=== PATIENT | male | born 1980 | race Caucasian/White ===

== ENCOUNTER → 2017-06-23 11:16 | Outpatient (CLI) | payer OTHER, SELFPAY ==
--- NOTE | 2017-06-23 11:23 | RAD_ITS ---
STUDY: X-RAY - LEFT KNEE REASON FOR EXAM: Male, 37 years old. Left knee pain. TECHNIQUE: 3 view(s) of the knee. COMPARISON: None. FINDINGS: Normal visualized distal femur. Normal visualized proximal tibia and fibula. Normal proximal tibiofibular articulation. Normal medial femorotibial compartment. Normal lateral femorotibial compartment. Normal patellofemoral articulation. The soft tissue structures are unremarkable. RAD/Knee 3 Views IMPRESSION: Normal x-ray examination of the knee. Electronically Signed: Adrien Butcher MD at 16:04 EST Tel [phone], Service support ,
== END ==
PROVIDERS: Family Provider Family Medicine; PCP Family Medicine; Visit Provider Family Medicine
DX: M25.562 Pain in left knee (principal)
CPT/HCPCS: 73562

== ENCOUNTER 2017-08-02 07:52 | Outpatient (RCR) | payer OTHER, SELFPAY ==
--- NOTE | 2017-08-02 08:45 | HP.PTEVAL_ITS ---
Patient's Visit Information CAYDEN CREWS is a 37 year old M referred to Physical Therapy by Cyrus MARTINEZ with a diagnosis of Left Knee Pain. Date of Evaluation: 08/02/17 Physical Therapist: Conchis Caruso - Visit Plan Frequency: 1x/Week Duration: 4 Weeks Plan: HEP - Subjective Subjective: Patient reports left knee around Thanksgiving- felt a pulsating intense pain behind the knee cap just standing- lasted 20 seconds- very painful - continued to do this for about 2-3 days then it went away completely. Comes and goes. A month ago it started up again- less pulsing and more of a stabbing pain on the outside. Random but was happening more- he can shift and the pain goes away. Now it happens once every couple of days. Can't seem to re-create the pain or know when its going to happen. 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 Has been working out more 2x a week- no legs yet- running (track) and upper body. No pattern and can't figure it out. Worst: 6/10 Best: 0/10 Describes as sharp stabbing on the lateral joint line. no radiating no N/T. Has never had knee problems before that. Normally wears good shoes for work. Has had an x-ray which was negative and has an MRI scheduled tomorow at the hospital. Sleep: no- side PMHx: none Meds: Naproxen. - Objective Posture: good throughout. Gait: no deviation. SLS: 15 sec then lob. HR/TR: wnl. squat: weight shift to the right mild. ROM: 0-130 degrees. WNL: wnL. Strength: ankle: 5/5, Knee: 5/5, Hip: 4+/5. Flex: HS: severe, gastroc: mod. Special Test: Lloyd: negative - Goals Goal 1:: Patient will be I with HEP and progression Goal Time Frame: 4-6 Weeks Goal 2:: Patient will report 0/10 pain for 1 week Goal Time Frame: 4-6 Weeks - Rehabilitation Potential Physical Therapy Diagnosis: Patient presents with hypomobility- he has decreased strength and stabilization on the left leading to increased pain Rehabilitation Potential: Good - Anticipated Interventions Patient/Client Instruction: Educate patient on: Condition For the Purpose of:: To improve muscle performance and motor function Therapeutic Exercise to Include: Strength training, Endurance training, Balance training, Agility training, Body mechanics, Flexibilty training, Dynamic Lumbar Stabilization For the Purpose of:: To improve muscle performance and motor function Thank you for the opportunity to evaluate your patient. For Medicare and Medicare HMO plans, please review the plan of care and approve it. It will need to be FAXED BACK to us at [phone] for Medicare purposes. Please let me know if there are questions or concerns regarding this plan of care. Physician Signature: Date:
--- NOTE | 2017-10-04 14:08 | HP.PT.NRP ---
HP - Discharge Summary (1) - Patient Information CAYDEN CREWS was seen in my office for initial evaluation on 08/02/17. The following Plan of Care was established for this patient: Initial Frequency: 1x/Week Initial Duration: 4 Weeks - Anticipated Interventions Patient/Client Instruction: Educate patient on: Condition For the Purpose of:: To improve muscle performance and motor function Therapeutic Exercise to Include: Strength training, Endurance training, Balance training, Agility training, Body mechanics, Flexibilty training, Dynamic Lumbar Stabilization For the Purpose of:: To improve muscle performance and motor function This patient was last seen in our office . Pertinent comments regarding their Physical therapy will appear below: Patient has not returned for 60 days and is appropriate for discharge. Return to MD for further evaluation as needed. At this point I will be discontinuing this patient from physical therapy. I would be happy to see this patient again in the future if found appropriate by the physician. Thank you! Conchis Caruso
== END 2017-08-02 19:00 | disposition home or self-care (01) ==
LOC: PT 07:52
PROVIDERS: Family Provider Family Medicine; PCP Family Medicine; Visit Provider Family Medicine
DX: M25.562 Pain in left knee (principal)
CPT/HCPCS: 97161

== ENCOUNTER → 2017-08-03 09:24 | Outpatient (CLI) | payer OTHER, SELFPAY ==
--- NOTE | 2017-08-03 09:29 | MRI_ITS ---
STUDY: MRI LEFT KNEE REASON FOR EXAM: Anterior knee pain since March, no specific injury. TECHNIQUE: Standardized fat and water weighted pulse sequences were obtained in all 3 orthogonal planes. COMPARISON: Radiographs 06/23/2017. FINDINGS: Normal medial meniscus. Normal hyaline cartilage of the medial femorotibial compartment. Normal medial femoral condyle and tibial plateau. Normal medial collateral ligamentous complex (MCL). There is a small volume of fluid in the semimembranosus bursa (T2 sagittal image 4). Normal lateral meniscus. Normal hyaline cartilage of the lateral femorotibial compartment. Normal lateral femoral condyle and tibial plateau. Normal proximal tibiofibular articulation. Normal lateral collateral (fibular) ligament. Normal popliteus tendon. Normal biceps femoris tendon. Normal anterior cruciate ligament (ACL). Normal posterior cruciate ligament (PCL). Normal congruent patellofemoral articulation. There is a small chondral tear of the lateral patellar facet near the median ridge (T2 axial image 9). Normal medial and lateral patellar retinaculum. Normal visualized quadriceps tendon. Normal patellar tendon. Normal Hoffa's fat pad. There is no joint effusion. There is a minimal popliteal cyst (T2 coronal image 2). The otherwise visualized osseous structures are unremarkable. MRI/Lower Ext Joint Only (Routine) IMPRESSION: Small chondral tear of the lateral patellar facet. Mild semimembranosus bursitis. No demonstrated meniscal or ligamentous injury. Electronically Signed: Hugh Carrera MD at 10:38 EDT Tel , Service support ,
== END ==
PROVIDERS: Family Provider Family Medicine; PCP Family Medicine; Visit Provider Family Medicine
DX: M25.569 Pain in unspecified knee (principal)
CPT/HCPCS: 73721

== ENCOUNTER → 2020-01-30 09:39 | Outpatient (CLI) | payer OTHER, SELFPAY ==
[2017-08-11 09:31] VITALS: BMI 25.9
[2020-01-30 12:54] LABS: Absolute Lymphocyte Count 2.36 X10^3/uL (0.83-4.51); Absolute Neutrophil Count 3.3 X10^3/uL (2.0-7.7); Basophil# 0.04 X10^3/uL; Basophil% 0.6 % (0-1); Eosinophil# 0.22 X10^3/uL; Eosinophils% 3.3 % (0-5); Hematocrit 48.5 % (40-54); Hemoglobin 15.6 g/dL (13.0-16.5); Lymphocyte # 2.36 X10^3/ul (4.0); Lymphocyte % 35.6 % (19-41); Mean Corp Hgb Conc 32.2 g/dL (32-36); Mean Corpuscular Hgb 29.2 pg (27.0-32.0); Mean Corpuscular Volume 90.8 fL (80-94); Mean Platelet Vol. 11.8 fl (6.2-12.0); Monocyte# 0.66 X10^3/uL; NRBC Flagged by Analyzer 0 % (0-5); Neutrophil # 3.33 X10^3/uL (2.7-7.7); Neutrophil % 50.2 % (47-70); Platelet Count 221 K/mm3 (150-450); RBC Distribution Width CV 12.8 % (11.6-14.6); RBC Distribution Width SD 41.8 fl (35.1-43.9); Red Blood Count 5.34 M/mm3 (4.6-6.2); White Blood Count 6.6 K/mm3 (4.4-11.0)
[2020-01-30 13:19] LABS: Anion Gap 3 (5-15); BUN 19 mg/dL (7-18); BUN/Creat Ratio 20.8 RATIO (10-20); Calcium,Total 8.8 mg/dL (8.5-10.1); Chloride 109 mmol/L (98-107); Cholesterol 229 mg/dL (200); Creatinine, Serum 0.91 mg/dL (0.70-1.30); EST Glomerular Filtration Rate 97 mL/min (>60); Est Glom Filt Rate - Afr Amer 117 mL/min (>60); Glucose 100 mg/dL (74-106); High Density Lipoprotein 51 mg/dL; Potassium 3.7 mmol/L (3.5-5.1); Sodium Level 142 mmol/L (136-145); Thyroid Stim Hormone (TSH) 1.16 uIU/mL (0.358-3.74); Triglycerides 73 mg/dL; Very Low Density Lipoprotein 15 mg/dL (5-40)
[2020-01-30 13:58] LABS: Vitamin D,25 Hydroxy 45.5 ng/mL
== END ==
PROVIDERS: PCP Family Medicine; Referring Provider Family Medicine; Visit Provider Family Medicine
DX: Z00.00 Encounter for general adult medical examination without abnormal findings (principal); R53.83 Other fatigue
CPT/HCPCS: 36415; 80048; 80061; 82306; 84443; 85025

== ENCOUNTER → 2020-07-10 11:29 | Outpatient (CLI) | payer OTHER, SELFPAY ==
[2017-08-11 09:31] VITALS: BMI 25.9
[2020-07-10 16:11] LABS: Cholesterol 147 mg/dL (200); High Density Lipoprotein 53 mg/dL; Triglycerides 52 mg/dL; Very Low Density Lipoprotein 10 mg/dL (5-40)
== END ==
PROVIDERS: PCP Family Medicine; Referring Provider Family Medicine; Visit Provider Family Medicine
DX: E78.5 Hyperlipidemia, unspecified (principal)
CPT/HCPCS: 36415; 80061

== ENCOUNTER → 2021-02-26 13:32 | Outpatient (CLI) | payer OTHER, SELFPAY ==
--- NOTE | 2021-02-26 13:37 | VDLE_ITS ---
Reason For Study: Phlebitis amd thrombophlebitis Procedure LEFT This is a venous duplex using B-mode, color GSV is normal. flow and spectral Doppler. CFV is compressible, spontaneous, phasic, Exam performed in department. competent, and demonstrates normal A preliminary report was called and/or faxed augmentation. to Mark[facility]. FV is compressible, spontaneous, phasic, competent and demonstrates normal augmentation. POP V is compressible, spontaneous, phasic, competent and demonstrates normal augmentation. T/P Trunk is compressible. PTV is compressible. LT PerV is compressible. VL/Venous Duplex US, Unilateral Interpretation Summary Deep veins of the left lower extremity are patent and compressible segmentally. There is no evidence of left lower extremity deep vein thrombosis. Valvular competence appears intac t within the proximal deep venous system on the left . The left great saphenous vein appears patent a nd compressible segmentally. Ordering Physician: Sung Aparicio Referring Physician: Cyrus Quinn Performed By: Venus Clark RVT
== END ==
PROVIDERS: PCP Family Medicine; Referring Provider Family Medicine; Visit Provider Family Medicine
DX: I80.3 Phlebitis and thrombophlebitis of lower extremities, unspecified (principal)
CPT/HCPCS: 93971

== ENCOUNTER → 2021-05-06 12:42 | Outpatient (CLI) | payer OTHER, SELFPAY ==
--- NOTE | 2021-05-06 12:49 | VDLE_ITS ---
Reason For Study: swelling RIGHT LEFT CFV is compressible, spontaneous, phasic, CFV is compressible, spontaneous, phasic, competent and demonstrates normal competent, and demonstrates normal augmentation. augmentation. FV is compressible, spontaneous, phasic, FV is compressible, spontaneous, phasic, competent and demonstrates normal competent and demonstrates normal augmentation. augmentation. POP V is compressible, spontaneous, phasic, POP V is compressible, spontaneous, phasic, competent and demonstrates normal competent and demonstrates normal augmentation. augmentation. T/P Trunk is compressible. T/P Trunk is compressible. PTV is compressible. PTV is compressible. RT PerV is compressible. LT PerV is compressible. SFJ is competent and measures .97 cm. SFJ is competent and measures .67 cm. GSV proximal thigh measures .43 x .46 cm. GSV proximal thigh measures .34 x .37 cm. GSV at knee measures .44 x .44 cm. GSV at knee measures .27 x .27 cm. GSV INCOMPETENT throughout for greater than GSV INCOMPETENT throughout for greater than 0.5 seconds. 0.5 seconds. SSV proximal calf is INCOMPETENT for greater SSV proximal calf is competent and than 0.5 seconds and measures .47 x .49 cm. measures .33 x .37 cm. Exchange Specialist V 7 cm proximal tot he medial malleolus is incompetent for greater than .5 seconds. Procedure This is a venous duplex using B-mode, color flow and spectral Doppler. Exam performed in department. The exam was diagnostic. VL/Venous Duplex US - Moreno Extrem Interpretation Summary Deep veins of the lower extremities are bilaterally patent and compressible seg mentally. There is no evidence of deep vein thrombosis on either side. Valvular competence appears in tact within the proximal deep venous systems bilaterally. The great saphenous veins appear bila terally patent and compressible segmentally. Sapheno-femoral junctions are bilaterally competent . Segmental valvular incompetence is noted within the great saphenous veins bilaterally. The right s mall saphenous vein is patent and incompetent. The left small saphenous vein is patent and competen t. 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 Ordering Physician: Parveen Agee Performed By: Ochao Pereira RVT
== END ==
PROVIDERS: PCP Family Medicine; Referring Provider Surgery; Visit Provider Surgery
DX: I83.12 Varicose veins of left lower extremity with inflammation (principal); I80.02 Phlebitis and thrombophlebitis of superficial vessels of left lower extremity
CPT/HCPCS: 93970

== ENCOUNTER → 2022-02-26 | Outpatient (CLI) | payer OTHER, SELFPAY ==
[2022-02-26 11:27] LABS: ALB/GLOB Ratio 1.1 RATIO (0.9-2.4); AST(SGOT) 13 U/L (15-37); Alanine Aminotransfer ALT/SGPT 50 U/L (16-61); Albumin, Serum 3.7 g/dL (3.2-5.0); Alkaline Phosphatase 63 U/L (45-117); Anion Gap 8 (5-15); BUN 17 mg/dL (7-18); Chloride 106 mmol/L (98-107); Cholesterol 177 mg/dL (200); Creatinine, Serum 0.95 mg/dL (0.70-1.30); EST Glomerular Filtration Rate 92 mL/min (>60); Est Glom Filt Rate - Afr Amer 111 mL/min (>60); Globulin 3.5 g/dL (2.2-4.2); Glucose 107 mg/dL (74-106); High Density Lipoprotein 49 mg/dL; Potassium 3.8 mmol/L (3.5-5.1); Protein, Total 7.2 g/dL (6.4-8.2); Sodium Level 141 mmol/L (136-145); Triglycerides 80 mg/dL; Very Low Density Lipoprotein 16 mg/dL (5-40)
== END | disposition home or self-care (01) ==
LOC: MFPLAB 09:30
PROVIDERS: PCP Family Medicine; Referring Provider Family Medicine; Visit Provider Family Medicine
DX: E78.5 Hyperlipidemia, unspecified (principal)
CPT/HCPCS: 36415; 80053; 80061

== ENCOUNTER → 2022-09-11 | Outpatient (CLI) | payer OTHER, SELFPAY ==
--- NOTE | 2022-09-11 17:15 | RAD_ITS ---
EXAM: XR PELVIS, 1 OR 2 VIEWS CLINICAL INDICATION: BACK PAIN TECHNIQUE: Frontal view of the pelvis. COMPARISON: No relevant prior studies available. FINDINGS: BONES/JOINTS: Mild degenerative changes of the hips. No displaced fracture. No destructive or sclerotic lesions. Note that overlapping bowel shadows may however obscure fine detail. Sacroiliac joints are unremarkable. No widening of the pubic symphysis. SOFT TISSUES: Unremarkable. No soft tissue swelling or gas. RAD/Pelvis 1 or 2 Views IMPRESSION: Mild degenerative changes of the hips. Electronically Signed: Jesus Correa MD at 1:48 EDT ,
== END | disposition home or self-care (01) ==
LOC: RAD 17:09
PROVIDERS: PCP Family Medicine
DX: M54.9 Dorsalgia, unspecified (principal)
CPT/HCPCS: 72170

== ENCOUNTER → 2023-01-12 | Outpatient (CLI) | payer OTHER, SELFPAY ==
[2023-01-12 10:39] LABS: ALB/GLOB Ratio 1.2 RATIO (0.9-2.4); AST(SGOT) 20 U/L (15-37); Alanine Aminotransfer ALT/SGPT 47 U/L (16-61); Albumin, Serum 3.8 g/dL (3.2-5.0); Alkaline Phosphatase 69 U/L (45-117); Anion Gap 4 (5-15); BUN 21 mg/dL (7-18); BUN/Creat Ratio 20.8 RATIO (10-20); Chloride 108 mmol/L (98-107); Cholesterol 141 mg/dL (200); Creatinine, Serum 1.01 mg/dL (0.70-1.30); EST Glomerular Filtration Rate 85 mL/min (>60); Est Glom Filt Rate - Afr Amer 103 mL/min (>60); Globulin 3.3 g/dL (2.2-4.2); Glucose 113 mg/dL (74-106); High Density Lipoprotein 44 mg/dL; Potassium 3.7 mmol/L (3.5-5.1); Protein, Total 7.1 g/dL (6.4-8.2); Sodium Level 142 mmol/L (136-145); Triglycerides 60 mg/dL; Very Low Density Lipoprotein 12 mg/dL (5-40)
== END | disposition home or self-care (01) ==
LOC: MTLAB 07:34
PROVIDERS: PCP Family Medicine; Referring Provider Family Medicine; Visit Provider Family Medicine
DX: E78.5 Hyperlipidemia, unspecified (principal)
CPT/HCPCS: 36415; 80053; 80061

== ENCOUNTER → 2023-07-27 | Outpatient (CLI) | payer OTHER, SELFPAY ==
--- OUTSIDE RECORDS SUMMARY | 2023-07-27 07:06 | XMS RPT_ITS | CCD ---
Author Name Unknown Address [address] [place] [address] Organization [facility] Results Test Name Value Interpretation Reference Range Facil ity Progress note 01-19-2022 Note Date & Type Note Facility 01-19-2022 Note HNO ID: [id number] Author: Maria A Agee APRN.SHAREHOLDER Service: ? Author Type: Nurse Practitioner Type: Progress Notes Filed: 01/19/2022 10:25 AM Note Text: CC: Patient presents with: Sinus Problem: X 2 weeks HPI: Cayden Crews is a 41 year old male who presents to the office with complaint of head congestion, cough, nonproductive, and sinus symptoms for 2 weeks. Symptoms are staying the same. Associated symptoms includes nasal congestion and facial pain/pressure. Denies headache, nausea, vomiting , and diarrhea. Treatments tried include nothing so far. with no relief of symptoms. Sick contacts: unknown. History of asthma, frequent episodes of bronchitis, chronic bronchitis, bronchiectasis or COPD: No Smoker: No Seasonal/environmental allergies: No The ROS is otherwise negative. The patient's pmh, medications, allergies, and past visits are reviewed. PHYSICAL EXAM: BP 140/78 Pulse 70 Temp 36.2 ?C (97.1 ?F) Resp 21 Wt 120.6 kg (265 lb 12.8 oz) SpO2 100% BMI 30.72 kg/m? General appearance: alert, cooperative, pleasant, in no acute distress Head: Normocephalic Eyes: EOM's intact, conjunctiva pink and moist, no icterus, sclera white, non-injected Ears: Right ear: External ear/canal- Normal, TM - clear with good landmarks. Left ear: External ear/canal- Normal, TM - clear with good landmarks Oropharynx:moist without lesions, No erythema, exudates or tonsillar hypertrophy. Heart: Negative. RRR without obvious murmur, gallop, or rubs. No ectopy. Lungs: clear to auscultation, without rales or wheeze, good air exchange PAST MEDICAL HISTORY Diagnosis Date NEGATIVE MEDICAL HISTORY PAST SURGICAL HISTORY Procedure Laterality Date PAST SURGICAL HISTORY OF wisdom teeth extracted PRQ SKELETAL FIXJ METACARPAL FX EACH BONE Right 03/20/2016 Right 5th [facility] closed reduction AND percutaneous pinning ALLERGIES Seasonal Allergies MEDICATIONS aspirin, enteric coated (ASPIRIN, ENTERIC COATED) 81 mg EC tablet Take 81 mg by mouth once daily. rosuvastatin (CRESTOR) 5 mg tablet Take 5 mg by mouth daily at bedtime. Coenzyme Q10 200 mg cap Take 200 mg by mouth once daily. FLAXSEED OIL ORAL Take 1 teaspoonful by mouth once daily. multivitamin tablet Take 1 tablet by mouth once daily. loratadine (CLARITIN) 10 mg tablet Take 10 mg by mouth as needed. amoxicillin-clavulanic acid (AUGMENTIN) 875-125 mg per tablet Take 1 tablet by mouth twice daily for 5 days. fluticasone (FLONASE) 50 mcg/actuation nasal spray Use 2 Sprays in each nostril once daily. Rinse mouth after use. (Patient not taking: Reported on 01/19/2022) doxycycline 20 mg tablet Take 20 mg by mouth twice daily. (x 3 months) (Patient not taking: Reported on 01/19/2022) fluticasone (FLONASE) 50 mcg/actuation nasal spray Use 2 Sprays in each nostril once daily. Rinse mouth after use. (Patient not taking: Reported on 01/19/2022) FAMILY HISTORY Problem Relation Age of Onset Hypertension Mother Diabetes Father Hypertension Father Hyperlipidemia Father Social History Tobacco Use Smoking status: Never Smokeless tobacco: Never Substance Use Topics Alcohol use: Yes Comment: rare, one glass of wine every 6 months Drug use: No ASSESSMENT/PLAN: 1. Acute cough - ICD9: 786.2, ICD10: R05.1 (primary diagnosis) 2. Sinus pressure - ICD9: 478.19, ICD10: J34.89 Augmentin bid for 5 days. Prescription instructions reviewed with patient as applicable. Potential red flag symptoms discussed with the patient. Reviewed appropriate action plan to take if red flag symptoms occur. Patient agreeable to treatment plan. Maria A Agee APRN.SHAREHOLDER [facility] Progress note 07-27-2021 Note Date & Type Note Facility 07-27-2021 Note HNO ID: [id number] Author: Chip Rico APRN.ARSEN Service: ? Author Type: Nurse Practitioner Type: Progress Notes Filed: 07/27/2021 11:29 AM Note Text: Subjective HPI HPI Cayden Crews is a 41 year old male who presents today for CC of sinus pressure, cough, st. This started 5 days ago/worsening. Has tried otc medication without relief. Symptoms are worsened by nothing. Risk factors sick exposures at home. nonsmoker. .Patient presents with: Cough: cough, congestion and St x 5 days PAST MEDICAL HISTORY Diagnosis Date - NEGATIVE MEDICAL HISTORY PAST SURGICAL HISTORY Procedure Laterality Date - PAST SURGICAL HISTORY OF wisdom teeth extracted - PRQ SKELETAL FIXJ METACARPAL FX EACH BONE Right 03/20/2016 Right 5th [facility] closed reduction AND percutaneous pinning ALLERGIES Seasonal Allergies MEDICATIONS aspirin, enteric coated (ASPIRIN, ENTERIC COATED) 81 mg EC tablet Take 81 mg by mouth once daily. rosuvastatin (CRESTOR) 5 mg tablet Take 5 mg by mouth daily at bedtime. Coenzyme Q10 200 mg cap Take 200 mg by mouth once daily. doxycycline 20 mg tablet Take 20 mg by mouth twice daily. (x 3 months) fluticasone (FLONASE) 50 mcg/actuation nasal spray Use 2 Sprays in each nostril once daily. Rinse mouth after use. FLAXSEED OIL ORAL Take 1 teaspoonful by mouth once daily. multivitamin tablet Take 1 tablet by mouth once daily. loratadine (CLARITIN) 10 mg ORAL tablet Take 10 mg by mouth as needed. predniSONE (DELTASONE) 20 mg tablet Take 2 tablets by mouth once daily for 5 days. fluticasone (FLONASE) 50 mcg/actuation nasal spray Use 2 Sprays in each nostril once daily. Rinse mouth after use. doxycycline monohydrate 100 mg tablet Take 1 tablet by mouth twice daily for 10 days. May transfer to [facility] if less expensive. FAMILY HISTORY Problem Relation Age of Onset - Hypertension Mother - Diabetes Father - Hypertension Father - Hyperlipidemia Father Social History Tobacco Use - Smoking status: Never Smoker - Smokeless tobacco: Never Used Substance Use Topics - Alcohol use: Yes Comment: rare, one glass of wine every 6 months - Drug use: No ROS Objective Blood pressure 112/78, pulse 66, temperature 36.4 ?C (97.6 ?F), temperature source Tympanic, resp. rate 16, weight 116.4 kg (256 lb 9.6 oz), SpO2 100 %. Physical Exam Constitutional: General: He is not in acute distress. Appearance: He is not toxic-appearing or diaphoretic. HENT: Head: Normocephalic and atraumatic. Nose: Congestion present. Right Sinus: Maxillary sinus tenderness and frontal sinus tenderness present. Left Sinus: Maxillary sinus tenderness and frontal sinus tenderness present. Cardiovascular: Rate and Rhythm: Normal rate and regular rhythm. Heart sounds: Normal heart sounds, S1 normal and S2 normal. Pulmonary: Effort: Pulmonary effort is normal. Breath sounds: Normal breath sounds. Lymphadenopathy: Cervical: No cervical adenopathy. Right cervical: No superficial cervical adenopathy. Left cervical: No superficial cervical adenopathy. Neurological: Mental Status: He is alert and oriented to person, place, and time. Gait: Gait is intact. ASSESSMENT/PLAN: 1. Sinobronchitis - ICD9: 473.9, 490, ICD10: J32.9, J40 Start treatment with prednisone and fluticasone. If no improvement fill and take atb in 5 days. - Supportive care with plenty of fluids, rest, and analgesia prn. - Follow up in 3-5 days if symptoms persist or worsen. - PREDNISONE 20 MG TABLET - FLUTICASONE PROPIONATE 50 MCG/ACTUATION NASAL SPRAY,SUSPENSION - DOXYCYCLINE MONOHYDRATE 100 MG TABLET Agrees to plan Declines nicholes Chip Rico APRN.SHAREHOLDER [facility] Progress note 06-09-2021 Note Date & Type Note Facility 06-09-2021 Note HNO ID: [id number] Author: Charlie Wolf, DO Service: ? Author Type: Physician Type: Progress Notes Filed: 06/09/2021 3:23 PM Note Text: [facility] Department of Cardiovascular Medicine SECTION OF VASCULAR MEDICINE OUTPATIENT VISIT DATE June 09, 2021 OUTPATIENT VISIT TYPE New Patient Consult regarding: Varicose veins Consult requested by: Self My final recommendations will be communicated back to the requesting physician by way of the shared medical record or by letter. Primary care physician: Cyrus Quinn MD, MD History of present illness: 41 year old man with PMH HLD here for varicose vein evaluation. Rate pain (scale of 1-10): 3 (right leg worse than left). Right Left Heaviness Yes No Pain and/or aching Yes No Throbbing No No Fatigue No No Itching No No Burning No No Leg muscle cramps No No Ankle swelling Yes Yes Leg ulcers No No Skin discoloration No No How long have you had symptoms? 5+years Have they been getting worse, over what time frame? Slowly worsening with time. Do you take anything for relief of pain? No Do symptoms effect your ability to perform activities? no Have you modified your activities due to leg symptoms? no Do you avoid certain activities due to leg symptoms? no Do symptoms effect your work? no Have you been evaluated by a physician? Yes, [facility] vein center Have you had an ultrasound? Yes, study which was positive for right GSV and SSV incompetency, left GSV incompetency. Have you had any vein procedures? no Have you worn compression socks? yes -- what strength? 20-30mmhg -- how long have your worn? Since February 2021, about 3 months. Have you ever had a blood clot or phlebitis? Yes, left calf SVT 02/2021. Family history of vein problems? 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 His vein provider recommended right leg intervention with Variclose. He was also started on knee high 20-30mmHg compression stockings. He elected to come to [facility] for a second opinion. In the last 5 years has had more patched of reticular and spider veins form on both legs including thigh and calf. He has no skin discoloration from it. No ulcer history. Last fall ~02/2021 he head left calf pain which was diagnosed as superficial thrombophlebitis in the left calf. This was managed with aspirin, warm compression leg elevation. Pain went away. Never required anticoagulation. No history of DVT. Father with varicose vein history. He works on his feet. Allergies: is allergic to seasonal allergies. Medications: aspirin, enteric coated (ASPIRIN, ENTERIC COATED) 81 mg EC tablet Take 81 mg by mouth once daily. rosuvastatin (CRESTOR) 5 mg tablet Take 5 mg by mouth daily at bedtime. Coenzyme Q10 200 mg cap Take 200 mg by mouth once daily. doxycycline 20 mg tablet Take 20 mg by mouth twice daily. (x 3 months) fluticasone (FLONASE) 50 mcg/actuation nasal spray Use 2 Sprays in each nostril once daily. Rinse mouth after use. FLAXSEED OIL ORAL Take 1 teaspoonful by mouth once daily. multivitamin tablet Take 1 tablet by mouth once daily. loratadine (CLARITIN) 10 mg ORAL tablet Take 10 mg by mouth as needed. Past medical history: has a past medical history of NEGATIVE MEDICAL HISTORY. Past surgical history: has a past surgical history that includes past surgical history of and prq skeletal fixj metacarpal fx each bone (Right, 03/20/2016). Family history: family history includes Diabetes in his father; Hyperlipidemia in his father; Hypertension in his father and mother. Social history: reports that he has never smoked. He has never used smokeless tobacco. He reports current alcohol use. He reports that he does not use drugs. REVIEW OF SYSTEMS: General Fever or chills - No Night sweats - No Change in weight - No Lumps in groin, underarms - No Neurological Headaches - No Seizures - No Passing out - No Dizziness/light headedness - No Numbness, tingling, pins or needles - No Weakness in arms or legs - No Head, eyes, ears, nose and throat Changes in hearing - No Changes in vision - No Nose bleeds - No Difficulty or pain with swallowing - No Cardiovascular Chest pain or pressure - No Palpitations - No Irregular heartbeat - No Shortness of breath - No Respiratory Cough - No Wheezing - No Shortness of breath at rest - No Shortness of breath with exertion - No Coughing up blood - No Sleep apnea - No Gastrointestinal Abdominal pain - No Nausea/vomiting - No Diarrhea/Constipation - No Stomach pain after eating - No Blood in stool - No Black stool - No Genitourinary Pain with urination - No Blood in urine - No Extremity Bulging veins - YES Swelling in arms or legs - YES Redness of extremities - No (more content not included)... [facility] Summary Purpose Family History No Family History Records Found Advance Directives No Advanced Directives Records Found Additional Source Comments (unrecognized sect ion and content) No Status Records Found INFORMATION SOURCE (unrecogn ized section and content) FOR RECORDS PERTAINING TO PATIENTS WHO ARE OR HAVE BEEN ENROLLED IN A CHEMICAL DEPENDENCY/SUBSTANCEABUSE PROGRAM, SOME INFORMATION MAY BE OMITTED. This clinical summary was aggregated from multiple sources. Caution should be exercised in using it in the provision of clinical care. This summary normalizes information from multiple sources, and as a consequence, information in this document may materially change the coding, format and clinical context of patient data. In addition, data may be omitted in some cases. CLINICAL DECISIONS SHOULD BE BASED ON THE PRIMARY CLINICAL RECORDS. [facility] [employer] [facility]. provides no warranty or guarantee of the accuracy or completeness of information in this document.
[2023-07-27 10:26] LABS: Hemoglobin A1c 5.9 % (3.8-5.6)
[2023-07-27 10:38] LABS: Anion Gap 5 (5-15); BUN 18 mg/dL (7-18); BUN/Creat Ratio 19.7 RATIO (10-20); Calcium,Total 8.9 mg/dL (8.5-10.1); Chloride 108 mmol/L (98-107); Cholesterol 131 mg/dL (200); Creatinine, Serum 0.91 mg/dL (0.70-1.30); EST Glomerular Filtration Rate 95 mL/min (>60); Est Glom Filt Rate - Afr Amer 115 mL/min (>60); Glucose 115 mg/dL (74-106); High Density Lipoprotein 50 mg/dL; Potassium 3.9 mmol/L (3.5-5.1); Sodium Level 142 mmol/L (136-145); Triglycerides 54 mg/dL; Very Low Density Lipoprotein 11 mg/dL (5-40)
== END | disposition home or self-care (01) ==
PROVIDERS: PCP Family Medicine; Referring Provider Family Medicine; Visit Provider Family Medicine
DX: R73.9 Hyperglycemia, unspecified (principal); E78.5 Hyperlipidemia, unspecified
CPT/HCPCS: 36415; 80048; 80061; 83036

== ENCOUNTER → 2024-12-09 | Outpatient (CLI) | payer OTHER, SELFPAY ==
--- OUTSIDE RECORDS SUMMARY | 2024-12-09 07:33 | XMS RPT_ITS | CCD ---
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 Cyrus Quinn Primary Care Provider Dr. Cyrus Quinn Referring Provider Dr. Ingrid Campbell Attending Provider Uri Ortiz Attending Unavailable Cyrus Quinn Primary Care Unavailable Cyrus Quinn Referring Unavailable Ochoa Gill Attending Unavailable Cyrus Quinn Primary Care Unavailable Cyrus Quinn Referring Unavailable Sekou Alberto Attending Unavailable Cyrus Quinn Primary Care Unavailable Medications Current Medications Medication Drug Class(es) Dates Sig (Normalized) Sig (Original) fluticasone propionate 0.05 mg/actuat metered dose nasal spray (3 sources) Corticosteroid Start: 03-20-2022 take 1 spray(s) nasal route once daily Fluticasone Propionate (Flonase Allergy Relief) 50 mcg/actuation spray,suspension Active 1 SPRAY INTRANASAL DAILY March 20, 2022 12:00am administer into each nostril loratadine 10 mg oral tablet (4 sources) Start: 09-17-2020 take 1 tablet by mouth once daily Loratadine (Claritin) 10 mg tablet Active 10 MG PO DAILY September 17, 2020 12:00am rosuvastatin calcium 5 mg oral tablet (4 sources) HMG-CoA Reductase Inhibitor Start: 09-17-2020 Rosuvastatin Active TAB PO September 17, 2020 12:00am vitamin K2 (3 sources) Start: 03-20-2022 take 45 ug by mouth once daily Vitamin K2 Active 45 MCG PO DAILY March 20, 2022 12:00am Completed/Discontinued Medications Medication Drug Class(es) Dates Sig (Normalized) Sig (Original) amoxicillin 875 mg / clavulanate 125 mg oral tablet (3 sources) Penicillin-class Antibacterial Start: 03-20-2022 End: 03-30-2022 take 1 tablet by mouth every twelve hours Amoxicillin-Pot Clavulanate Discontinued 1 TABLET PO Q12H 05 03March 20, 2022 12:00am March 30, 2022 1:04am Problems Problem Classification Problem Date Documented Da te Episodic/Chronic Allergic reactions (4 sources) H/O: non-drug allergy; Translations: [Allergy status to unspecified drugs, medicaments and biological substances status] 09-17-2020 Episodic Disorders of lipid metabolism (4 sources) Hypercholesterolem ia; Translations: [Pure hypercholesterolem ia, unspecified] 09-17-2020 Chronic Other bone disease and musculoskeletal deformities (12 sources) Segmental and somatic dysfunction; Translations: [Segmental and somatic dysfunction of lumbar region] 09-17-2020 Episodic Other bone disease and musculoskeletal deformities (11 sources) Segmental and somatic dysfunction of lumbar region; Translations: [Nonallopathic lesions, lumbar region] Episodic Other bone disease and musculoskeletal deformities (11 sources) Segmental and somatic dysfunction of pelvic region; Translations: [Nonallopathic lesions, pelvic region] Episodic Other bone disease and musculoskeletal deformities (11 sources) Segmental and somatic dysfunction of thoracic region; Translations: [Nonallopathic lesions, thoracic region] Episodic Other upper respiratory infections (3 sources) Acute sinusitis; Translations: [Acute sinusitis, unspecified] 03-20-2022 Episodic Spondylosis; intervertebral disc disorders; other back problems (15 sources) Backache; Translations: [Dorsalgia, unspecified] Episodic Unclassified (1 source) Cough, unspecified; Translations: [Cough, unspecified] Onset: 04-10-2024 Results Test Name Value Interpretation Reference Range Facility Urgent Care Visit Reporton 0 07-19-2024 Urgent Care Visit Report [facility] [address], [address] [place] [id number] OFFICE VISIT Date of Service: 07/19/24 MR#: [id number] Acct: [id number] Name: ROB DWYER Rep #: [id number] : 1980 Provider: ALISE Gill Age/Sex: 44/M Location: [facility] Status: Signed Intake Vital Signs 03/20/22 17:39 Height 6 ft 6 in Intake Visit Reasons: SORE THROAT, COUGH, SNEEZING Chief Complaint: cough, congestion/ l eye irritation Accompanied by: Self Allergies No Known Allergies Allergy (Verified 04/10/24 09:32) Medications ???Medication ???Instructions ???Recorded ???Confirmed ???Type loratadine 10 mg tablet (Claritin) 10 mg PO DAILY PRN 09/17/2010/08 History rosuvastatin 5 mg tablet tablet PO 09/17/20 07/19/24 Histor y fluticasone propionate 50 1 spray intranasal DAILY 03/20/22 07/19/24 History mcg/actuation nasal spray,suspension (Flonase Allergy Relief) vitamin K2 45 mcg capsule 45 mcg PO DAILY 03/20/22 07/19/24 History coenzyme Q10 50 mg capsule 50 mg PO QDAY 07/19/24 07/19/24 Hi story meloxicam 15 mg tablet mg PO DAILY 07/19/24 07/19/24 Hist ory multivitamin (Multiple Vitamins 1 tab PO QAM 07/19/24 07/19/24 His tory tablet) Nurse's Note: Patient has ST,cough. Patient states Wednesday he went to sleep with a Runny nose tues woke up with those symptoms. Patient states he may have body aches but unsure if its due to him being sick or cause he is old and did yard work Wednesday. [facility] Medical History (Updated 07/19/24 @ 08:50 by ALISE Johnson) Viral illness High cholesterol History of hand fracture History of fibula fracture History of seasonal allergies Surgical History History of wisdom tooth extraction History of vasectomy H/O hand surgery Family History Grandfather Colon cancer Brother Depression Father High cholesterol Grandmother Skin cancer Social History Smoking Status: Never smoker alcohol intake: never substance use type: does not use what type of physical activity do you participate in: none HPI HPI Chief Complaint: cough, congestion/ l eye irritation Details: ROB DWYER, is a 44 M who presents to the office today for HPI: Patient presents today complaining of 1-2 days of congestion, sore throat, ear congestion, and bodyaches. Denies any fevers. Notes that his did test positive for influenza A about a week ago. ROS: As noted in HPI Physical Exam: VITALS: Reviewed. GEN: Healthy appearing, well-developed, NAD. PSYCH: AOx3. Normal memory, mood, and affect. HEENT -Eyes: -No discharge or redness; -Ears: TMs normal bilaterally -Mouth and throat: Moist mucous membranes. No pharyngeal swelling or exudate NECK: CV: Regular rate and rhythm LUNGS: Normal respiratory effort. Lungs clear bilaterally. SKIN: Warm, well perfused. No skin rashes or abnormal lesions noted. MSK: Normal gait. NEURO: Ambulating with no limitations. Normal muscle strength and tone. No focal deficits. Coding Level of Care Code Off vis,est,level 3 Diagnoses Viral illness B34.9 Assessment and Plan Assessment and Plan (1) Viral illness: Status: Acute Plan: Patient tested negative for flu and COVID. Lung sounds clear concern for pneumonia is minimal. Discussed with patient that symptoms are most likely viral in origin and recommended [id number] treatments as needed for symptomatic relief. Will follow-up with PCP if symptoms not improving. 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 Signature: Date (if applicable) CC: Normal [facility] Urgent Care Visit Reporton 1 06-10-2023 Urgent Care Visit Report [facility] [address], [address] [place] [address] OFFICE VISIT Date of Service: 04/10/24 MR#: [id number] Acct: [id number] Name: ROB DWYER Rep #: [id number] : 1980 Provider: SHON Villalobos Age/Sex: 44/M Location: [facility] Status: Signed Intake Vital Signs 03/20/22 17:39 04/10/24 09:31 Height 6 ft 6 in BP 124/78 H Blood Pressure Location Lt brachial Position Sitting Respiration 14 Pulse 71 Pulse Source NIBP Temp 98.0 F Temp Source Oral Pulse Oximetry (%) 97 Oxygen Delivery Method room air Intake Visit Reasons: COUGH/CONGESTION/L EYE COMPLAINT Chief Complaint: cough, congestion/ l eye irritation 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 Barrel 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 Required: No Is patient in pain?: No Allergies No Known Allergies Allergy (Verified 04/10/24 09:32) Have you fallen in the past year?: No Nurse's Note: cough, congestion, left eye irritation, using eye drops prescribed by telehealth stated is getting some relief, no fever PFSH Medical History High cholesterol History of fibula fracture History of hand fracture History of seasonal allergies Surgical History H/O hand surgery History of vasectomy History of wisdom tooth extraction Family History Grandfather Colon cancer Brother Depression Father High cholesterol Grandmother Skin cancer Social History Smoking Status: Never smoker alcohol intake: never substance use type: does not use what type of physical activity do you participate in: none HPI HPI Chief Complaint: cough, congestion/ l eye irritation Details: ROB DWYER, is a 44 M who presents to the office today for [facility] evaluation at [facility] for approximately 1-week history of progressively worsening forehead and facial pressure/congestion with purulent postnasal drip/cough and bilateral ear pressure. No complaints of fever, chills, myalgias, fatigue, runny nose, or nausea/vomiting/diarr hea. No complaints of chest pain/shortness of breath/dyspnea on exertion. Spouse with similar complaints. Also diagnosed with left eye conjunctivitis by telehealth yesterday at which time he was prescribed ofloxacin drops which she notes is improving his symptoms; he described no vision changes or deep eye globe pain upon questioning.. No other associated symptoms and no other alleviating/aggravati ng factors. ROS Const Constitutional: No other (as above) Exam Const General: cooperative, healthy appearing and no acute distress Nutritional Appearance: average body habitus Orientation: alert, awake and oriented x3 [facility] Head: normal to inspection Ears: hearing grossly normal bilaterally, external ears normal, TM's normal bilaterally and EAC's normal Nose: external nose normal, nares normal, septum normal and no nasal discharge Face and sinus: normal facial exam, frontal and maxillary sinuses tender (with bilateral maxillary fullness to palpation) and face symmetric Mouth: oral mucosae normal, lip normal, tongue normal and oropharynx normal Throat: posterior oropharynx normal, tonsils normal, uvula midline and postnasal drainage (Purulent) Eyes General: appearance normal, both eyes and all related structures (except OS conjunctival trace erythema without exudate; negative limbus) Neck Neck: normal visual inspection, full ROM, no meningeal signs, supple and lymphadenopathy (Bilateral anterior cervical lymph node swelling/tender to palpation) Neck mass: No Thyroid: thyroid normal Chest Chest palpation inspection: normal inspection of the chest Resp Effort Inspection: normal respiratory effort and able to speak in complete sentences Auscultation: Bilateral: Clear to Auscultation Cardio Palpation: normal PMI Rate: regular rate Rhythm: regular rhythm Heart Sounds: S1 normal, S2 normal, no gallops, no murmurs and no rubs Pulses: radial pulses present GI Inspection: normal to inspection Skin General: no rashes or lesions noted Neuro General: patient alert, patient awake and patient oriented x3 Cognition: normal cognition Speech: speech normal Psych Appearance: grossly normal Mental Status: mental status grossly normal Mood: congruent mood Affect: normal affect Speech and Movement: speech and movement normal Attitude: cooperative Diagnoses Acute sinusitis, unspecified J01.90 - Left eye conjunctivitis previously treated by telehealth Assessment and Plan Assessment and Plan (1) Acute maxillary sinusitis, unspecified: Status: Acute Plan: Amoxicillin as prescribed today. Continue compliance with ofloxacin ophthalmic drops as prescribed by telehealth yesterday. Supportive measur (more content not included)... Normal [facility] Basophil percentageOrdered B y: Cyrus Quinn on 07-27-2023 Chloride [Moles/Vol] 108 mmol/L 98-107 [facility] Cholesterol [Mass/Vol] 131 mg/dL <200 [facility] Comment on above: <200 mg/dL Desirable 200-240 mg/dL Borderline >240 mg/dL High Risk Glucose [Mass/Vol] 115 mg/dL 74-106 [facility] Comment on above: Fasting Glucose resu lt from 100 to 125 mg/dL suggests IMPAIRED HOMEOSTASIS per A.D.A. criteria. Potassium [Moles/Vol] 3.9 mmol/L 3.5-5.1 [facility] Sodium [Moles/Vol] 142 mmol/L 136-145 [facility] Triglyceride [Mass/Vol] 54 mg/dL <199 [facility] Comment on above: The drugs N-Acetylcy steine and Metamizole may falsely depress this assay.Serum Triglycerides Reference Interval Normal <150 mg/dL Borderline high 150 - 199 mg/dL High 200 - 499 mg/dL Very High > or = 500 mg/dL Laboratory - Chemistry and C hemistry - challengeOrdered By: Cyrus Quinn on 07-27-2023 Cholesterol in HDL [Mass/Vol] 50 mg/dL >40 [facility] Comment on above: The drugs N-Acetylcy steine and Metamizole may falsely depress this assay. Reference Range HDL <40 mg/dL Low HDL Cholesterol HDL >or= 60 mg/dL High HDL Cholesterol Cholesterol in LDL [Mass/Vol] 70 mg/dL 0-130 [facility] CO2 [Moles/Vol] 29.0 mmol/L 21.0-32.0 [facility] Urea nitrogen/Creatinine [Mass ratio] 19.7 mg/mg 10-20 [facility] No Panel InformationOrdered By: Cyrus Quinn on 07-27-2023 Estimated GFR (MDRD) Amer 115 mL/min >60 [facility] Comment on above: GFR Calc Estimated GFR (MDRD) Non-Af Amer 95 mL/min >60 [facility] Comment on above: Non- GFR Calc VLDL Cholesterol 11 mg/dL 5-40 [facility] Serum or plasma calcium lottie urement (mass/volume)Ordered By: Cyrus Quinn on 07-27-2023 Calcium [Mass/Vol] 8.9 mg/dL 8.5-10.1 [facility] Serum or plasma creatinine m easurement (mass/volume)Ordered By: Cyrus Quinn on 07-27-2023 Creatinine [Mass/Vol] 0.91 mg/dL 0.70-1.30 [facility] Comment on above: The validity of the calculated GFR & GFRAA in patients over 70 years has not been determined. Clinical correlation is essential. Serum or plasma urea nitroge n measurement (mass/volume)Ordered By: Cyrus Quinn on 07-27-2023 Urea nitrogen [Mass/Vol] 18 mg/dL 7-18 [facility] Thin prep Papanicolaou smear with manual screeningOrdered By: Cyrus Quinn on 07-27-2023 Thin prep Papanicolaou smear with manual screening 5 5-15 [facility] Whole blood hemoglobin A1c/t otal hemoglobin ratio (mass fraction)Ordered By: Cyrus Quinn on 07-27-2023 HbA1c (Bld) [Mass fraction] 5.9 % 3.8-5.6 [facility] Comment on above: Normal < 5.7 % Predi abetic 5.7 - 6.4 % Diabetic >or= 6.5 % Please note range changes. Basophil percentageOrdered B y: Cyrus Quinn on 01-12-2023 Bilirubin [Mass/Vol] 0.30 mg/dL 0.20-1.00 [facility] Comment on above: For patients on eltr ombopag therapy, use of Dimension [place] TBIL is not recommended. Chloride [Moles/Vol] 108 mmol/L 98-107 [facility] Cholesterol [Mass/Vol] 141 mg/dL <200 [facility] Comment on above: <200 mg/dL Desirable 200-240 mg/dL Borderline >240 mg/dL High Risk Glucose [Mass/Vol] 113 mg/dL 74-106 [facility] Comment on above: Fasting Glucose resu lt from 100 to 125 mg/dL suggests IMPAIRED HOMEOSTASIS per A.D.A. criteria. Potassium [Moles/Vol] 3.7 mmol/L 3.5-5.1 [facility] Protein [Mass/Vol] 7.1 g/dL 6.4-8.2 [facility] Sodium [Moles/Vol] 142 mmol/L 136-145 [facility] Triglyceride [Mass/Vol] 60 mg/dL <199 [facility] Comment on above: The drugs N-Acetylcy steine and Metamizole may falsely depress this assay.Serum Triglycerides Reference Interval Normal <150 mg/dL Borderline high 150 - 199 mg/dL High 200 - 499 mg/dL Very High > or = 500 mg/dL Laboratory - Chemistry and C hemistry - challengeOrdered By: Cyrus Quinn on 01-12-2023 ALP [Catalytic activity/Vol] 69 U/L 45-117 [facility] ALT [Catalytic activity/Vol] 47 U/L 16-61 [facility] CO2 [Moles/Vol] 30.0 mmol/L 21.0-32.0 [facility] Globulin (S) [Mass/Vol] 3.3 g/dL 2.2-4.2 [facility] Urea nitrogen/Creatinine [Mass ratio] 20.8 mg/mg 10-20 [facility] No Panel InformationOrdered By: Cyrus Quinn on 01-12-2023 Estimated GFR (MDRD) Amer 103 mL/min >60 [facility] Comment on above: GFR Calc Estimated GFR (MDRD) Non-Af Amer 85 mL/min >60 [facility] Comment on above: Non- GFR Calc Serum or plasma albumin lottie urement (mass/volume)Ordered By: Cyrus Quinn on 01-12-2023 Albumin [Mass/Vol] 3.8 g/dL 3.2-5.0 [facility] Serum or plasma albumin/glob ulin mass ratioOrdered By: Cyrus Quinn on 01-12-2023 Albumin/Globulin [Mass ratio] 1.2 {ratio} 0.9-2.4 [facility] Serum or plasma calcium lottie urement (mass/volume)Ordered By: Cyrus Quinn on 01-12-2023 Calcium [Mass/Vol] 9.0 mg/dL 8.5-10.1 [facility] Serum or plasma cholesterol in HDL measurement (mass/volume)Ordered By: Cyrus Quinn on 01-12-2023 Cholesterol in HDL [Mass/Vol] 44 mg/dL >40 [facility] Comment on above: The drugs N-Acetylcy steine and Metamizole may falsely depress this assay. Reference Range HDL <40 mg/dL Low HDL Cholesterol HDL >or= 60 mg/dL High HDL Cholesterol Serum or plasma cholesterol in VLDL measurement (mass/volume)Ordered By: Cyrus Quinn on 01-12-2023 Cholesterol in VLDL [Mass/Vol] 12 mg/dL 5-40 [facility] Serum or plasma creatinine m easurement (mass/volume)Ordered By: Cyrus Quinn on 01-12-2023 Creatinine [Mass/Vol] 1.01 mg/dL 0.70-1.30 [facility] Comment on above: The validity of the calculated GFR & GFRAA in patients over 70 years has not been determined. Clinical correlation is essential. Serum or plasma low density lipoprotein (LDL) cholesterol measurement (mass/volume)Ordered By: Cyrus Quinn on 01-12-2023 Cholesterol in LDL [Mass/Vol] 85 mg/dL 0-130 [facility] Serum or plasma urea nitroge n measurement (mass/volume)Ordered By: Cyrus Quinn on 01-12-2023 Urea nitrogen [Mass/Vol] 21 mg/dL 7-18 [facility] Thin prep Papanicolaou smear with manual screeningOrdered By: Cyrus Quinn on 01-12-2023 Thin prep Papanicolaou smear with manual screening 20 U/L 15-37 [facility] Thin prep Papanicolaou smear with manual screening 4 5-15 [facility] Basophil percentageon 2021 Bilirubin [Mass/Vol] 0.30 mg/dL 0.20-1.00 [facility] Work Phone: Comment on above: For patients on eltr ombopag therapy, use of Dimension [place] TBIL is not recommended. Chloride [Moles/Vol] 106 mmol/L 98-107 [facility] Work Phone: Cholesterol [Mass/Vol] 177 mg/dL <200 [facility] Work Phone: Comment on above: <200 mg/dL Desirable 200-240 mg/dL Borderline >240 mg/dL High Risk Glucose [Mass/Vol] 107 mg/dL 74-106 [facility] Work Phone: Comment on above: Fasting Glucose resu lt from 100 to 125 mg/dL suggests IMPAIRED HOMEOSTASIS per A.D.A. criteria. Potassium [Moles/Vol] 3.8 mmol/L 3.5-5.1 [facility] Work Phone: Protein [Mass/Vol] 7.2 g/dL 6.4-8.2 [facility] Work Phone: Sodium [Moles/Vol] 141 mmol/L 136-145 [facility] Work Phone: Triglyceride [Mass/Vol] 80 mg/dL <199 [facility] Work Phone: Comment on above: The drugs N-Acetylcy steine and Metamizole may falsely depress this assay.Serum Triglycerides Reference Interval Normal <150 mg/dL Borderline high 150 - 199 mg/dL High 200 - 499 mg/dL Very High > or = 500 mg/dL Laboratory - Chemistry and C hemistry - challengeon 02-26-2022 ALP [Catalytic activity/Vol] 63 U/L 45-117 [facility] Work Phone: ALT [Catalytic activity/Vol] 50 U/L 16-61 [facility] Work Phone: CO2 [Moles/Vol] 27.0 mmol/L 21.0-32.0 [facility] Work Phone: Globulin (S) [Mass/Vol] 3.5 g/dL 2.2-4.2 [facility] Work Phone: Urea nitrogen/Creatinine [Mass ratio] 18.0 mg/mg 10-20 [facility] Work Phone: No Panel Informationon 02-26 Estimated GFR (MDRD) Amer 111 mL/min >60 [facility] Work Phone: Comment on above: GFR Calc Estimated GFR (MDRD) Non-Af Amer 92 mL/min >60 [facility] Work Phone: Comment on above: Non- GFR Calc Serum or plasma albumin lottie urement (mass/volume)on 02-26-2022 Albumin [Mass/Vol] 3.7 g/dL 3.2-5.0 [facility] Work Phone: Serum or plasma albumin/glob ulin mass ratioon 02-26-2022 Albumin/Globulin [Mass ratio] 1.1 {ratio} 0.9-2.4 [facility] Work Phone: Serum or plasma calcium lottie urement (mass/volume)on 02-26-2022 Calcium [Mass/Vol] 9.0 mg/dL 8.5-10.1 [facility] Work Phone: Serum or plasma cholesterol in HDL measurement (mass/volume)on 02-26-2022 Cholesterol in HDL [Mass/Vol] 49 mg/dL >40 [facility] Work Phone: Comment on above: The drugs N-Acetylcy steine and Metamizole may falsely depress this assay. Reference Range HDL <40 mg/dL Low HDL Cholesterol HDL >or= 60 mg/dL High HDL Cholesterol Serum or plasma cholesterol in VLDL measurement (mass/volume)on 02-26-2022 Cholesterol in VLDL [Mass/Vol] 16 mg/dL 5-40 [facility] Work Phone: Serum or plasma creatinine m easurement (mass/volume)on 02-26-2022 Creatinine [Mass/Vol] 0.95 mg/dL 0.70-1.30 [facility] Work Phone: Comment on above: The validity of the calculated GFR & GFRAA in patients over 70 years has not been determined. Clinical correlation is essential. Serum or plasma low density lipoprotein (LDL) cholesterol measurement (mass/volume)on 02-26-2022 Cholesterol in LDL [Mass/Vol] 112 mg/dL 0-130 [facility] Work Phone: Serum or plasma urea nitroge n measurement (mass/volume)on 02-26-2022 Urea nitrogen [Mass/Vol] 17 mg/dL 7-18 [facility] Work Phone: Thin prep Papanicolaou smear with manual screeningon 02-26-2022 Thin prep Papanicolaou smear with manual screening 13 U/L 15-37 [facility] Work Phone: Thin prep Papanicolaou smear with manual screening 8 5-15 [facility] Work Phone: SENAOVon 01-19-2022 CNOV Office Visit (UCWSTR ) ROB DWYER ([id number]) 1980 M Date Time Provider Department 01/19/22 10:15 AM MARIA A PAEZ [facility] During your visit today, we recorded the following information about you: Temperature Pulse Respiration Blood pressure 97.1 degrees 70/minute 21/minute 140/78 Weight 120.6 kg Maria A Paez APRN.DECKHAND 01/19/2022 10:25 AM Signed CC: Patient presents with: Sinus Problem: X 2 weeks HPI: Rob Dwyer is a 41 year old male who [...] bronchitis, bronchiectasis or COPD: No Smoker: No Seasonal/environmenta l allergies: No The ROS is otherwise negative. [...] Take 10 mg by mouth as needed. amoxicillin-clavulani c acid (AUGMENTIN) 875-125 mg per tablet Take [...] Patient agreeable to treatment plan. Maria A Paez APRN.CNP Referring Provider: SELF [200] Allergies As of Date: 01/19/2022 Noted Allergy Reaction SEASONAL ALLERGIES 03/10/2016 14 - Other: See Comments Comments: Dogs, cats, ragweed causes sneezing Date Reviewed: 01/19/2022 Reviewed by: Leydi Bedolla MA - Fully Assessed Reason for Visit: Sinus Problem [99] Cmt: X 2 weeks Primary Visit Diagnosis:Acute cough [R05.1] Other Visit Diagnosis:Sinus pressure [J34.89] Order(s):amoxicillin- clavulanic acid (AUGMENTIN) 875-125 mg per tabletTake 1 tablet by mouth twice daily for 5 days.Disp: 10 tabletRfl: 0 Prescriptions as of 01/19/2022 - amoxicillin-clavulani c acid (AUGMENTIN) 875-125 mg per tablet Take 1 tablet by mouth twice daily for 5 days. - fluticasone (FLONASE) 50 mcg/actuation nasal spray Use 2 Sprays in each nostril once daily. Rinse mouth after use. - aspirin, enteric coated (ASPIRIN, ENTERIC COATED) 81 mg EC tablet Take 81 mg by mouth once daily. - rosuvastatin (CRESTOR) 5 mg tablet Take 5 mg by mouth daily at bedtime. - Coenzyme Q10 20 (more content not included)... Normal [facility] CNOVon 07-27-2021 CNOV Office Visit (UCWSTR ) IZAIAHCarlotaROB ([id number]) 1980 M Date Time Provider Department 07/27/21 11:00 AM BRITANY RICO FITZ During your visit today, we recorded the following information about you: Temperature Pulse Respiration Blood pressure 97.6 degrees 66/minute 16/minute 112/78 Weight 116.4 kg Britany Rico APRN.CNP 07/27/2021 11:29 AM Signed Subjective HPI HPI Rob Dwyer is a 41 year old male who [...] daily for 10 days. May transfer to [facility] if less expensive. FAMILY HISTORY Problem Relation [...] 100 MG TABLET Agrees to plan Declines avs Britany Rico APRN.ARSEN Rico APRN.ARSEN 07/27/2021 11:28 AM Signed ASSESSMENT/PLAN: 1. Sinobronchitis - ICD9: 473.9, 490, [...] SPRAY,SUSPENSION - DOXYCYCLINE MONOHYDRATE 100 MG TABLET Referring Provider: SELF [200] Allergies As of Date: 07/27/2021 Noted Allergy Reaction SEASONAL ALLERGIES 03/10/2016 14 - Other: See Comments Comments: Dogs, cats, ragweed causes sneezing Date Reviewed: 07/27/2021 Reviewed by: Britany Rico APRN.DECKHAND - Fully Assessed Reason for Visit: Cough [28] Cmt: cough, congestion and St x 5 days Primary Visit Diagnosis:Sinobronchi tis [J32.9, J40] Order(s):predniSONE (DELTASONE) 20 mg tabletTake 2 tablets by mouth once daily for 5 days.Disp: 10 tabletRfl: 0 fl (more content not included)... Normal [facility] CNOVon 06-09-2021 CNOV Office Visit (DECLAN ) NELA DWYERAN ([id number]) 1980 M Date Time Provider Department 06/09/21 12:45 PM CARLA KYLE During your visit today, we recorded the following information about you: Pulse Blood pressure Weight Height 69/minute 124/76 116.3 kg 1.981 m Carla Kyle DO 06/09/2021 3:23 PM [facility] [place] Fela Edwards Department of Cardiovascular Medicine SECTION [...] you been evaluated by a physician? Yes, [facility] vein center Have you had an ultrasound? 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 [facility] Telephone (ONELIARukhsana) ROB DWYER ([id number]) 1980 M Date Time Provider Department 05/28/21 CARLA KYLE During your visit today, we recorded the following information about you: [place] Arce [facility] [place]/28/2021 12:38 PM Signed Received faxed outside records from [facility]. Filed in Dr. Klye's office for 06/09 appointment. Janet Arce Allergies As of Date: 05/28/2021 Noted Allergy Reaction SEASONAL ALLERGIES 03/10/2016 14 - Other: See Comments Comments: Dogs, cats, ragweed causes sneezing Date Reviewed: 09/19/2018 Reviewed by: Kira Esparza LPN - Fully Assessed Reason for Visit: Received Outside Medical Records [[id number]] Prescriptions as of 05/28/2021 - fluticasone (FLONASE) 50 mcg/actuation nasal spray Use 2 Sprays in each nostril once daily. Rinse mouth after use. - trimethoprim-polymyxi n eye drops (POLYTRIM) ophthalmic solution Use 1 Drop in both eyes every 4 hours. - BEE POLLEN ORAL Take 1 teaspoonful by mouth once daily. - FLAXSEED OIL ORAL Take 1 teaspoonful by mouth once daily. - multivitamin tablet Take 1 tablet by mouth once daily. - loratadine (CLARITIN) 10 mg ORAL tablet as necessary Problem List As Of Date 05/28/2021 Noted Resolved Closed displaced fracture of base of fifth meta*03/10/2016 Encounter Status:Closed by JANET RODRIGUEZ on 05/28/21 [facility] Encounters Encounter Date Encounter Type Care Provider Facility Start: 12-25-2024 ambulatory Sekou Ma lity:[facility] Start: 07-19-2024 End: 07-19-2024 ambulatory Ochoa Gill Facility:[facility] Start: 04-10-2024 End: 04-10-2024 ambulatory Uri MENENDEZ Facility:[facility] Start: 07-27-2023 End: 07-27-2023 ambulatory [facility] Work Phone: Start: 07-27-2023 End: 07-27-2023 Patient encounter procedure [facility] Work Phone: Start: 01-12-2023 End: 01-12-2023 ambulatory [facility] Work Phone: Start: 01-12-2023 End: 01-12-2023 Patient encounter procedure [facility] Work Phone: Start: 09-11-2022 End: 09-11-2022 ambulatory [facility] Work Phone: Start: 09-11-2022 End: 09-11-2022 Patient encounter procedure [facility], [facility] Start: 02-26-2022 End: 02-26-[address] Cyrus Quinn Work Phone: [facility] Work Phone: Start: 02-26-2022 End: 02-26-[address] Cyrus Quinn Work Phone: [facility] Start: 02-24-2022 End: 02-24-[address] Cyrus Quinn Work Phone: [facility] Start: 02-03-2022 End: 02-03-[address] Cyrus Quinn Work Phone: [facility] Start: 01-20-2022 End: 01-20-[address] Cyrus Quinn Work Phone: [facility] Start: 01-12-2022 End: 01-12-[address] Cyrus Quinn Work Phone: [facility] Start: 01-05-2022 End: 01-05-[address] Cyrus Quinn Work Phone: [facility] Start: 12-30-2021 End: 12-30-[address] Cyrus Quinn Work Phone: [facility] Start: 12-23-2021 End: 12-23-[address] Cyrus Quinn Work Phone: [facility] Start: 12-16-2021 End: 12-16-[address] Cyrus Quinn Work Phone: [facility] Start: 12-09-2021 End: 12-09-[address] Cyrus Quinn Work Phone: [facility] Start: 12-03-2021 End: 12-03-[address] Cyrus Quinn Work Phone: [facility] Start: 11-27-2021 End: 11-27-[address] Cyrus Quinn Work Phone: [facility] Procedures Date Procedure Procedure Detail Performing Clinician Start: 09-11-2022 Pelvis X-ray Payers Date Payer Category Payer Self-pay [id number] 2024 Unknown [id number] Unknown NORM [id number] Unknown [id number] Unknown [facility] [id number] Unknown [facility] [id number] Unknown [id number] Unknown [id number] Unknown [id number] Social History Date Type Detail Facility Start: 02-24-2022 End: 04-29-2022 Tobacco smoking status NHIS Unknown if ever smoked [facility] Start: 1980 Sex Assigned At Male W [facility] Goals Date Patient Goal Desired Activity /State Progress note 01-19-2022 Note Date & Type Note Facility 01-19-2022 Note HNO ID: [id number] Author: Maria A Paez APRN.DECKHAND Service: ? Author Type: Nurse Practitioner Type: Progress Notes Filed: 01/19/2022 10:25 AM Note Text: CC: Patient presents with: Sinus Problem: X 2 weeks HPI: Rob Dwyer is a 41 year old male who [...] METACARPAL FX EACH BONE Right 03/20/2016 Right [facility] closed reduction AND percutaneous pinning ALLERGIES Seasonal [...] Patient agreeable to treatment plan. Maria A Paez APRN.DECKHAND [facility] Progress note 07-27-2021 Note Date & Type Note Facility 07-27-2021 Note HNO ID: [id number] Author: Britany Rico APRN.DECKHAND Service: ? Author Type: Nurse Practitioner Type: Progress Notes Filed: 07/27/2021 11:29 AM Note Text: Subjective HPI HPI Rob Dwyer is a 41 year old male who [...] daily for 10 days. May transfer to [facility] if less expensive. FAMILY HISTORY Problem Relation [...] 100 MG TABLET Agrees to plan Declines avs Britany Rico APRN.ARSEN [facility] Progress note 06-09-2021 Note Date & Type Note Facility 06-09-2021 Note HNO ID: [id number] Author: Carla Kyle, DO Service: ? Author Type: Physician Type: Progress Notes Filed: 06/09/2021 3:23 PM Note Text: [facility] [place] Fela Edwards Department of Cardiovascular Medicine SECTION [...] you been evaluated by a physician? Yes, [facility] vein center Have you had an ultrasound? 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 His vein provider recommended right leg intervention with Variclose. He was also started on knee high 20-30mmHg compression stockings. He elected to come to [facility] for a second opinion. In the last [...] extremities - No (more content not included)... [facility] Evaluation note Note Date & Type Note Facility Evaluation note Diagnosis Onset Date Back pain acute Segmental and somatic dysfun ction of lumbar region acute Segmental and somatic dysfun ction of pelvic region acute Segmental and somatic dysfun ction of thoracic region acute Back pain acute Segmental and somatic dysfun ction of lumbar region acute Segmental and somatic dysfun ction of pelvic region acute Segmental and somatic dysfun ction of thoracic region acute Back pain acute Segmental and somatic dysfun ction of lumbar region acute Segmental and somatic dysfun ction of pelvic region acute Segmental and somatic dysfun ction of thoracic region acute Back pain acute Segmental and somatic dysfun ction of lumbar region acute Segmental and somatic dysfun ction of pelvic region acute Segmental and somatic dysfun ction of thoracic region acute Back pain acute Segmental and somatic dysfun ction of lumbar region acute Segmental and somatic dysfun ction of pelvic region acute Segmental and somatic dysfun ction of thoracic region acute Back pain acute Segmental and somatic dysfun ction of lumbar region acute Segmental and somatic dysfun ction of pelvic region acute Segmental and somatic dysfun ction of thoracic region acute Back pain acute Segmental and somatic dysfun ction of lumbar region acute Segmental and somatic dysfun ction of pelvic region acute Segmental and somatic dysfun ction of thoracic region acute Back pain acute Segmental and somatic dysfun ction of lumbar region acute Segmental and somatic dysfun ction of pelvic region acute Segmental and somatic dysfun ction of thoracic region acute Back pain acute Segmental and somatic dysfun ction of lumbar region acute Segmental and somatic dysfun ction of pelvic region acute Segmental and somatic dysfun ction of thoracic region acute Back pain acute Segmental and somatic dysfun ction of lumbar region acute Segmental and somatic dysfun ction of pelvic region acute Segmental and somatic dysfun ction of thoracic region acute Back pain acute Segmental and somatic dysfun ction of lumbar region acute Segmental and somatic dysfun ction of pelvic region acute Segmental and somatic dysfun ction of thoracic region [facility] Work Phone: Evaluation note Note Date & Type Note Facility Evaluation note No assessment information availa [facility] Work Phone: Summary Purpose Family History No Family History Records Found Relationship Condition Age at Onset Recorded Date/T jack grandfather Malignant neoplasm of colon Unknown brother Depression Unknown father High blood cholesterol Unknown grandmother Malignant neoplasm of skin Unknown Advance Directives No Advanced Directives Records FoundNo Advanced Directives Records Found Chief Complaint and Reason for Visit Chief Complaint Back pain Back pain Back pain Back pain Back pain Back pain Back pain Back pain Back pain BACK PAIN Back pain Reason for Visit Back pain Segmental and somatic dysfunction of lumbar region Segmental and somatic dysfunction of pelvic region Segmental and somatic dysfunction of thoracic region Back pain Segmental and somatic dysfunction of lumbar region Segmental and somatic dysfunction of pelvic region Segmental and somatic dysfunction of thoracic region Back pain Segmental and somatic dysfunction of lumbar region Segmental and somatic dysfunction of pelvic region Segmental and somatic dysfunction of thoracic region Back pain Segmental and somatic dysfunction of lumbar region Segmental and somatic dysfunction of pelvic region Segmental and somatic dysfunction of thoracic region Back pain Segmental and somatic dysfunction of lumbar region Segmental and somatic dysfunction of pelvic region Segmental and somatic dysfunction of thoracic region Back pain Segmental and somatic dysfunction of lumbar region Segmental and somatic dysfunction of pelvic region Segmental and somatic dysfunction of thoracic region Back pain Segmental and somatic dysfunction of lumbar region Segmental and somatic dysfunction of pelvic region Segmental and somatic dysfunction of thoracic region Back pain Segmental and somatic dysfunction of lumbar region Segmental and somatic dysfunction of pelvic region Segmental and somatic dysfunction of thoracic region Back pain Segmental and somatic dysfunction of lumbar region Segmental and somatic dysfunction of pelvic region Segmental and somatic dysfunction of thoracic region Back pain Segmental and somatic dysfunction of lumbar region Segmental and somatic dysfunction of pelvic region Segmental and somatic dysfunction of thoracic region Back pain Segmental and somatic dysfunction of lumbar region Segmental and somatic dysfunction of pelvic region Segmental and somatic dysfunction of thoracic region Chief Complaint EORDER Additional Source Comments (unrecognized sect ion and content) No Status Records FoundNo Status Records Found INFORMATION SOURCE (unrecogn ized section and content) DATE CREATED AUTHOR 01/19/[address] [facility] DATE CREATED AUTHOR AUTHOR'S ORGANIZ ATION 12/08/2024 [facility] Care Teams (unrecognized sec tion and content) Team Status: Active Member Role Status Dates Dr. Cyrus Quinn MD Family Provider Active Dr. Cyrus Quinn MD Primary Care Provider Active Team Status: Inactive Member Role Status Dates Dr. Cyrus Quinn MD Primary Care Provider Active SHANI PAEZ Attending Provider Active Team Status: Inactive Member Role Status Dates Dr. Cyrus Quinn MD Primary Care Provi lona, Attending Provider, Referring Provider Active FOR RECORDS PERTAINING TO PATIENTS WHO ARE [...] BE BASED ON THE PRIMARY CLINICAL RECORDS. [email or web address] provides no warranty or guarantee of the accuracy or completeness of information in this document.
[2024-12-09 10:03] LABS: Anion Gap 11 (5-15); BUN 22 mg/dL (4-19); BUN/Creat Ratio 22.9 RATIO (10-20); Calcium,Total 9.4 mg/dL (7.6-11.0); Carbon Dioxide 24.3 mmol/L (21.0-32.0); Chloride 104 mmol/L (98-108); Cholesterol 177 mg/dL (<=200); Glucose 108 mg/dL (70-99); Low Density Lipoprotein Calc. 109 mg/dL; Potassium 4.1 mmol/L (3.3-5.1); Triglycerides 60 mg/dL; Very Low Density Lipoprotein 12 mg/dL (5-40); cholesterol:hdl ratio screen 3.18
== END | disposition home or self-care (01) ==
LOC: LAB 07:31
PROVIDERS: PCP Family Medicine; Referring Provider Family Medicine; Visit Provider Family Medicine
DX: Z00.00 Encounter for general adult medical examination without abnormal findings (principal)
CPT/HCPCS: 36415; 80048; 80061

== ENCOUNTER 2024-12-25 11:41 | Day surgery (SDC) | payer OTHER, SELFPAY ==
[2024-12-25] VITALS (7 sets, daily range): BP systolic 106–116; BP diastolic 62–76; PULSE 61–77; RESP 14–16; TEMP 36.5–36.9; O2SAT 98–100; BMI 30.5
[2024-12-25] MEDS: Lactated Ringers 1,000 ML 15 ML IV (12:23)
--- NOTE | 2024-12-25 12:23 | PRE.ANES_ITS ---
ASA Classification* ASA Classification ASA Classification: 2 Assessment & Plan Anesthesia* Anesthesia Assessment Anesthesia Assessment: Discussed sedation and/or anesthesia options, risks, benefits, and alternatives with patient/parents/legal guardian/POA. Questions invited. The patient/parents/legal guardian/POA seems to understand and agrees to proceed with anesthesia plan. Reviewed the physical assessment, medical history, allergy history and patient home medications list prior to surgery/procedure/anesthetic and documented any changes. Performed airway and anesthesia risk assessments. Anesthesia Type Anesthesia Type: MAC History Source History Obtained from:: Patient and Chart Anesthesia Focused Assessment* Temperature: 97.7 F Pulse Rate: 77 Blood Pressure: 116/76 Respiratory Rate: 14 Pulse Ox: 100 Oxygen Delivery Method: Room Air Airway Assessment Mouth opens: >3 cm Mallampati Score: II Teeth Condition: Intact Neck Range of motion (ROM): Full ROM Labs Anesthesia Preop lab: CBC WBC 6.6 K/mm3 (4.4-11.0) 01/30/20 09:44 01/30/20 RBC 5.34 M/mm3 (4.6-6.2) 01/30/20 09:44 01/30/20 Hgb 15.6 g/dL (13.0-16.5) 01/30/20 09:44 01/30/20 Hct 48.5 % (40-54) 01/30/20 09:44 01/30/20 Plt Count 221 K/mm3 (150-450) 01/30/20 09:44 01/30/20 CHEMISTRY Potassium 4.1 mmol/L (3.3-5.1) 12/09/24 07:39 12/09/24 Sodium 140 mmol/L (133-145) 12/09/24 07:39 12/09/24 BUN 22 mg/dL (4-19) H 12/09/24 07:39 12/09/24 Creatinine 0.98 mg/dL (0.70-1.20) 12/09/24 07:39 12/09/24 Glucose 108 mg/dL (70-99) H 12/09/24 07:39 12/09/24 TSH 1.16 uIU/mL (0.358-3.74) 01/30/20 09:44 COAG Pre-Assessment Diagnosis/Proposed Procedure Planned Operative Procedure(s): ) Colonoscopy - Open Access Anesthesia History Anesthesia History - tapper helper: Anesthesia History - tapper helper Hx Hospitalization No 12/21/24 09:19 Any Problems With Anesthesia No 12/21/24 09:19 Cholinesterase deficiency No 12/21/24 09:19 You/Your Family Experience No 12/21/24 09:19 fever (hyperthermia) with Relationship Recent Exposure to Contagious No 12/25/24 12:06 Disease Does patient have nerve No 12/21/24 09:19 stimulator Patient instructed to have device shut off --Does patient have Pacemaker No 12/25/24 12:06 or ICD? When Was Last Pacemaker Check QUESTION #4 FULL TEXT: You/Your Family Experience fever (hyperthermia) with Anesthesia Any additional information?: No Last Oral Intake Last Oral intake: Last Oral Intake NPO since 08:30 12/25/24 12:06 Meds taken in AM with sips of No 12/25/24 12:06 water? Meds patient instructed to take am of surgery Any additional information?: No PONV PONV - tapper helper: PONV - tapper helper Female No 12/21/24 09:19 HX of Motion Sickness No 12/21/24 09:19 HX of N/V After Surgery No 12/21/24 09:19 Non-Smoker Yes 12/21/24 09:19 Duration of Surgery greater No 12/21/24 09:19 than 60 minutes Number of Risk Factors 1 12/21/24 09:19 PONV Score Low Risk 12/21/24 09:19 Any additional information?: No Height & Weight Height & Weight: Anesthesia: Height & Weight Height 6 ft 6 in 12/25/24 12:06 Weight: 120 kg 12/25/24 12:06 Body Mass Index (BMI) 30.5 12/25/24 12:06 Respiratory Assessment Respiratory Assessment - tapper helper: Respiratory Tract Infection Hx - tapper helper Hx Respiratory Tract Infection No 12/21/24 09:19 Any additional information?: No STOP Sleep Apnea STOP Sleep Apnea - tapper helper: STOP Sleep Apnea - tapper helper Hx Hypertension No 12/21/24 09:19 Hx Sleep Apnea Yes 12/21/24 09:19 CPAP Yes 12/21/24 09:19 BIPAP No 12/21/24 09:19 Do you snore loudly (louder than talking or can be heard Do you often feel tired/ fatigued/ sleepy during daytime? Has anyone observed you stop breathing during sleep? STOP Results Positive 12/21/24 09:19 QUESTION #5 FULL TEXT : Do you snore loudly (louder than talking or can be heard through closed doors)? 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 Specify any problems Hx of Preganancy in last 3 N/A 12/21/24 09:19 Months Nurse Filling Out Transfusion JZOLLINGE 12/21/24 09:19 & Questions: Date: 12/21/24 12/21/24 09:19 Time: 09:21 12/21/24 09:19 Patient unable to answer at this time (ie. confused, unrespo Any additional information?: No /Reproduction History /Reproductive History - tapper helper: /Reproductive Hx- tapper helper Hx Now No 12/21/24 09:19 Gestational Age (in weeks): EDC: Hx Hx Para Hx Section SAB No 12/21/24 09:19 Any additional information?: No Active Medications Active Medications: Current Medications Generic Name Dose Route Start Last Admin Trade Name Freq PRN Reason Stop Dose Admin Lactated Ringer's 1,000 mls @ 15 mls/hr 12/25/24 12:00 IV .Q48H VICENTE PFSH Medical History Wears glasses Non-smoker CPAP (continuous positive airway pressure) dependence Sleep apnea Viral illness High cholesterol History of hand fracture History of fibula fracture History of seasonal allergies Home Medications ?Medication ?Instructions ?Recorded ?Last Taken ?Type loratadine 10 mg tablet (Claritin) 10 mg PO DAILY PRN allergy symptoms 09/17/20 Unknown History rosuvastatin 5 mg tablet 5 mg PO .QD 09/17/20 Unknown History fluticasone propionate 50 1 spray intranasal DAILY PRN 03/20/22 Unknown History mcg/actuation nasal allergy symptoms spray,suspension (Flonase Allergy Relief) vitamin K2 45 mcg capsule 45 mcg PO DAILY 03/20/22 Unk nown History coenzyme Q10 50 mg capsule 50 mg PO QDAY 07/19/24 Unkn own History meloxicam 15 mg tablet 15 mg PO DAILY 07/19/24 Unkn own History multivitamin (Multiple Vitamins 1 tab PO QAM 07/19/24 Unknown History tablet) Allergy/AdvReac Type Severity Reaction Status Date / Time No Known Allergies Allergy Verified 12/25/24 12:05 Family History Grandfather Colon cancer Brother Depression Father High cholesterol Grandmother Skin cancer Surgical History Hx of discectomy History of wisdom tooth extraction History of vasectomy H/O hand surgery Social History Smoking Status: Never smoker alcohol intake: never substance use type: does not use what type of physical activity do you participate in: none Addt'l Information Additional Findings: Numbness in RLE due to pinched nerve. Patient had microdiscetomy, did not resolve the issue, still has residual numbness. Review of Systems (Anesthesia) ROS Narrative System reviewed and no additional complaints, except as documented.
--- NOTE | 2024-12-25 12:23 | PRE.ANES_ITS ---
ASA Classification* ASA Classification ASA Classification: 2 Assessment & Plan Anesthesia* Anesthesia Assessment Anesthesia Assessment: Discussed sedation and/or anesthesia options, risks, benefits, and alternatives with patient/parents/legal guardian/POA. Questions invited. The patient/parents/legal guardian/POA seems to understand and agrees to proceed with anesthesia plan. Reviewed the physical assessment, medical history, allergy history and patient home medications list prior to surgery/procedure/anesthetic and documented any changes. Performed airway and anesthesia risk assessments. Anesthesia Type Anesthesia Type: MAC History Source History Obtained from:: Patient and Chart Anesthesia Focused Assessment* Temperature: 97.7 F Pulse Rate: 77 Blood Pressure: 116/76 Respiratory Rate: 14 Pulse Ox: 100 Oxygen Delivery Method: Room Air Airway Assessment Mouth opens: >3 cm Mallampati Score: II Teeth Condition: Intact Neck Range of motion (ROM): Full ROM Labs Anesthesia Preop lab: CBC WBC 6.6 K/mm3 (4.4-11.0) 01/30/20 09:44 01/30/20 RBC 5.34 M/mm3 (4.6-6.2) 01/30/20 09:44 01/30/20 Hgb 15.6 g/dL (13.0-16.5) 01/30/20 09:44 01/30/20 Hct 48.5 % (40-54) 01/30/20 09:44 01/30/20 Plt Count 221 K/mm3 (150-450) 01/30/20 09:44 01/30/20 CHEMISTRY Potassium 4.1 mmol/L (3.3-5.1) 12/09/24 07:39 12/09/24 Sodium 140 mmol/L (133-145) 12/09/24 07:39 12/09/24 BUN 22 mg/dL (4-19) H 12/09/24 07:39 12/09/24 Creatinine 0.98 mg/dL (0.70-1.20) 12/09/24 07:39 12/09/24 Glucose 108 mg/dL (70-99) H 12/09/24 07:39 12/09/24 TSH 1.16 uIU/mL (0.358-3.74) 01/30/20 09:44 COAG Pre-Assessment Diagnosis/Proposed Procedure Planned Operative Procedure(s): ) Colonoscopy - Open Access Anesthesia History 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 When Was Last Pacemaker Check QUESTION #4 FULL TEXT: You/Your Family Experience fever (hyperthermia) with Anesthesia Any additional information?: No Last Oral Intake Last Oral intake: Last Oral Intake NPO since 08:30 12/25/24 12:06 Meds taken in AM with sips of No 12/25/24 12:06 water? Meds patient instructed to take am of surgery Any additional information?: No PONV PONV - architectural draftsman: PONV - architectural draftsman Female No 12/21/24 09:19 HX of Motion Sickness No 12/21/24 09:19 HX of N/V After Surgery No 12/21/24 09:19 Non-Smoker Yes 12/21/24 09:19 Duration of Surgery greater No 12/21/24 09:19 than 60 minutes Number of Risk Factors 1 12/21/24 09:19 PONV Score Low Risk 12/21/24 09:19 Any additional information?: No Height & Weight Height & Weight: Anesthesia: Height & Weight Height 6 ft 6 in 12/25/24 12:06 Weight: 120 kg 12/25/24 12:06 Body Mass Index (BMI) 30.5 12/25/24 12:06 Respiratory Assessment Respiratory Assessment - architectural draftsman: Respiratory Tract Infection Hx - architectural draftsman Hx Respiratory Tract Infection No 12/21/24 09:19 Any additional information?: No STOP Sleep Apnea STOP Sleep Apnea - architectural draftsman: STOP Sleep Apnea - architectural draftsman Hx Hypertension No 12/21/24 09:19 Hx Sleep Apnea Yes 12/21/24 09:19 CPAP Yes 12/21/24 09:19 BIPAP No 12/21/24 09:19 Do you snore loudly (louder than talking or can be heard Do you often feel tired/ fatigued/ sleepy during daytime? Has anyone observed you stop breathing during sleep? STOP Results Positive 12/21/24 09:19 QUESTION #5 FULL TEXT : Do you snore loudly (louder than talking or can be heard through closed doors)? 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 Specify any problems Hx of Preganancy in last 3 N/A 12/21/24 09:19 Months Nurse Filling Out Transfusion JZOLLINGE 12/21/24 09:19 & Questions: Date: 12/21/24 12/21/24 09:19 Time: 09:21 12/21/24 09:19 Patient unable to answer at this time (ie. confused, unrespo Any additional information?: No /Reproduction History /Reproductive History - architectural draftsman: /Reproductive Hx- architectural draftsman Hx Now No 12/21/24 09:19 Gestational Age (in weeks): EDC: Hx Hx Para Hx Section SAB No 12/21/24 09:19 Any additional information?: No Active Medications Active Medications: Current Medications Generic Name Dose Route Start Last Admin Trade Name Freq PRN Reason Stop Dose Admin Lactated Ringer's 1,000 mls @ 15 mls/hr 12/25/24 12:00 IV .Q48H VICENTE PFSH Medical History Wears glasses Non-smoker CPAP (continuous positive airway pressure) dependence Sleep apnea Viral illness High cholesterol History of hand fracture History of fibula fracture History of seasonal allergies Home Medications ?Medication ?Instructions ?Recorded ?Last Taken ?Type loratadine 10 mg tablet (Claritin) 10 mg PO DAILY PRN allergy symptoms 09/17/20 Unknown History rosuvastatin 5 mg tablet 5 mg PO .QD 09/17/20 Unknown History fluticasone propionate 50 1 spray intranasal DAILY PRN 03/20/22 Unknown History mcg/actuation nasal allergy symptoms spray,suspension (Flonase Allergy Relief) vitamin K2 45 mcg capsule 45 mcg PO DAILY 03/20/22 Unk nown History coenzyme Q10 50 mg capsule 50 mg PO QDAY 07/19/24 Unkn own History meloxicam 15 mg tablet 15 mg PO DAILY 07/19/24 Unkn own History multivitamin (Multiple Vitamins 1 tab PO QAM 07/19/24 Unknown History tablet) Allergy/AdvReac Type Severity Reaction Status Date / Time No Known Allergies Allergy Verified 12/25/24 12:05 Family History Grandfather Colon cancer Brother Depression Father High cholesterol Grandmother Skin cancer Surgical History Hx of discectomy History of wisdom tooth extraction History of vasectomy H/O hand surgery Social History Smoking Status: Never smoker alcohol intake: never substance use type: does not use what type of physical activity do you participate in: none Addt'l Information Additional Findings: Numbness in RLE due to pinched nerve. Patient had microdiscetomy, did not resolve the issue, still has residual numbness. Review of Systems (Anesthesia) ROS Narrative System reviewed and no additional complaints, except as documented.
--- NOTE | 2024-12-25 12:24 | HP.PCM_ITS ---
HPI - General HPI Narrative CAYDEN CREWS, is a 44 M who presents for screening colonoscopy. He has never had a colonoscopy in the past. He denies abdominal pain or blood in the stool. No family history of colon cancer. [facility] Medical History (Updated 12/25/24 @ 12:[address] Sekou Alberto MD) Wears glasses Non-smoker CPAP (continuous positive airway pressure) dependence Sleep apnea Viral illness High cholesterol History of hand fracture History of fibula fracture History of seasonal allergies Home Medications ?Medication ?Instructions ?Recorded ?Last Taken ?Type loratadine 10 mg tablet (Claritin) 10 mg PO DAILY PRN allergy symptoms 09/17/20 Unknown History rosuvastatin 5 mg tablet 5 mg PO .QD 09/17/20 Unknown History fluticasone propionate 50 1 spray intranasal DAILY PRN 03/20/22 Unknown History mcg/actuation nasal allergy symptoms spray,suspension (Flonase Allergy Relief) vitamin K2 45 mcg capsule 45 mcg PO DAILY 03/20/22 Unk nown History coenzyme Q10 50 mg capsule 50 mg PO QDAY 07/19/24 Unkn own History meloxicam 15 mg tablet 15 mg PO DAILY 07/19/24 Unkn own History multivitamin (Multiple Vitamins 1 tab PO QAM 07/19/24 Unknown History tablet) Allergy/AdvReac Type Severity Reaction Status Date / Time No Known Allergies Allergy Verified 12/25/24 12:05 Family History Grandfather Colon cancer Brother Depression Father High cholesterol Grandmother Skin cancer Surgical History (Updated 12/21/24 @ 09:19 by Rebekah James) Hx of discectomy History of wisdom tooth extraction History of vasectomy H/O hand surgery Social History Smoking Status: Never smoker alcohol intake: never substance use type: does not use what type of physical activity do you participate in: none Past Medical/Surgical History Planned Operation Planned Operative Procedure(s): ) Colonoscopy - Open Access Previous Hospitalizations/Surgeries HX Hospitalizations: No Any Problems With Anesthesia: No You/Your Family Experience Fever (Hyperthermia) With Anes: No Cholinesterase deficiency: No Cardiovascular Hx Hypertension: No Respiratory Hx Sleep Apnea: Yes CPAP: Yes BIPAP: No Hx Respiratory Tract Infection/Cold (presently): No Result (for STOP score): Positive Smoking Status: Never smoker Neurological Does patient have nerve stimulator: No Reproduction : No Miscellaneous Recent Exposure to Contagious Disease: No Allergies No Known Allergies Allergy (Verified 12/25/24 12:05) Discharge Is Pt Admitted From a Care Home, or a Correction: No After D/C, Where Do you Plan to Go: Return Home Vital Signs Vital Signs Vital Signs: 12/25/24 12:06 12/25/24 12:06 Temperature 97.7 F L Temperature Source Temporal Pulse Rate 77 Respiratory Rate 14 Respiratory Pattern Normal Blood Pressure 116/76 Blood Pressure Mean 89 Blood Pressure Source Monitor Blood Pressure Position Sitting Blood Pressure Location Right Arm Pulse Ox 100 Oxygen Delivery Method Room Air Weight Weight: 264 lb 8.875 oz Body Mass Index (BMI) 30.5 Physical Exam Const alert and oriented x3 HEENT normocephalic Eyes PERRL Resp normal respiratory effort and normal air movement Cardio regular rate and regular rhythm GI soft to palpation, non-tender and non-distended Extremity normal to inspection Assessment & Plan Assessment/Plan (1) Screen for colon cancer: PLAN: I explained endoscopy in detail to the patient. I explained the risks including but not limited to stroke or heart attack with anesthesia, perforation of the GI tract, bleeding, infection. I explained that any of these could necessitate further emergency surgery. The patient understands and all questions were answered sufficiently. The patient wishes to proceed with procedure. Sekou Alberto MD Pager: [facility] [address] [place] [address], [address] [place] [address] Office: Surgery Risks - Colonoscopy Risks Include but are not Limited To: Risks include but are not limited to: Bleeding, perforation requiring further surgery, inability to complete colonoscopy requiring barium enema.
--- NOTE | 2024-12-25 12:24 | HP.PCM_ITS ---
HPI - General HPI Narrative CAYDEN CREWS, is a 44 M who presents for screening colonoscopy. He has never had a colonoscopy in the past. He denies abdominal pain or blood in the stool. No family history of colon cancer. [facility] Medical History (Updated 12/25/24 @ 12:[address] Sekou Alberto MD) Wears glasses Non-smoker CPAP (continuous positive airway pressure) dependence Sleep apnea Viral illness High cholesterol History of hand fracture History of fibula fracture History of seasonal allergies Home Medications ?Medication ?Instructions ?Recorded ?Last Taken ?Type loratadine 10 mg tablet (Claritin) 10 mg PO DAILY PRN allergy symptoms 09/17/20 Unknown History rosuvastatin 5 mg tablet 5 mg PO .QD 09/17/20 Unknown History fluticasone propionate 50 1 spray intranasal DAILY PRN 03/20/22 Unknown History mcg/actuation nasal allergy symptoms spray,suspension (Flonase Allergy Relief) vitamin K2 45 mcg capsule 45 mcg PO DAILY 03/20/22 Unk nown History coenzyme Q10 50 mg capsule 50 mg PO QDAY 07/19/24 Unkn own History meloxicam 15 mg tablet 15 mg PO DAILY 07/19/24 Unkn own History multivitamin (Multiple Vitamins 1 tab PO QAM 07/19/24 Unknown History tablet) Allergy/AdvReac Type Severity Reaction Status Date / Time No Known Allergies Allergy Verified 12/25/24 12:05 Family History Grandfather Colon cancer Brother Depression Father High cholesterol Grandmother Skin cancer Surgical History (Updated 12/21/24 @ 09:19 by Rebekah James) Hx of discectomy History of wisdom tooth extraction History of vasectomy H/O hand surgery Social History Smoking Status: Never smoker alcohol intake: never substance use type: does not use what type of physical activity do you participate in: none Past Medical/Surgical History Planned Operation Planned Operative Procedure(s): ) Colonoscopy - Open Access Previous Hospitalizations/Surgeries HX Hospitalizations: No Any Problems With Anesthesia: No You/Your Family Experience Fever (Hyperthermia) With Anes: No Cholinesterase deficiency: No Cardiovascular Hx Hypertension: No Respiratory Hx Sleep Apnea: Yes CPAP: Yes BIPAP: No Hx Respiratory Tract Infection/Cold (presently): No Result (for STOP score): Positive Smoking Status: Never smoker Neurological Does patient have nerve stimulator: No Reproduction : No Miscellaneous Recent Exposure to Contagious Disease: No Allergies No Known Allergies Allergy (Verified 12/25/24 12:05) Discharge Is Pt Admitted From a Residential, or a Intermediate: No After D/C, Where Do you Plan to Go: Return Home Vital Signs Vital Signs Vital Signs: 12/25/24 12:06 12/25/24 12:06 Temperature 97.7 F L Temperature Source Temporal Pulse Rate 77 Respiratory Rate 14 Respiratory Pattern Normal Blood Pressure 116/76 Blood Pressure Mean 89 Blood Pressure Source Monitor Blood Pressure Position Sitting Blood Pressure Location Right Arm Pulse Ox 100 Oxygen Delivery Method Room Air Weight Weight: 264 lb 8.875 oz Body Mass Index (BMI) 30.5 Physical Exam Const alert and oriented x3 HEENT normocephalic Eyes PERRL Resp normal respiratory effort and normal air movement Cardio regular rate and regular rhythm GI soft to palpation, non-tender and non-distended Extremity normal to inspection Assessment & Plan Assessment/Plan (1) Screen for colon cancer: PLAN: I explained endoscopy in detail to the patient. I explained the risks including but not limited to stroke or heart attack with anesthesia, perforation of the GI tract, bleeding, infection. I explained that any of these could necessitate further emergency surgery. The patient understands and all questions were answered sufficiently. The patient wishes to proceed with procedure. Sekou Alberto MD Pager: [facility] [address] [place] [address], [address] [place] [address] Office: Surgery Risks - Colonoscopy Risks Include but are not Limited To: Risks include but are not limited to: Bleeding, perforation requiring further surgery, inability to complete colonoscopy requiring barium enema.
[2024-12-25] MEDS: Lidocaine 1% (5 ml sdv) 5 ML Vial IV (12:39)
--- NOTE | 2024-12-25 13:00 | OP.COLON_ITS ---
Patient Name: Rob Dwyer Procedure Date: 12/25/2024 12:37 PM Date of : 1980 Age: 44 Procedure: Colonoscopy Indications: Screening for colorectal malignant neoplasm Providers: Sekou Alberto MD Referring MD: Cyrus Quinn MD Medicines: Propofol per Anesthesia Patient Profile: This is a 44 year old male. Refer to note in patient chart for documentation of history and physical. Last Colonoscopy: none. The patient's first colonoscopy is today. Complications: No immediate complications. Procedure: Pre-Anesthesia Assessment: - Prior to the procedure, a History and Physical was performed, and patient medications and allergies were reviewed. The patient's tolerance of previous anesthesia was also reviewed. The risks and benefits of the procedure and the sedation options and risks were discussed with the patient. All questions were answered, and informed consent was obtained. Prior Anticoagulants: The patient has taken no anticoagulant or antiplatelet agents. After reviewing the risks and benefits, the patient was deemed in satisfactory condition to undergo the procedure. After I obtained informed consent, the scope was passed under direct vision. Throughout the procedure, the patient's blood pressure, pulse, and oxygen saturations were monitored continuously. The Colonoscope was introduced through the anus and advanced to the cecum, identified by appendiceal orifice and ileocecal valve. The colonoscopy was performed without difficulty. The patient tolerated the procedure well. The quality of the bowel preparation was good. The ileocecal valve, appendiceal orifice, and rectum were photographed. Scope In: 12:44:26 PM Scope Withdrawal Time 0 hours 6 minutes 12 seconds Scope Out: 12:56:39 PM Total Procedure Duration Time 0 hours 12 minutes 13 seconds Findings: The entire examined colon appeared normal on direct and retroflexion views. Impression: - The entire examined colon is normal on direct and retroflexion views. - No specimens collected. Recommendation: - Discharge patient to home. - Resume previous diet. - Continue present medications. - Repeat colonoscopy in 10 years for screening purposes. Procedure Code(s): --- Professional --- 07364, Colonoscopy, flexible; diagnostic, including collection of specimen(s) by brushing or washing, when performed (separate procedure) Diagnosis Code(s): --- Professional --- Z12.11, Encounter for screening for malignant neoplasm of colon CPT copyright 2021 [employer]. All rights reserved. The codes documented in this report are preliminary and upon certified family mediator review may be revised to meet current compliance requirements. Sekou Alberto MD 12/25/2024 12:59:48 PM This report has been signed electronically. Number of Addenda: 0 Note Initiated On: 12/25/2024 12:37 PM
--- NOTE | 2024-12-25 13:00 | OP.PROVAT_ITS ---
12/25/2024 Cyrus Quinn MD [address] [place] [address] Re : Colonoscopy procedure for Rob Dwyer Dear Dr. Quinn This procedure was performed on Wednesday, December 25, 2024. My impressions and recommendations are as follows: Impressions : - The entire examined colon is normal on direct and retroflexion views. - No specimens collected. Recommendations : - Discharge patient to home. - Resume previous diet. - Continue present medications. - Repeat colonoscopy in 10 years for screening purposes. My findings are described in the full procedure note, which is enclosed. If I can be of further assistance, please feel free to contact me at Doctor phone number(s): , Work: . Sincerely, Sekou Alberto MD 12/25/2024 12:59:48 PM This report has been signed electronically.
--- NOTE | 2024-12-25 13:00 | OP.PROVAT_ITS ---
12/25/2024 Cyrus Quinn MD [address] [place] [address] Re : Colonoscopy procedure for Rob Dwyer Dear Dr. Quinn This procedure was performed on Wednesday, December 25, 2024. My impressions and recommendations are as follows: Impressions : - The entire examined colon is normal on direct and retroflexion views. - No specimens collected. Recommendations : - Discharge patient to home. - Resume previous diet. - Continue present medications. - Repeat colonoscopy in 10 years for screening purposes. My findings are described in the full procedure note, which is enclosed. If I can be of further assistance, please feel free to contact me at Doctor phone number(s): , Work: . Sincerely, Sekou Alberto MD 12/25/2024 12:59:48 PM This report has been signed electronically.
--- NOTE | 2024-12-25 13:00 | OP.COLON_ITS ---
Patient Name: Rob Dwyer Procedure Date: 12/25/2024 12:37 PM Date of : 1980 Age: 44 Procedure: Colonoscopy Indications: Screening for colorectal malignant neoplasm Providers: Sekou Alberto MD Referring MD: Cyrus Quinn MD Medicines: Propofol per Anesthesia Patient Profile: This is a 44 year old male. Refer to note in patient chart for documentation of history and physical. Last Colonoscopy: none. The patient's first colonoscopy is today. Complications: No immediate complications. Procedure: Pre-Anesthesia Assessment: - Prior to the procedure, a History and Physical was performed, and patient medications and allergies were reviewed. The patient's tolerance of previous anesthesia was also reviewed. The risks and benefits of the procedure and the sedation options and risks were discussed with the patient. All questions were answered, and informed consent was obtained. Prior Anticoagulants: The patient has taken no anticoagulant or antiplatelet agents. After reviewing the risks and benefits, the patient was deemed in satisfactory condition to undergo the procedure. After I obtained informed consent, the scope was passed under direct vision. Throughout the procedure, the patient's blood pressure, pulse, and oxygen saturations were monitored continuously. The Colonoscope was introduced through the anus and advanced to the cecum, identified by appendiceal orifice and ileocecal valve. The colonoscopy was performed without difficulty. The patient tolerated the procedure well. The quality of the bowel preparation was good. The ileocecal valve, appendiceal orifice, and rectum were photographed. Scope In: 12:44:26 PM Scope Withdrawal Time 0 hours 6 minutes 12 seconds Scope Out: 12:56:39 PM Total Procedure Duration Time 0 hours 12 minutes 13 seconds Findings: The entire examined colon appeared normal on direct and retroflexion views. Impression: - The entire examined colon is normal on direct and retroflexion views. - No specimens collected. Recommendation: - Discharge patient to home. - Resume previous diet. - Continue present medications. - Repeat colonoscopy in 10 years for screening purposes. Procedure Code(s): --- Professional --- 01136, Colonoscopy, flexible; diagnostic, including collection of specimen(s) by brushing or washing, when performed (separate procedure) Diagnosis Code(s): --- Professional --- Z12.11, Encounter for screening for malignant neoplasm of colon CPT copyright 2021 [employer]. All rights reserved. The codes documented in this report are preliminary and upon medical clerical assistant review may be revised to meet current compliance requirements. Sekou Alberto MD 12/25/2024 12:59:48 PM This report has been signed electronically. Number of Addenda: 0 Note Initiated On: 12/25/2024 12:37 PM
--- NOTE | 2024-12-25 13:05 | PCM.POST.ANE ---
Anesthesia: Postop Eval I Current Vital Signs Temperature: 98.5 F Pulse Rate: 62 Blood Pressure: 111/73 Respiratory Rate: 16 Pulse Ox: 100 Oxygen Delivery Method: Room Air Assessment Airway patent: Yes Spontaneous unlabored respirations: Yes Mental status: Awake and Calm nausea: No Vomiting: No Anesthesia Complication: No Fluid Hydration Crystalloid volume administer (ml): 400 Total IV fluid infused: 400 Progress Note Anesthesia document: Postop Eval 1 completed: Yes
--- NOTE | 2024-12-25 14:16 | POSTOPAN2_ITS ---
Anesthesia Postop Eval I Sum Postop Eval Completion status Anesthesia document: Postop Eval 1 completed: Yes Anesthesia Postop Eval I Summary Anesthesia Postop Eval I Summary: Anesthesia Postop Eval I: Assessment Summary Airway patent Yes 12/25/24 13:05 NURSERY SCHOOL TEACHER.SKOBY Spontaneous unlabored Yes 12/25/24 13:05 NURSERY SCHOOL TEACHER.TAMMY respirations Mental status Awake,Calm 12/25/24 13:05 NURSERY SCHOOL TEACHER.SKOBY nausea No 12/25/24 13:05 NURSERY SCHOOL TEACHER.RAINAOBY Vomiting No 12/25/24 13:05 NURSERY SCHOOL TEACHER.RAINAOBKarolyn Anesthesia Postop Eval I: Fluid Summary Crystalloid volume administer 400 12/25/24 13:05 NURSERY SCHOOL TEACHER.SKOBY (ml) Colloids volume administered ( ml) Blood Product volume administered (ml) Total IV fluid infused 400 12/25/24 13:05 NURSERY SCHOOL TEACHER.TAMMY Anesthesia Postop Eval I: Summary Notes Anesthesia Complication No 12/25/24 13:05 NURSERY SCHOOL TEACHER.TAMMY Anesthesia Complication Comment: Post-operative progress note Anesthesia: Postop Eval II Evaluation Mental status: Awake and Calm Pain Level: 0 nausea: No Vomiting: No Complications Anesthesia Complication: No
--- NOTE | 2024-12-25 14:16 | POSTOPAN2_ITS ---
Anesthesia Postop Eval I Sum Postop Eval Completion status Anesthesia document: Postop Eval 1 completed: Yes Anesthesia Postop Eval I Summary Anesthesia Postop Eval I Summary: Anesthesia Postop Eval I: Assessment Summary Airway patent Yes 12/25/24 13:05 QUALITATIVE EXECUTIVE RESEARCHER.SKOBY Spontaneous unlabored Yes 12/25/24 13:05 QUALITATIVE EXECUTIVE RESEARCHER.TAMMY respirations Mental status Awake,Calm 12/25/24 13:05 QUALITATIVE EXECUTIVE RESEARCHER.SKOBY nausea No 12/25/24 13:05 QUALITATIVE EXECUTIVE RESEARCHER.RAINAOBY Vomiting No 12/25/24 13:05 QUALITATIVE EXECUTIVE RESEARCHER.RAINAOBKarolyn Anesthesia Postop Eval I: Fluid Summary Crystalloid volume administer 400 12/25/24 13:05 QUALITATIVE EXECUTIVE RESEARCHER.SKOBY (ml) Colloids volume administered ( ml) Blood Product volume administered (ml) Total IV fluid infused 400 12/25/24 13:05 QUALITATIVE EXECUTIVE RESEARCHER.TAMMY Anesthesia Postop Eval I: Summary Notes Anesthesia Complication No 12/25/24 13:05 QUALITATIVE EXECUTIVE RESEARCHER.TAMMY Anesthesia Complication Comment: Post-operative progress note Anesthesia: Postop Eval II Evaluation Mental status: Awake and Calm Pain Level: 0 nausea: No Vomiting: No Complications Anesthesia Complication: No
--- NOTE | 2024-12-25 14:16 | PCM.POSTANE2 ---
Anesthesia Postop Eval I Sum Postop Eval Completion status Anesthesia document: Postop Eval 1 completed: Yes Anesthesia Postop Eval I Summary Anesthesia Postop Eval I Summary: Anesthesia Postop Eval I: Assessment Summary Airway patent Yes 12/25/24 13:05 PATHOLOGY TECHNOLOGIST.SKOBY Spontaneous unlabored Yes 12/25/24 13:05 PATHOLOGY TECHNOLOGIST.TAMMY respirations Mental status Awake,Calm 12/25/24 13:05 PATHOLOGY TECHNOLOGIST.SKOBY nausea No 12/25/24 13:05 PATHOLOGY TECHNOLOGIST.RAINAOBY Vomiting No 12/25/24 13:05 PATHOLOGY TECHNOLOGIST.RAINAOBKarolyn Anesthesia Postop Eval I: Fluid Summary Crystalloid volume administer 400 12/25/24 13:05 PATHOLOGY TECHNOLOGIST.SKOBY (ml) Colloids volume administered ( ml) Blood Product volume administered (ml) Total IV fluid infused 400 12/25/24 13:05 PATHOLOGY TECHNOLOGIST.TAMMY Anesthesia Postop Eval I: Summary Notes Anesthesia Complication No 12/25/24 13:05 PATHOLOGY TECHNOLOGIST.TAMMY Anesthesia Complication Comment: Post-operative progress note Anesthesia: Postop Eval II Evaluation Mental status: Awake and Calm Pain Level: 0 nausea: No Vomiting: No Complications Anesthesia Complication: No
--- NOTE | 2024-12-25 14:16 | PCM.POSTANE2 ---
Anesthesia Postop Eval I Sum Postop Eval Completion status Anesthesia document: Postop Eval 1 completed: Yes Anesthesia Postop Eval I Summary Anesthesia Postop Eval I Summary: Anesthesia Postop Eval I: Assessment Summary Airway patent Yes 12/25/24 13:05 LAW LIBRARIAN.SKOBY Spontaneous unlabored Yes 12/25/24 13:05 LAW LIBRARIAN.TAMMY respirations Mental status Awake,Calm 12/25/24 13:05 LAW LIBRARIAN.SKOBY nausea No 12/25/24 13:05 LAW LIBRARIAN.RAINAOBY Vomiting No 12/25/24 13:05 LAW LIBRARIAN.RAINAOBKarolyn Anesthesia Postop Eval I: Fluid Summary Crystalloid volume administer 400 12/25/24 13:05 LAW LIBRARIAN.SKOBY (ml) Colloids volume administered ( ml) Blood Product volume administered (ml) Total IV fluid infused 400 12/25/24 13:05 LAW LIBRARIAN.TAMMY Anesthesia Postop Eval I: Summary Notes Anesthesia Complication No 12/25/24 13:05 LAW LIBRARIAN.TAMMY Anesthesia Complication Comment: Post-operative progress note Anesthesia: Postop Eval II Evaluation Mental status: Awake and Calm Pain Level: 0 nausea: No Vomiting: No Complications Anesthesia Complication: No
--- OUTSIDE RECORDS SUMMARY | 2024-12-25 19:23 | XMS RPT_ITS | CCD ---
Author Organization [facility] CliniSyal Care Team Providers Care Artillery Officer Name Role Phone Dr. Cyrus Quinn Primary Care Provider [phone] Kai, Dr. Bridges Referring Provider Adrian, Dr. Quintero Attending Provider [phone] Kai GONZALEZ, Dr. Bridges Primary Care Provider Kai GONZALEZ, Dr. Bridges Attending Provider [phone] Kai GONZALEZ, Dr. Bridges Referring Provider Cyrus Quinn Primary Care Unavailable Kai, Cyrus Referring Unavailable Uri Ortiz Attending Unavailable Quinn, Cyrus Attending Unavailable Quinn, Cyrus Referring Unavailable Quinn, Cyrus Primary Care Unavailable Quinn, Cyrus Referring Unavailable Quinn, Cyrus Primary Care Unavailable Sekou Alberto Attending Unavailable Quinn, Cyrus Primary Care Unavailable Quinn, Cyrus Referring Unavailable Ochoa Gill Attending Unavailable Dolly GONZALEZ, Dr. Sapp Attending Provider [phone] Dolly GONZALEZ, Dr. Sapp Other Provider [phone] Medications Current Medications Medication Drug Class(es) Dates Sig (Normalized) Sig (Original) fluticasone propionate 0.05 mg/actuat metered dose nasal spray (5 sources) Corticosteroid Start: 03-20-2022 take 50 ug nasal route once daily as needed Fluticasone Propionate (Flonase Allergy Relief) 50 mcg/actuation spray,suspension Active 1 NMA INTRANASAL DAILY as needed for allergy symptoms March 20, 2022 12:00am administer into each nostril Start: 03-20-2022 take 1 spray(s) nasa l route once daily Fluticasone Propionate (Flonase Allergy Relief) 50 mcg/actuation spray,suspension Active 1 SPRAY INTRANASAL DAILY March 20, 2022 12:00am administer into each nostril loratadine 10 mg oral tablet (6 sources) Start: 09-17-2020 take 1 tablet by mouth once daily as needed Loratadine (Claritin) 10 mg tablet Active 10 mg PO DAILY as needed for allergy symptoms September 17, 2020 12:00am meloxicam 15 mg oral tablet (2 sources) Nonsteroidal Anti-inflammatory Drug Start: 07-19-2024 take 1 tablet by mouth once daily Meloxicam 15 mg tablet Active 15 mg PO DAILY July 19, 2024 1:00am Multivitamin (Multiple Vitamins) tablet (2 sources) Start: 07-19-2024 Multivitamin (Multiple Vitamins) tablet Active 1 {tbl} PO EVERY MORNING July 19, 2024 1:00am rosuvastatin calcium 5 mg oral tablet (6 sources) HMG-CoA Reductase Inhibitor Start: 09-17-2020 take 1 tablet by mouth once daily Rosuvastatin 5 mg tablet Active 5 mg PO .QD September 17, 2020 12:00am Start: 09-17-2020 Rosuvastatin 5 mg tablet Active NMA PO September 17, 2020 12:00am ubidecarenone 50 mg oral capsule (2 sources) Start: 07-19-2024 Coenzyme Q10 5 0 mg capsule Active 50 mg PO daily July 19, 2024 1:00am vitamin K2 (3 sources) Start: 03-20-2022 take 45 ug by mouth once daily Vitamin K2 Active 45 MCG PO DAILY March 20, 2022 12:00am Vitamin K2 45 mcg capsule (2 sources) Start: 03-20-2022 Vitamin K2 45 mcg capsule Active 45 ug PO DAILY March 20, 2022 12:00am Completed/Discontinued Medications Medication Drug Class(es) Dates Sig (Normalized) Sig (Original) amoxicillin 500 mg oral tablet (2 sources) Penicillin-class Antibacterial Start: 04-10-2024 End: 07-19-2024 take 1 tablet by mouth three times daily Amoxicillin 500 mg tablet Discontinued 500 mg PO THREE TIMES A DAY 30 0 April 10, 2024 1:00am July 19, 2024 9:31am amoxicillin 875 mg / clavulanate 125 mg oral tablet (5 sources) Penicillin-class Antibacterial Start: 03-20-2022 End: 03-30-2022 Amoxicillin-Pot Clavulanate 875-125 mg tablet Discontinued 1 {tbl} PO Q12H 20 10 0 March 20, 2022 12:00am March 29, 2022 1:00am March 30, 2022 1:04am Acute sinusitis, unspecified Start: 03-20-2022 End: 03-30-2022 take 1 tablet by mouth every twelve hours Amoxicillin-Pot Clavulanate Discontinued 1 TABLET PO Q12H 20 March 20, 2022 12:00am March 30, 2022 1:04am Problems Problem Classification Problem Date Documented Da te Episodic/Chronic Allergic reactions (6 sources) H/O: non-drug allergy; Translations: [Allergy status to unspecified drugs, medicaments and biological substances status] 09-17-2020 Episodic Disorders of lipid metabolism (6 sources) Hypercholesterolem ia; Translations: [Pure hypercholesterolem ia, unspecified] 09-17-2020 Chronic Other bone disease and musculoskeletal deformities (18 sources) Segmental and somatic dysfunction; Translations: [Segmental [...] Translations: [Nonallopathic lesions, thoracic region] Episodic Other screening for suspected conditions (not mental disorders or infectious disease) (2 sources) Patient encounter status; Translations: [Encounter for screening for malignant neoplasm of colon] 12-25-2024 Episodic Other upper respiratory infections (5 sources) Acute sinusitis; Translations: [Acute sinusitis, unspecified] 03-20-2022 Episodic Spondylosis; intervertebral disc disorders; other back problems (17 sources) Backache; Translations: [Dorsalgia, unspecified] Episodic Unclassified (1 source) Cough, unspecified; Translations: [Cough, unspecified] Onset: 04-10-2024 Viral infection (2 sources) Viral disease; Translations: [Viral infection, unspecified] 07-19-2024 Episodic Results Test Name Value Interpretation Reference Range Facility Anion gap in Serum or Plasma Ordered By: Cyrus Quinn on 12-09-2024 Anion gap [Moles/Vol] 11 mmol/L 09-28 [facility] BUN/creatinine ratioOrdered By: Cyrus Quinn on 12-09-2024 Urea nitrogen/Creatinine [Mass ratio] 22.9 mg/mg High - [facility] Basic Metabolic Profile (BMP )on 12-09-2024 BUN/CRE 22.9 RATIO High - [facility] Comment on above: Performed By: #### L 500.4100, L500.2500 #### [facility] [address] [place], [address] Calcium [Mass/Vol] 9.4 mg/dL Normal 7.6-11.0 [facility] Comment on above: Performed By: #### L 500.4100, L500.2500 #### [facility] [address] [place], [address] Chloride [Moles/Vol] 104 mmol/L Normal 98-108 [facility] Comment on above: Performed By: #### L 500.4100, L500.2500 #### [facility] [address] [place], [address] CO2 [Moles/Vol] 24.3 mmol/L Normal 21.0-32.0 [facility] Comment on above: Performed By: #### L 500.4100, L500.2500 #### [facility] [address] [place], [address] Creatinine [Mass/Vol] 0.98 mg/dL Normal 0.70-1.20 [facility] Comment on above: Performed By: #### L 500.4100, L500.2500 #### [facility] [address] [place], [address] GAP 11 Normal 5-15 [facility] Comment on above: Performed By: #### L 500.4100, L500.2500 #### [facility] [address] [place], [address] GFR/1.73 sq M.predicted among non-blacks MDRD (S/P/Bld) [Vol rate/Area] 97 mL/min/{1.73_m2} Normal >60 [facility] Comment on above: Result Comment: mL/m in/1.73m2 CKD-EPI Creatinine Equation (2020) Performed By: #### L 500.4100, L500.2500 #### [facility] [address] [place], [address] Glucose [Mass/Vol] 108 mg/dL High 70-99 [facility] Comment on above: Performed By: #### L 500.4100, L500.2500 #### [facility] [address] [place], [address] Potassium [Moles/Vol] 4.1 mmol/L Normal 3.3-5.1 [facility] Comment on above: Performed By: #### L 500.4100, L500.2500 #### [facility] [address] [place], [address] Sodium [Moles/Vol] 140 mmol/L Normal 133-145 [facility] Comment on above: Performed By: #### L 500.4100, L500.2500 #### [facility] [address] [place], [address] Urea nitrogen [Mass/Vol] 22 mg/dL High 4-19 [facility] Comment on above: Performed By: #### L 500.4100, L500.2500 #### [facility] [address] [place], [address] Calculated very low density lipoprotein (VLDL) cholesterol measurementOrdered By: Cyrus Quinn on 12-09-2024 Calculated very low density lipoprotein (VLDL) cholesterol measurement 12 mg/dL 5-40 [facility] Carbon dioxide, total [Moles /volume] in Central venous bloodOrdered By: Cyrus Quinn on 12-09-2024 CO2 [Moles/Vol] 24.3 mmol/L 21.0-32.0 [facility] Chloride assayOrdered By: Driss Quinn on 12-09-2024 Chloride [Moles/Vol] 104 mmol/L 98-108 [facility] Glomerular filtration rate ( GFR) estimation/1.73 sq m using serum, plasma, or whole bOrdered By: Cyrus Quinn on 12-09-2024 GFR/1.73 sq M.predicted among non-blacks MDRD (S/P/Bld) [Vol rate/Area] 97 mL/min/{1.73_m2} >60 [facility] Comment on above: mL/min/1.73m2 CKD-EP I Creatinine Equation (2020) LDL calc ser/plasOrdered By: Cyrus Quinn on 12-09-2024 Cholesterol in LDL [Mass/Vol] 109 mg/dL [facility] Comment on above: Ifxmcwquap=402-214 m g/dL & Higher Nnyl=861 mg/dL or greaterFriedwald Equation for LDL-C Lipid Profileon 12-09-2024 CHOL:HDL 3.18 Normal [facility] Comment on above: Performed By: #### L 500.4100, L500.2500 #### [facility] [address] [facility] [place], [place], [id number] Cholesterol [Mass/Vol] 177 mg/dL Normal <=200 [facility] Comment on above: Result Comment: Chol esterol level, Desirable <200 mg/dL Borderline high cholesterol 200-239 mg/dL High cholesterol >=240 mg/dL Recommendations of the NCEP Adult Treatment Panel for the following risk-cutoff thresholds for the [place] population. Performed By: #### L 500.4100, L500.2500 #### [facility] [address] [place], [place], [address] Cholesterol in HDL [Mass/Vol] 56 mg/dL Normal [facility] Comment on above: Result Comment: Candi onal Cholesterol Education Program (NCEP) guidelines: <40 mg/dL: Low HDL-cholesterol (major risk factor for CHD) >= 60 mg/dL: High HDL-cholesterol (negative risk factor for CHD) HDL-cholesterol is affected by a number of factors, e.g. smoking, exercise, hormones, sex and age. Performed By: #### L 500.4100, L500.2500 #### [facility] [address] [place], [address] Cholesterol in LDL [Mass/Vol] 109 mg/dL Normal [facility] Comment on above: Result Comment: Bord wdhrne=158-947 mg/dL Higher Mgoi=042 mg/dL or greater Friedwald Equation for LDL-C Performed By: #### L 500.4100, L500.2500 #### [facility] [address] [place], [address] Cholesterol in VLDL [Mass/Vol] 12 mg/dL Normal 5-40 [facility] Comment on above: Performed By: #### L 500.4100, L500.2500 #### [facility] [address] [place], [address] Triglyceride [Mass/Vol] 60 mg/dL Normal [facility] Comment on above: Result Comment: The drugs N-Acetylcysteine and Metamizole may falsely depress this assay. Normal range: <150 mg/dL Borderline High: 150-199 mg/dL High: 200-499 mg/dL Very High: >500 mg/dL Performed By: #### L 500.4100, L500.2500 #### [facility] [address] [place], [address] Potassium measurement (mass/ volume)Ordered By: Cyrus Quinn on 12-09-2024 Potassium (Unsp spec) [Mass/Vol] 4.1 mmol/L 3.3-5.1 [facility] Screening total cholesterol/ high density lipoprotein (HDL) cholesterol ratioOrdered By: Cyrus Quinn on 12-09-2024 Cholesterol.total/Ada sterol in HDL [Mass ratio] 3.18 {ratio} [facility] Serum creatinine measurement (mass/volume)Ordered By: Cyrus Quinn on 12-09-2024 Creatinine [Mass/Vol] 0.98 mg/dL 0.70-1.20 [facility] Serum glucose measurement (m ass/volume)Ordered By: Cyrus Quinn on 07-26-2025 Glucose [Mass/Vol] 108 mg/dL High 70-99 [facility] Serum or plasma calcium lottie urement (mass/volume)Ordered By: Cyrus Quinn on 12-09-2024 Calcium [Mass/Vol] 9.4 mg/dL 7.6-11.0 [facility] Serum or plasma cholesterol in HDL measurement (mass/volume)Ordered By: Cyrus Quinn on 12-09-2024 Cholesterol in HDL [Mass/Vol] 56 mg/dL >40 [facility] Comment on above: National Cholesterol Education Program (NCEP) guidelines:<40 mg/dL: Low HDL-cholesterol (major risk factor for CHD)>= 60 mg/dL: High HDL-cholesterol (negative risk factor for CHD)HDL-cholesterol is affected by a number of factors, e.g. smoking, exercise, hormones, sex and age. Serum or plasma cholesterol measurement (mass/volume)Ordered By: Cyrus Quinn on 12-09-2024 Cholesterol [Mass/Vol] 177 mg/dL <201 [facility] Comment on above: Cholesterol level, D esirable <200 mg/dLBorderline high cholesterol 200-239 mg/dLHigh cholesterol >=240 mg/dLRecommendations of the NCEP Adult Treatment Panel for the following risk-cutoff thresholds for the [place] population. Serum or plasma urea nitroge n measurement (mass/volume)Ordered By: Cyrus Quinn on 12-09-2024 Urea nitrogen [Mass/Vol] 22 mg/dL High 4-19 [facility] Sodium levelOrdered By: Cyrus Quinn on 12-09-2024 Sodium [Moles/Vol] 140 mmol/L 133-145 [facility] Triglycerides measurementOrd ered By: Cyrus Quinn on 12-09-2024 Triglyceride [Mass/Vol] 60 mg/dL <199 [facility] Comment on above: The drugs N-Acetylcy steine and Metamizole may falsely depress this assay. Normal range: <150 mg/dLBorderline High: 150-199 mg/dLHigh: 200-499 mg/dLVery High: >500 mg/dL Urgent Care Visit Reporton 0 07-19-2024 Urgent Care Visit Report [facility] [address], [address] [place] [address] OFFICE VISIT Date of Service: 07/19/24 MR#: [id number] Acct: [id number] Name: ROB DWYER Rep #: [id number] : 1980 Provider: ALISE Gill Age/Sex: 44/M Location: [facility] Status: Signed Intake Vital Signs 03/20/22 17:39 [...] is old and did yard work Wednesday. [facility] Medical History (Updated 07/19/24 @ 08:50 [...] most likely viral in origin and recommended keay-ien-unguhje treatments as needed for symptomatic relief. Will follow-up with PCP if symptoms not improving. 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 MANAGER-C Cosigner Signature: Date (if applicable) CC: Normal [facility] Visit Reporton 1 06-10-2023 Urgent Care Visit Report [facility] [address], [address] [place] [address] OFFICE VISIT Date of Service: 04/10/24 MR#: [id number] Acct: [id number] Name: ROB DWYER Rep #: [id number] : 1980 Provider: DRISS Villalobos Age/Sex: 44/M Location: [facility] Status: Signed Intake Vital Signs 03/20/22 17:39 04/10/24 09:31 Height 6 ft 6 in BP 124/78 H Blood Pressure Location Lt brachial Position Sitting Respiration 14 Pulse 71 Pulse Source NIBP Temp 98.0 F Temp Source Oral Pulse Oximetry (%) 97 Oxygen Delivery Method room air Intake Visit Reasons: COUGH/CONGESTION/L EYE COMPLAINT Chief Complaint: cough, congestion/ l eye irritation Candy Spreader Required: No Is patient in pain?: No [...] habitus Orientation: alert, awake and oriented x3 HENMT Head: normal to inspection Ears: hearing grossly [...] Supportive measur (more content not included)... Normal [facility] Basophil percentageOrdered B y: Cyrus Quinn on 07-27-2023 Chloride [Moles/Vol] 108 mmol/L 98-107 [facility] Cholesterol [Mass/Vol] 131 mg/dL <200 [facility] Comment on above: <200 mg/dL Desirable 200-240 mg/dL Borderline >240 mg/dL High Risk Glucose [Mass/Vol] 115 mg/dL 74-106 [facility] Comment on above: Fasting Glucose resu lt from 100 to 125 mg/dL suggests IMPAIRED HOMEOSTASIS per A.D.A. criteria. Potassium [Moles/Vol] 3.9 mmol/L 3.5-5.1 [facility] Sodium [Moles/Vol] 142 mmol/L 136-145 [facility] Triglyceride [Mass/Vol] 54 mg/dL <199 [facility] Comment on above: The drugs N-Acetylcy steine and Metamizole may falsely depress this assay.Serum Triglycerides Reference Interval Normal <150 mg/dL Borderline high 150 - 199 mg/dL High 200 - 499 mg/dL Very High > or = 500 mg/dL Laboratory - Chemistry and C hemistry - challengeOrdered By: Cyrus Quinn on 07-27-2023 Cholesterol in HDL [Mass/Vol] 50 mg/dL >40 [facility] Comment on above: The drugs N-Acetylcy steine and Metamizole may falsely depress this assay. Reference Range HDL <40 mg/dL Low HDL Cholesterol HDL >or= 60 mg/dL High HDL Cholesterol Cholesterol in LDL [Mass/Vol] 70 mg/dL 0-130 [facility] CO2 [Moles/Vol] 29.0 mmol/L 21.0-32.0 [facility] Urea nitrogen/Creatinine [Mass ratio] 19.7 mg/mg 10-20 [facility] No Panel InformationOrdered By: Cyrus Quinn on 07-27-2023 Estimated GFR (MDRD) Amer 115 mL/min >60 [facility] Comment on above: GFR Calc Estimated GFR (MDRD) Non-Af Amer 95 mL/min >60 [facility] Comment on above: Non- GFR Calc VLDL Cholesterol 11 mg/dL 5-40 [facility] Serum or plasma calcium lottie urement (mass/volume)Ordered By: Cyrus Quinn on 07-27-2023 Calcium [Mass/Vol] 8.9 mg/dL 8.5-10.1 [facility] Serum or plasma creatinine m easurement (mass/volume)Ordered By: Cyrus Quinn on 07-27-2023 Creatinine [Mass/Vol] 0.91 mg/dL 0.70-1.30 [facility] Comment on above: The validity of the calculated GFR & GFRAA in patients over 70 years has not been determined. Clinical correlation is essential. Serum or plasma urea nitroge n measurement (mass/volume)Ordered By: Cyrus Quinn on 07-27-2023 Urea nitrogen [Mass/Vol] 18 mg/dL 7-18 [facility] Thin prep Papanicolaou smear with manual screeningOrdered By: Cyrus Quinn on 07-27-2023 Thin prep Papanicolaou smear with manual screening 5 5-15 [facility] Whole blood hemoglobin A1c/t otal hemoglobin ratio (mass fraction)Ordered By: Cyrus Quinn on 07-27-2023 HbA1c (Bld) [Mass fraction] 5.9 % 3.8-5.6 [facility] Comment on above: Normal < 5.7 % Predi abetic 5.7 - 6.4 % Diabetic >or= 6.5 % Please note range changes. Basophil percentageOrdered B y: Cyrus Quinn on 01-12-2023 Bilirubin [Mass/Vol] 0.30 mg/dL 0.20-1.00 [facility] Comment on above: For patients on eltr ombopag therapy, use of Dimension Cranberry TBIL is not recommended. Chloride [Moles/Vol] 108 mmol/L 98-107 [facility] Cholesterol [Mass/Vol] 141 mg/dL <200 [facility] Comment on above: <200 mg/dL Desirable 200-240 mg/dL Borderline >240 mg/dL High Risk Glucose [Mass/Vol] 113 mg/dL 74-106 [facility] Comment on above: Fasting Glucose resu lt from 100 to 125 mg/dL suggests IMPAIRED HOMEOSTASIS per A.D.A. criteria. Potassium [Moles/Vol] 3.7 mmol/L 3.5-5.1 [facility] Protein [Mass/Vol] 7.1 g/dL 6.4-8.2 [facility] Sodium [Moles/Vol] 142 mmol/L 136-145 [facility] Triglyceride [Mass/Vol] 60 mg/dL <199 [facility] Comment on above: The drugs N-Acetylcy steine and Metamizole may falsely depress this assay.Serum Triglycerides Reference Interval Normal <150 mg/dL Borderline high 150 - 199 mg/dL High 200 - 499 mg/dL Very High > or = 500 mg/dL Laboratory - Chemistry and C hemistry - challengeOrdered By: Cyrus Quinn on 01-12-2023 ALP [Catalytic activity/Vol] 69 U/L 45-117 [facility] ALT [Catalytic activity/Vol] 47 U/L 16-61 [facility] CO2 [Moles/Vol] 30.0 mmol/L 21.0-32.0 [facility] Globulin (S) [Mass/Vol] 3.3 g/dL 2.2-4.2 [facility] Urea nitrogen/Creatinine [Mass ratio] 20.8 mg/mg 10-20 [facility] No Panel InformationOrdered By: Cyrus Quinn on 01-12-2023 Estimated GFR (MDRD) Amer 103 mL/min >60 [facility] Comment on above: GFR Calc Estimated GFR (MDRD) Non-Af Amer 85 mL/min >60 [facility] Comment on above: Non- GFR Calc Serum or plasma albumin lottie urement (mass/volume)Ordered By: Cyrus Quinn on 01-12-2023 Albumin [Mass/Vol] 3.8 g/dL 3.2-5.0 [facility] Serum or plasma albumin/glob ulin mass ratioOrdered By: Cyrus Quinn on 01-12-2023 Albumin/Globulin [Mass ratio] 1.2 {ratio} 0.9-2.4 [facility] Serum or plasma calcium lottie urement (mass/volume)Ordered By: Cyrus Quinn on 01-12-2023 Calcium [Mass/Vol] 9.0 mg/dL 8.5-10.1 [facility] Serum or plasma cholesterol in HDL measurement (mass/volume)Ordered By: Cyrus Quinn on 01-12-2023 Cholesterol in HDL [Mass/Vol] 44 mg/dL >40 [facility] Comment on above: The drugs N-Acetylcy steine and Metamizole may falsely depress this assay. Reference Range HDL <40 mg/dL Low HDL Cholesterol HDL >or= 60 mg/dL High HDL Cholesterol Serum or plasma cholesterol in VLDL measurement (mass/volume)Ordered By: Cyrus Quinn on 01-12-2023 Cholesterol in VLDL [Mass/Vol] 12 mg/dL 5-40 [facility] Serum or plasma creatinine m easurement (mass/volume)Ordered By: Cyrus Quinn on 01-12-2023 Creatinine [Mass/Vol] 1.01 mg/dL 0.70-1.30 [facility] Comment on above: The validity of the calculated GFR & GFRAA in patients over 70 years has not been determined. Clinical correlation is essential. Serum or plasma low density lipoprotein (LDL) cholesterol measurement (mass/volume)Ordered By: Cyrus Quinn on 01-12-2023 Cholesterol in LDL [Mass/Vol] 85 mg/dL 0-130 [facility] Serum or plasma urea nitroge n measurement (mass/volume)Ordered By: Cyrus Quinn on 01-12-2023 Urea nitrogen [Mass/Vol] 21 mg/dL 7-18 [facility] Thin prep Papanicolaou smear with manual screeningOrdered By: Cyrus Quinn on 01-12-2023 Thin prep Papanicolaou smear with manual screening 20 U/L 15-37 [facility] Thin prep Papanicolaou smear with manual screening 4 5-15 [facility] Basophil percentageon 2021 Bilirubin [Mass/Vol] 0.30 mg/dL 0.20-1.00 [facility] Work Phone: Comment on above: For patients on eltr ombopag therapy, use of Dimension Cranberry TBIL is not recommended. Chloride [Moles/Vol] 106 mmol/L 98-107 [facility] Work Phone: Cholesterol [Mass/Vol] 177 mg/dL <200 [facility] Work Phone: Comment on above: <200 mg/dL Desirable 200-240 mg/dL Borderline >240 mg/dL High Risk Glucose [Mass/Vol] 107 mg/dL 74-106 [facility] Work Phone: Comment on above: Fasting Glucose resu lt from 100 to 125 mg/dL suggests IMPAIRED HOMEOSTASIS per A.D.A. criteria. Potassium [Moles/Vol] 3.8 mmol/L 3.5-5.1 [facility] Work Phone: Protein [Mass/Vol] 7.2 g/dL 6.4-8.2 [facility] Work Phone: Sodium [Moles/Vol] 141 mmol/L 136-145 [facility] [facility] Work Phone: Triglyceride [Mass/Vol] 80 mg/dL <199 [facility] Work Phone: Comment on above: The drugs N-Acetylcy steine and Metamizole may falsely depress this assay.Serum Triglycerides Reference Interval Normal <150 mg/dL Borderline high 150 - 199 mg/dL High 200 - 499 mg/dL Very High > or = 500 mg/dL Laboratory - Chemistry and C hemistry - challengeon 02-26-2022 ALP [Catalytic activity/Vol] 63 U/L 45-117 [facility] Work Phone: ALT [Catalytic activity/Vol] 50 U/L 16-61 [facility] Work Phone: CO2 [Moles/Vol] 27.0 mmol/L 21.0-32.0 [facility] Work Phone: Globulin (S) [Mass/Vol] 3.5 g/dL 2.2-4.2 [facility] Work Phone: Urea nitrogen/Creatinine [Mass ratio] 18.0 mg/mg 10-20 [facility] Work Phone: No Panel Informationon 02-26 Estimated GFR (MDRD) Amer 111 mL/min >60 [facility] Work Phone: Comment on above: GFR Calc Estimated GFR (MDRD) Non-Af Amer 92 mL/min >60 [facility] Work Phone: Comment on above: Non- GFR Calc Serum or plasma albumin lottie urement (mass/volume)on 02-26-2022 Albumin [Mass/Vol] 3.7 g/dL 3.2-5.0 [facility] Work Phone: Serum or plasma albumin/glob ulin mass ratioon 02-26-2022 Albumin/Globulin [Mass ratio] 1.1 {ratio} 0.9-2.4 [facility] Work Phone: Serum or plasma calcium lottie urement (mass/volume)on 02-26-2022 Calcium [Mass/Vol] 9.0 mg/dL 8.5-10.1 [facility] Work Phone: Serum or plasma cholesterol in HDL measurement (mass/volume)on 02-26-2022 Cholesterol in HDL [Mass/Vol] 49 mg/dL >40 [facility] Work Phone: Comment on above: The drugs N-Acetylcy steine and Metamizole may falsely depress this assay. Reference Range HDL <40 mg/dL Low HDL Cholesterol HDL >or= 60 mg/dL High HDL Cholesterol Serum or plasma cholesterol in VLDL measurement (mass/volume)on 02-26-2022 Cholesterol in VLDL [Mass/Vol] 16 mg/dL 5-40 [facility] Work Phone: Serum or plasma creatinine m easurement (mass/volume)on 02-26-2022 Creatinine [Mass/Vol] 0.95 mg/dL 0.70-1.30 [facility] Work Phone: Comment on above: The validity of the calculated GFR & GFRAA in patients over 70 years has not been determined. Clinical correlation is essential. Serum or plasma low density lipoprotein (LDL) cholesterol measurement (mass/volume)on 02-26-2022 Cholesterol in LDL [Mass/Vol] 112 mg/dL 0-130 [facility] Work Phone: Serum or plasma urea nitroge n measurement (mass/volume)on 02-26-2022 Urea nitrogen [Mass/Vol] 17 mg/dL 7-18 [facility] Work Phone: Thin prep Papanicolaou smear with manual screeningon 02-26-2022 Thin prep Papanicolaou smear with manual screening 13 U/L 15-37 [facility] Work Phone: Thin prep Papanicolaou smear with manual screening 8 5-15 [facility] Work Phone: CNOVon 01-19-2022 CNOV Office Visit (UCWSTR ) ROB DWYER ([id number]) 1980 M Date Time Provider Department 01/19/22 10:15 AM MARIA A PAEZ RUST During your visit today, we recorded the following information about you: Temperature Pulse Respiration Blood pressure 97.1 degrees 70/minute 21/minute 140/78 Weight 120.6 kg Maria A Paez APRN.DOCUMENT PHOTOGRAPHER 01/19/2022 10:25 AM Signed CC: Patient presents [...] agreeable to treatment plan. Maria A Paez APRN.DOCUMENT PHOTOGRAPHER Referring Provider: SELF [200] Allergies As of [...] Q10 20 (more content not included)... Normal [facility] CNOVon 07-27-2021 CNOV Office Visit (UCWSTR ) ROB DWYER ([id number]) 1980 M Date Time Provider Department 07/27/21 11:00 AM BRITANY RICO During your visit today, we recorded the [...] daily for 10 days. May transfer to [facility] if less expensive. 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 Normal [facility] CNOVon 06-09-2021 CNOV Office Visit (PERVMN ) ROB DWYER ([id number]) 1980 M Date Time Provider Department 06/09/21 12:45 PM CARLA KYLE During your visit today, we recorded the following information about you: Pulse Blood pressure Weight Height 69/minute 124/76 116.3 kg 1.981 m Carla Kyle DO 06/09/2021 3:23 PM Signed [facility] Department of Cardiovascular Medicine SECTION [...] you been evaluated by a physician? Yes, [facility] Have you had an ultrasound? 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 [facility] Telephone (DECLAN) ROB DWYER ([id number]) 1980 M Date Time Provider Department 05/28/21 CARLA KYLE During your visit today, we recorded the following information about you: Janet Arce [facility] 05/28/2021 12:38 PM Signed Received faxed outside records from [facility]. Filed in Dr. Kyle's office for 06/09 appointment. Janet Arce Allergies As of Date: 05/28/2021 Noted Allergy Reaction SEASONAL ALLERGIES 03/10/2016 14 - Other: See Comments Comments: Dogs, cats, ragweed causes sneezing Date Reviewed: 09/19/2018 Reviewed by: Kira Esparza LPN - Fully Assessed Reason for Visit: Received Outside Medical Records [[id number]] Prescriptions as of 05/28/2021 - fluticasone (FLONASE) [...] Encounter Status:Closed by JANET RODRIGUEZ on 05/28/21 Normal [facility] Vital Signs Date Time Vital Sign Value Performing Clinician Faci lity 12-25-2024 13:15-0400 Body temperature 98 [degF] Dr. Cyrus Quinn MD Work Phone: [facility] 12-25-2024 13:15-0400 Diastolic blood pressure 70 mm[Hg] Dr. Cyrus Quinn MD Work Phone: [facility] 12-25-2024 13:15-0400 Heart rate 61 /min Dr. Cyrus Quinn MD Work Phone: [facility] 12-25-2024 13:15-0400 Respiratory rate 16 /min Dr. Cyrus Quinn MD Work Phone: [facility] 12-25-2024 13:15-0400 SaO2% (BldA) [Mass fraction] 100 % Dr. Cyrus Quinn MD Work Phone: [facility] 12-25-2024 13:15-0400 Systolic blood pressure 115 mm[Hg] Dr. Cyrus Quinn MD Work Phone: [facility] 12-25-2024 12:06-0400 Body height 198.[address] Cyrus Quinn MD Work Phone: [facility] 12-25-2024 12:06-0400 Body mass index (BMI) [Ratio] 30.5 kg/m2 Dr. Cyrus Quinn MD Work Phone: [facility] 12-25-2024 12:06-0400 Body weight [address] Cyrus Quinn MD Work Phone: [facility] Encounters Encounter Date Encounter Type Care Provider Facility Start: 12-25-2024 Non-patient / Non-visit Dr. Viktoria Alberto MD -[facility] Start: 12-25-2024 End: 12-25-2024 Admission to same day surgery center Dr. Sekou Alberto MD -Endoscopy Work Phone: Start: 12-25-2024 End: 12-25-2024 ambulatory Cyrus Quinn Facility:[facility] Start: 12-14-2024 Encounter for genera l adult medical examination without abnormal findings [facility] Start: 12-09-2024 End: 12-09-[address] Cyrus Quinn MD Work Phone: -Laboratory Start: 12-09-2024 End: 12-09-[address] Cyrus Quinn MD -Laboratory Work Phone: Start: 12-09-2024 End: 12-09-2024 ambulatory Cyrus Quinn Facility:[facility] Start: 07-19-2024 End: 07-19-2024 ambulatory Cyrus Quinn Facility:[facility] Start: 04-10-2024 End: 04-10-2024 ambulatory Cyrus Quinn Facility:[facility] Start: 07-27-2023 End: 07-27-2023 ambulatory [facility] Work Phone: Start: 07-27-2023 End: 07-27-2023 Patient encounter procedure [facility]-Laboratory, [place] Work Phone: Start: 01-12-2023 End: 01-12-2023 ambulatory [facility] Work Phone: Start: 01-12-2023 End: 01-12-2023 Patient encounter procedure [facility] Work Phone: Start: 09-11-2022 End: 09-11-2022 ambulatory [facility] Work Phone: Start: 09-11-2022 End: 09-11-2022 Patient encounter procedure [facility] Start: 02-26-2022 End: 02-26-[address] Cyrus Quinn Work Phone: [facility] Work Phone: Start: 02-26-2022 End: 02-26-[address] Cyrus Quinn Work Phone: [facility] Start: 02-24-2022 End: 02-24-[address] Cyrus Quinn Work Phone: [facility] Start: 02-03-2022 End: 02-03-[address] Cyrus Quinn Work Phone: [facility] Start: 01-20-2022 End: 01-20-[address] Cyrus Quinn Work Phone: [facility] Start: 01-12-2022 End: 01-12-[address] Cyrus Quinn Work Phone: [facility] Start: 01-05-2022 End: 01-05-[address] Cyrus Quinn Work Phone: [facility] Start: 12-30-2021 End: 12-30-[address] Cyrus Quinn Work Phone: [facility] Start: 12-23-2021 End: 12-23-[address] Cyrus Quinn Work Phone: [facility] Start: 12-16-2021 End: 12-16-[address] Cyrus Quinn Work Phone: [facility] Start: 12-09-2021 End: 12-09-[address] Cyrus Quinn Work Phone: [facility] Start: 12-03-2021 End: 12-03-[address] Cyrus Quinn Work Phone: [facility] Start: 11-27-2021 End: 11-27-[address] Cyrus Quinn Work Phone: [facility] Procedures Date Procedure Procedure Detail Performing Clinician Start: 12-25-[address] Cyrus granados MD Work Phone: Start: 09-11-2022 Pelvis X-ray Plan of Treatment Date Care Activity Detail Author Start: 12-25-2024 Patient discharge [facility] Payers Date Payer Category Payer Self-pay [id number] 2024 Unknown [id number] Unknown [id number] Unknown [id number] Unknown [id number] Unknown [facility] [id number] Unknown [id number] Unknown [id number] Unknown [id number] Unknown [id number] Social History Date Type Detail Facility Start: 02-24-2022 End: 04-29-2022 Tobacco smoking status NHIS Unknown if ever smoked [facility] Start: 1980 Sex Assigned At Male [facility] Start: 04-29-2022 End: 12-25-2024 Tobacco smoking status NHIS Never smoked tobacco (finding) [facility] Goals Date Patient Goal Desired Activity /State Mental Status Date Assessment Result Facility 12-25-2024 Cognitive function Level Of Consciousness Sedated [facility] Work Phone: Clinical Notes 06-09-2021 to 12-25-2024 Note Date & Type Note Facility 12-25-2024 Consult note [facility] 12-25-2024 Evaluation note Diagnosis Onset Date Resolution Screen for colon cancer acute December 25 11:41am [facility] Work Phone: [phone]) 741-659708-11-2025 Procedure note [facility] Medical Records Department [address] [place] [address] Colonoscopy Report MR#: [id number] Acct: [id number] Name: ROB DWYER Rep #:[id number] : 1980 44 From: Sekou prater MD PCP: Dr. Cyrus Quinn MD Status:REG S DC Patient Name: Rob Dwyer Procedure Date: 12/25/2024 12:37 PM Date of : 1980 Age: 44 Procedure: Colonoscopy Indications: Screening for colorectal malignant neoplasm Providers: Sekou Alberto MD Referring MD: Cyrus Quinn MD Medicines: Propofol per Anesthesia Patient Profile: This is a 44 year old male. Refer to note in patient chart for documentation of history and physical. Last Colonoscopy: none. The patient's first colonoscopy is today. Complications: No immediate complications. Procedure: Pre-Anesthesia Assessment: - Prior to the procedure, a History and Physical was performed, and patient medications and allergies were reviewed. The patient's tolerance of previous anesthesia was also reviewed. The risks and benefits of the procedure and the sedation options and risks were discussed with the patient. All questions were answered, and informed consent was obtained. Prior Anticoagulants: The patient has taken no anticoagulant or antiplatelet agents. After reviewing the risks and benefits, the patient was deemed in satisfactory condition to undergo the procedure. After I obtained informed consent, the scope was passed under direct vision. Throughout the procedure, the patient's blood pressure, pulse, and oxygen saturations were monitored continuously. The Colonoscope was introduced through the anus and advanced to the cecum, identified by appendiceal orifice and ileocecal valve. The colonoscopy was performed without difficulty. The patient tolerated the procedure well. The quality of the bowel preparation was good. The ileocecal valve, appendiceal orifice, and rectum were photographed. Scope In: 12:44:26 PM Scope Withdrawal Time 0 hours 6 minutes 12 seconds Scope Out: 12:56:39 PM Total Procedure Duration Time 0 hours 12 minutes 13 seconds Findings: The entire examined colon appeared normal on direct and retroflexion views. Impression: - The entire examined colon is normal on direct and retroflexion views. - No specimens collected. Recommendation: - Discharge patient to home. - Resume previous diet. - Continue present medications. - Repeat colonoscopy in 10 years for screening purposes. Procedure Code(s): --- Professional --- 99551, Colonoscopy, flexible; diagnostic, including collection of specimen(s) by brushing or washing, when performed (separate procedure) Diagnosis Code(s): --- Professional --- Z12.11, Encounter for screening for malignant neoplasm of colon CPT copyright 2021 [employer]. All rights reserved. The codes documented in this report are preliminary and upon hospital coder review may be revised to meet current compliance requirements. Sekou Alberto MD 12/25/2024 12:59:48 PM This report has been signed electronically. Number of Addenda: 0 Note Initiated On: 12/25/2024 12:37 PM 12/25/24 1300 Date _ Sekou Moeller Signature: Date (if indicated) CC: Dr. Sekou Alberto MD; Dr. Cyrus Quinn MD ~ Date Dictated: 12/25/24 1237 Date Transcribed: On Air Director: AC Signed [facility]08-11-2025 Procedure note [facility] Medical Records Department [address] [place] [address] Provation Physician Letter MR#: [id number] Acct: [id number] Name: ROB DWYER Rep #:[id number] : 1980 44 From: Sekou prater MD PCP: Dr. Cyrus Quinn MD Status:REG S DC 12/25/2024 Cyrus Quinn MD [address] [place] [address] Re : Colonoscopy procedure for Rob Dwyer Dear Dr. Quinn This procedure was performed on Wednesday, December 25, 2024. My impressions and recommendations are as follows: Impressions : - The entire examined colon is normal on direct and retroflexion views. - No specimens collected. Recommendations : - Discharge patient to home. - Resume previous diet. - Continue present medications. - Repeat colonoscopy in 10 years for screening purposes. My findings are described in the full procedure note, which is enclosed. If I can be of further assistance, please feel free to contact me at Doctor phone number(s): , Work: . Sincerely, Sekou Alberto MD 12/25/2024 12:59:48 PM This report has been signed electronically. 12/25/24 1300 Date _ Sekou Calabretta MD Cosigner Signature: Date (if indicated) CC: Dr. Sekou Alberto MD; Dr. Cyrus Quinn MD ~ Date Dictated: 12/25/24 1237 Date Transcribed: On Air Director: AC Signed [facility]08-11-2025 Consult note [facility] Medical Records Department [address] [place] [address] Pre-Anesthesia Evaluation 12/25/24 1223 MR#: [id number] Acct: [id number] Name: ROB DWYER Rep #:[id number] : 1980 44 From: Abril Toro CRNA PCP: Dr. Cyrus Quinn MD Status:REG S DC Y Race: C Location: [place] [address] ASA Classification* ASA Classification ASA Classification: 2 Assessment & Plan Anesthesia* Anesthesia Assessment Anesthesia Assessment: Discussed sedation and/or anesthesia options, risks, benefits, and alternatives with patient/parents/legal guardian/POA. Questions invited. The patient/parents/legal guardian/POA seems to understand and agrees to proceedwith anesthesia plan. Reviewed the physical assessment, medical history, allergy history and patient home medications list prior to surgery/procedure/anesthetic and documented any changes. Performed airway and anesthesia risk assessments. Anesthesia Type Anesthesia Type: MAC History Source History Obtained from:: Patient and Chart Anesthesia Focused Assessment* Temperature: 97.7 F Pulse Rate: 77 Blood Pressure: 116/76 Respiratory Rate: 14 Pulse Ox: 100 Oxygen Delivery Method: Room Air Airway Assessment Mouth opens: >3 cm Mallampati Score: II Teeth Condition: Intact Neck Range of motion (ROM): Full ROM Labs Anesthesia Preop lab: CBC WBC 6.6 K/mm3 (4.4-11.0) 01/30/20 09:44 01/30/20 RBC 5.34 M/mm3 (4.6-6.2) 01/30/20 09:44 01/30/20 Hgb 15.6 g/dL (13.0-16.5) 01/30/20 09:44 01/30/20 Hct 48.5 % (40-54) 01/30/20 09:44 01/30/20 Plt Count 221 K/mm3 (150-450) 01/30/20 09:44 01/30/20 CHEMISTRY Potassium 4.1 mmol/L (3.3-5.1) 12/09/24 07:39 12/09/24 Sodium 140 mmol/L (133-145) 12/09/24 07:39 12/09/24 BUN 22 mg/dL (4-19) H 12/09/24 07:39 12/09/24 Creatinine 0.98 mg/dL (0.70-1.20) 12/09/24 07:39 12/09/24 Glucose 108 mg/dL (70-99) H 12/09/24 07:39 12/09/24 TSH 1.16 uIU/mL (0.358-3.74) 01/30/20 09:44 COAG Pre-Assessment Diagnosis/Proposed Procedure Planned Operative Procedure(s): ) Colonoscopy - Open Access Anesthesia History Anesthesia History - cargoman: Anesthesia History - cargoman Hx Hospitalization No 12/21/24 09:19 Any Problems With Anesthesia No 12/21/24 09:19 Cholinesterase deficiency No 12/21/24 09:19 You/Your Family Experience No 12/21/24 09:19 fever (hyperthermia) with Relationship Recent Exposure to Contagious No 12/25/24 12:06 Disease Does patient have nerve No 12/21/24 09:19 stimulator Patient instructed to have device shut off --Does patient have Pacemaker No 12/25/24 12:06 or ICD? When Was Last Pacemaker Check QUESTION #4 FULL TEXT: You/Your Family Experience fever (hyperthermia) with Anesthesia Any additional information?: No Last Oral Intake Last Oral intake: Last Oral Intake NPO since 08:30 12/25/24 12:06 Meds taken in AM with sips of No 12/25/24 12:06 water? Meds patient instructed to take am of surgery Any additional information?: No PONV PONV - cargoman: PONV - cargoman Female No 12/21/24 09:19 HX of Motion Sickness No 12/21/24 09:19 HX of N/V After Surgery No 12/21/24 09:19 Non-Smoker Yes 12/21/24 09:19 Duration of Surgery greater No 12/21/24 09:19 than 60 minutes Number of Risk Factors 1 12/21/24 09:19 PONV Score Low Risk 12/21/24 09:19 Any additional information?: No Height & Weight Height & Weight: Anesthesia: Height & Weight Height 6 ft 6 in 12/25/24 12:06 Weight: 120 kg 12/25/24 12:06 Body Mass Index (BMI) 30.5 12/25/24 12:06 Respiratory Assessment Respiratory Assessment - cargoman: Respiratory Tract Infection Hx - cargoman Hx Respiratory Tract Infection No 12/21/24 09:19 Any additional information?: No STOP Sleep Apnea STOP Sleep Apnea - cargoman: STOP Sleep Apnea - cargoman Hx Hypertension No 12/21/24 09:19 Hx Sleep Apnea Yes 12/21/24 09:19 CPAP Yes 12/21/24 09:19 BIPAP No 12/21/24 09:19 Do you snore loudly (louder than talking or can be heard Do you often feel tired/ fatigued/ sleepy during daytime? Has anyone observed you stop breathing during sleep? STOP Results Positive 12/21/24 09:19 QUESTION #5 FULL TEXT : Do you snore loudly (louder than talking or can be heard through closeddoors)? 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 Specify any problems Hx of Preganancy in last 3 N/A 12/21/24 09:19 Months Nurse Filling Out Transfusion JZOLLINGE 12/21/24 09:19 & Questions: Date: 12/21/24 12/21/24 09:19 Time: 09:21 12/21/24 09:19 Patient unable to answer at this time (ie. confused, unrespo Any additional information?: No /Reproduction History /Reproductive History - cargoman: /Reproductive Hx- cargoman Hx Now No 12/21/24 09:19 Gestational Age (in weeks): EDC: Hx Hx Para Hx Section SAB No 12/21/24 09:19 Any additional information?: No Active Medications Active Medications: Current Medications Generic Name Dose Route Start Last Admin Trade Name Freq PRN Reason Stop Dose Admin Lactated Ringer's 1,000 mls @ 15 mls/hr 12/25/24 12:00 IV .Q48H VICENTE PFSH Medical History Wears glasses Non-smoker CPAP (continuous positive airway pressure) dependence Sleep apnea Viral illness High cholesterol History of hand fracture History of fibula fracture History of seasonal allergies Home Medications ?Medication ?Instructions ?Recorded ?Last Taken ?Type loratadine 10 mg tablet (Claritin) 10 mg PO DAILY PRN allergy symptoms 09/17/20 Unknown History rosuvastatin 5 mg tablet 5 mg PO .QD 09/17/20 Unknown History fluticasone propionate 50 1 spray intranasal DAILY PRN 03/20/22 Unknown History mcg/actuation nasal allergy symptoms spray,suspension (Flonase Allergy Relief) vitamin K2 45 mcg capsule 45 mcg PO DAILY 03/20/22 Unk nown History coenzyme Q10 50 mg capsule 50 mg PO QDAY 07/19/24 Unkn own History meloxicam 15 mg tablet 15 mg PO DAILY 07/19/24 Unkn own History multivitamin (Multiple Vitamins 1 tab PO QAM 07/19/24 Unknown History tablet) Allergy/AdvReac Type Severity Reaction Status Date / Time No Known Allergies Allergy Verified 12/25/24 12:05 Family History Grandfather Colon cancer Brother Depression Father High cholesterol Grandmother Skin cancer Surgical History Hx of discectomy History of wisdom tooth extraction History of vasectomy H/O hand surgery Social History Smoking Status: Never smoker alcohol intake: never substance use type: does not use what type of physical activity do you participate in: none Addt'l Information Additional Findings: Numbness in RLE due to pinched nerve. Patient had microdiscetomy, did not resolve the issue, still has residual numbness. Review of Systems (Anesthesia) ROS Narrative System reviewed and no additional complaints, except as documented. 12/25/24 1228 a OPTICAL MANUFACTURING TECHNICIAN> Date _ Abril Toro OPTICAL MANUFACTURING TECHNICIAN Cosigner Signature: Date CC: ~ Signed [facility]08-11-2025 History and physical note [facility] Medical Records Department [address] [place] [address] History & Physical Exam 12/25/24 1224 MR#: [id number] Acct: [id number] Name: ROB DWYER Rep #:[id number] : 1980 44 From: Sekou prater MD PCP: Dr. Cyrus Quinn MD Status:[facility] Location: [place] [address] HPI - General HPI Narrative ROB DWYER, is a 44 M who presents for screening colonoscopy. He has never had a colonoscopy in the past. He denies abdominal pain or blood in the stool. No family history of colon cancer. [facility] Medical History (Updated 12/25/24 @ 12:[address] Sekou Alberto MD) Wears glasses Non-smoker CPAP (continuous positive airway pressure) dependence Sleep apnea Viral illness High cholesterol History of hand fracture History of fibula fracture History of seasonal allergies Home Medications ?Medication ?Instructions ?Recorded ?Last Taken ?Type loratadine 10 mg tablet (Claritin) 10 mg PO DAILY PRN allergy symptoms 09/17/20 Unknown History rosuvastatin 5 mg tablet 5 mg PO .QD 09/17/20 Unknown History fluticasone propionate 50 1 spray intranasal DAILY PRN 03/20/22 Unknown History mcg/actuation nasal allergy symptoms spray,suspension (Flonase Allergy Relief) vitamin K2 45 mcg capsule 45 mcg PO DAILY 03/20/22 Unk nown History coenzyme Q10 50 mg capsule 50 mg PO QDAY 07/19/24 Unkn own History meloxicam 15 mg tablet 15 mg PO DAILY 07/19/24 Unkn own History multivitamin (Multiple Vitamins 1 tab PO QAM 07/19/24 Unknown History tablet) Allergy/AdvReac Type Severity Reaction Status Date / Time No Known Allergies Allergy Verified 12/25/24 12:05 Family History Grandfather Colon cancer Brother Depression Father High cholesterol Grandmother Skin cancer Surgical History (Updated 12/21/24 @ 09:19 by Rebekah James) Hx of discectomy History of wisdom tooth extraction History of vasectomy H/O hand surgery Social History Smoking Status: Never smoker alcohol intake: never substance use type: does not use what type of physical activity do you participate in: none Past Medical/Surgical History Planned Operation Planned Operative Procedure(s): ) Colonoscopy - Open Access Previous Hospitalizations/Surgeries HX Hospitalizations: No Any Problems With Anesthesia: No You/Your Family Experience Fever (Hyperthermia) With Anes: No Cholinesterase deficiency: No Cardiovascular Hx Hypertension: No Respiratory Hx Sleep Apnea: Yes CPAP: Yes BIPAP: No Hx Respiratory Tract Infection/Cold (presently): No Result (for STOP score): Positive Smoking Status: Never smoker Neurological Does patient have nerve stimulator: No Reproduction : No Miscellaneous Recent Exposure to Contagious Disease: No Allergies No Known Allergies Allergy (Verified 12/25/24 12:05) Discharge Is Pt Admitted From a Prison, or a Long-Term: No After D/C, Where Do you Plan to Go: Return Home Vital Signs Vital Signs Vital Signs: 12/25/24 12:06 12/25/24 12:06 Temperature 97.7 F L Temperature Source Temporal Pulse Rate 77 Respiratory Rate 14 Respiratory Pattern Normal Blood Pressure 116/76 Blood Pressure Mean 89 Blood Pressure Source Monitor Blood Pressure Position Sitting Blood Pressure Location Right Arm Pulse Ox 100 Oxygen Delivery Method Room Air Weight Weight: 264 lb 8.875 oz Body Mass Index (BMI) 30.5 Physical Exam Const alert and oriented x3 HEENT normocephalic Eyes PERRL Resp normal respiratory effort and normal air movement Cardio regular rate and regular rhythm GI soft to palpation, non-tender and non-distended Extremity normal to inspection Assessment & Plan Assessment/Plan (1) Screen for colon cancer: PLAN: I explained endoscopy in detail to the patient. I explained the risks including but not limited to stroke or heart attack with anesthesia, perforationof the GI tract, bleeding, infection. I explained that any of these could necessitate further emergency surgery. The patient understands and all questions were answered sufficiently. The patient wishes to proceed with procedure. Sekou Alberto MD Pager: [facility] [address] [place] [address], [address] [place] [address] Office: Surgery Risks - Colonoscopy Risks Include but are not Limited To: Risks include but are not limited to: Bleeding, perforation requiring further surgery, inability to complete colonoscopy requiring barium enema. 12/25/24 1224 Cosigner Signature (if applicable): CC: Dr. Sekou Alberto MD; Dr. Cyrus Quinn MD~ Signed [facility]09-05-2022 NoteHNO ID: [id number] Author: Maria A Paez APRN.DOCUMENT PHOTOGRAPHER Service: ? Author Type: Nurse Practitioner Type: [...] symptoms occur. Patient agreeable to treatment plan. Maira A Paez [facility] NoteHNO ID: [id number] Author: Britany Rico APRN.DOCUMENT PHOTOGRAPHER Service: ? Author Type: Nurse Practitioner Type: [...] daily for 10 days. May transfer to [facility] if less expensive. FAMILY HISTORY Problem Relation [...] 100 MG TABLET Agrees to plan Declines kamila Rico APRN.[facility]01-24-2022 NoteHNO ID: [id number] Author: Carla Kyle, DO Service: ? Author Type: Physician Type: Progress Notes Filed: 06/09/2021 3:23 PM Note Text: [facility] Department of Cardiovascular Medicine SECTION [...] you been evaluated by a physician? Yes, [facility] Have you had an ultrasound? 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 Cyrus Quinn MD Status:REG S DC Y Race: C Location: [place] [address] ASA Classification* ASA Classification ASA Classification: 2 Assessment & Plan Anesthesia* Anesthesia Assessment Anesthesia Assessment: Discussed sedation and/or anesthesia options, risks, benefits, and alternatives with patient/parents/legal guardian/POA. Questions invited. The patient/parents/legal guardian/POA seems to understand and agrees to proceedwith anesthesia plan. Reviewed the physical assessment, medical history, allergy history and patient home medications list prior to surgery/procedure/anesthetic and documented any changes. Performed airway and anesthesia risk assessments. Anesthesia Type Anesthesia Type: MAC History Source History Obtained from:: Patient and Chart Anesthesia Focused Assessment* Temperature: 97.7 F Pulse Rate: 77 Blood Pressure: 116/76 Respiratory Rate: 14 Pulse Ox: 100 Oxygen Delivery Method: Room Air Airway Assessment Mouth opens: >3 cm Mallampati Score: II Teeth Condition: Intact Neck Range of motion (ROM): Full ROM Labs Anesthesia Preop lab: CBC WBC 6.6 K/mm3 (4.4-11.0) 01/30/20 09:44 01/30/20 RBC 5.34 M/mm3 (4.6-6.2) 01/30/20 09:44 01/30/20 Hgb 15.6 g/dL (13.0-16.5) 01/30/20 09:44 01/30/20 Hct 48.5 % (40-54) 01/30/20 09:44 01/30/20 Plt Count 221 K/mm3 (150-450) 01/30/20 09:44 01/30/20 CHEMISTRY Potassium 4.1 mmol/L (3.3-5.1) 12/09/24 07:39 12/09/24 Sodium 140 mmol/L (133-145) 12/09/24 07:39 12/09/24 BUN 22 mg/dL (4-19) H 12/09/24 07:39 12/09/24 Creatinine 0.98 mg/dL (0.70-1.20) 12/09/24 07:39 12/09/24 Glucose 108 mg/dL (70-99) H 12/09/24 07:39 12/09/24 TSH 1.16 uIU/mL (0.358-3.74) 01/30/20 09:44 COAG Pre-Assessment Diagnosis/Proposed Procedure Planned Operative Procedure(s): ) Colonoscopy - Open Access Anesthesia History Anesthesia History - cargoman: Anesthesia History - cargoman Hx Hospitalization No 12/21/24 09:19 Any Problems With Anesthesia No 12/21/24 09:19 Cholinesterase deficiency No 12/21/24 09:19 You/Your Family Experience No 12/21/24 09:19 fever (hyperthermia) with Relationship Recent Exposure to Contagious No 12/25/24 12:06 Disease Does patient have nerve No 12/21/24 09:19 stimulator Patient instructed to have device shut off --Does patient have Pacemaker No 12/25/24 12:06 or ICD? When Was Last Pacemaker Check QUESTION #4 FULL TEXT: You/Your Family Experience fever (hyperthermia) with Anesthesia Any additional information?: No Last Oral Intake Last Oral intake: Last Oral Intake NPO since 08:30 12/25/24 12:06 Meds taken in AM with sips of No 12/25/24 12:06 water? Meds patient instructed to take am of surgery Any additional information?: No PONV PONV - cargoman: PONV - cargoman Female No 12/21/24 09:19 HX of Motion Sickness No 12/21/24 09:19 HX of N/V After Surgery No 12/21/24 09:19 Non-Smoker Yes 12/21/24 09:19 Duration of Surgery greater No 12/21/24 09:19 than 60 minutes Number of Risk Factors 1 12/21/24 09:19 PONV Score Low Risk 12/21/24 09:19 Any additional information?: No Height & Weight Height & Weight: Anesthesia: Height & Weight Height 6 ft 6 in 12/25/24 12:06 Weight: 120 kg 12/25/24 12:06 Body Mass Index (BMI) 30.5 12/25/24 12:06 Respiratory Assessment Respiratory Assessment - cargoman: Respiratory Tract Infection Hx - cargoman Hx Respiratory Tract Infection No 12/21/24 09:19 Any additional information?: No STOP Sleep Apnea STOP Sleep Apnea - cargoman: STOP Sleep Apnea - cargoman Hx Hypertension No 12/21/24 09:19 Hx Sleep Apnea Yes 12/21/24 09:19 CPAP Yes 12/21/24 09:19 BIPAP No 12/21/24 09:19 Do you snore loudly (louder than talking or can be heard Do you often feel tired/ fatigued/ sleepy during daytime? Has anyone observed you stop breathing during sleep? STOP Results Positive 12/21/24 09:19 QUESTION #5 FULL TEXT : Do you snore loudly (louder than talking or can be heard through closed doors)? 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 Specify any problems Hx of Preganancy in last 3 N/A 12/21/24 09:19 Months Nurse Filling Out Transfusion JZOLLINGE 12/21/24 09:19 & Questions: Date: 12/21/24 12/21/24 09:19 Time: 09:21 12/21/24 09:19 Patient unable to answer at this time (ie. confused, unrespo Any additional information?: No /Reproduction History /Reproductive History - cargoman: /Reproductive Hx- cargoman Hx Now No 12/21/24 09:19 Gestational Age (in weeks): EDC: Hx Hx Para Hx Section SAB No 12/21/24 09:19 Any additional information?: No Active Medications Active Medications: Current Medications Generic Name Dose Route Start Last Admin Trade Name Freq PRN Reason Stop Dose Admin Lactated Ringer's 1,000 mls @ 15 mls/hr 12/25/24 12:00 IV .Q48H VICENTE PFSH Medical History Wears glasses Non-smoker CPAP (continuous positive airway pressure) dependence Sleep apnea Viral illness High cholesterol History of hand fracture History of fibula fracture History of seasonal allergies Home Medications ?Medication ?Instructions ?Recorded ?Last Taken ?Type loratadine 10 mg tablet (Claritin) 10 mg PO DAILY PRN allergy symptoms 09/17/20 Unknown History rosuvastatin 5 mg tablet 5 mg PO .QD 09/17/20 Unknown History fluticasone propionate 50 1 spray intranasal DAILY PRN 03/20/22 Unknown History mcg/actuation nasal allergy symptoms spray,suspension (Flonase Allergy Relief) vitamin K2 45 mcg capsule 45 mcg PO DAILY 03/20/22 Unk nown History coenzyme Q10 50 mg capsule 50 mg PO QDAY 07/19/24 Unkn own History meloxicam 15 mg tablet 15 mg PO DAILY 07/19/24 Unkn own History multivitamin (Multiple Vitamins 1 tab PO QAM 07/19/24 Unknown History tablet) Allergy/AdvReac Type Severity Reaction Status Date / Time No Known Allergies Allergy Verified 12/25/24 12:05 Family History Grandfather Colon cancer Brother Depression Father High cholesterol Grandmother Skin cancer Surgical History Hx of discectomy History of wisdom tooth extraction History of vasectomy H/O hand surgery Social History Smoking Status: Never smoker alcohol intake: never substance use type: does not use what type of physical activity do you participate in: none Addt'l Information Additional Findings: Numbness in RLE due to pinched nerve. Patient had microdiscetomy, did not resolve the issue, still has residual numbness. Review of Systems (Anesthesia) ROS Narrative System reviewed and no additional complaints, except as documented. 12/25/24 1228 <Electronically signed by Abril harp OPTICAL MANUFACTURING TECHNICIAN> Date _ Abril Toro OPTICAL MANUFACTURING TECHNICIAN Cosigner Signature: Date CC: ~ Signed [facility] Work Phone: Consult note Author Kathleen Monsivais [facility] Note Date/Time December 25, 2024 1: 41pm [facility] Medical Records Department [address] [place] [address] Anesthesia Postop Eval I 12/25/24 1305 MR#: [id number] Acct: [id number] Name: ROB DWYER Rep #:[id number] : 1980 44 From: Kathleen carlton CRNA PCP: Dr. Cyrus Quinn MD Status:REG S DC Y Race: C Location: [place] [address] Anesthesia: Postop Eval I Current Vital Signs Temperature: 98.5 F Pulse Rate: 62 Blood Pressure: 111/73 Respiratory Rate: 16 Pulse Ox: 100 Oxygen Delivery Method: Room Air Assessment Airway patent: Yes Spontaneous unlabored respirations: Yes Mental status: Awake and Calm nausea: No Vomiting: No Anesthesia Complication: No Fluid Hydration Crystalloid volume administer (ml): 400 Total IV fluid infused: 400 Progress Note Anesthesia document: Postop Eval 1 completed: Yes 12/25/24 1305 <Electronically signed by Kathleen bennett CRNA> Date _ Kathleen Loi Fatimaigner Signature: Date CC: ~ Signed [facility] Work Phone: Evaluation note* Diagnosis Onset Date Resolution Status Back pain acute Segmental and somatic dysfunction of lumbar region acute Segmental and somatic dysfunction of pelvic region acute Segmental and somatic dysfunction of thoracic region acute Back pain acute Segmental and somatic dysfunction of lumbar region acute Segmental and somatic dysfunction of pelvic region acute Segmental and somatic dysfunction of thoracic region acute Back pain acute Segmental and somatic dysfunction of lumbar region acute Segmental and somatic dysfunction of pelvic region acute Segmental and somatic dysfunction of thoracic region acute Back pain acute Segmental and somatic dysfunction of lumbar region acute Segmental and somatic dysfunction of pelvic region acute Segmental and somatic dysfunction of thoracic region acute Back pain acute Segmental and somatic dysfunction of lumbar region acute Segmental and somatic dysfunction of pelvic region acute Segmental and somatic dysfunction of thoracic region acute Back pain acute Segmental and somatic dysfunction of lumbar region acute Segmental and somatic dysfunction of pelvic region acute Segmental and somatic dysfunction of thoracic region acute Back pain acute Segmental and somatic dysfunction of lumbar region acute Segmental and somatic dysfunction of pelvic region acute Segmental and somatic dysfunction of thoracic region acute Back pain acute Segmental and somatic dysfunction of lumbar region acute Segmental and somatic dysfunction of pelvic region acute Segmental and somatic dysfunction of thoracic region acute Back pain acute Segmental and somatic dysfunction of lumbar region acute Segmental and somatic dysfunction of pelvic region acute Segmental and somatic dysfunction of thoracic region acute Back pain acute Segmental and somatic dysfunction of lumbar region acute Segmental and somatic dysfunction of pelvic region acute Segmental and somatic dysfunction of thoracic region acute Back pain acute Segmental and somatic dysfunction of lumbar region acute Segmental and somatic dysfunction of pelvic region acute Segmental and somatic dysfunction of thoracic region acute [facility] Work Phone: Evaluation noteNo assessment information available [facility] Work Phone: History and physical note Author Sekou Alberto [facility] Note Date/Time December 25, 2024 12 :24pm [facility] Medical Records Department [address] [place] [address] History & Physical Exam 08/11/25 1224 MR#: [id number] Acct: [id number] Name: ROB DWYER Rep #:[id number] : 1980 44 From: Sekou prater MD PCP: Dr. Cyrus Quinn MD Status:REG S GA Location: [place] [address] HPI - General HPI Narrative ROB DWYER, is a 44 M who presents for screening colonoscopy. He has never had a colonoscopy in the past. He denies abdominal pain or blood in the stool. No family history of colon cancer. [facility] Medical History (Updated 12/25/24 @ 12:[address] Sekou Alberto MD) Wears glasses Non-smoker CPAP (continuous positive airway pressure) dependence Sleep apnea Viral illness High cholesterol History of hand fracture History of fibula fracture History of seasonal allergies Home Medications ?Medication ?Instructions ?Recorded ?Last Taken ?Type loratadine 10 mg tablet (Claritin) 10 mg PO DAILY PRN allergy symptoms 09/17/20 Unknown History rosuvastatin 5 mg tablet 5 mg PO .QD 09/17/20 Unknown History fluticasone propionate 50 1 spray intranasal DAILY PRN 03/20/22 Unknown History mcg/actuation nasal allergy symptoms spray,suspension (Flonase Allergy Relief) vitamin K2 45 mcg capsule 45 mcg PO DAILY 03/20/22 Unk nown History coenzyme Q10 50 mg capsule 50 mg PO QDAY 07/19/24 Unkn own History meloxicam 15 mg tablet 15 mg PO DAILY 07/19/24 Unkn own History multivitamin (Multiple Vitamins 1 tab PO QAM 07/19/24 Unknown History tablet) Allergy/AdvReac Type Severity Reaction Status Date / Time No Known Allergies Allergy Verified 12/25/24 12:05 Family History Grandfather Colon cancer Brother Depression Father High cholesterol Grandmother Skin cancer Surgical History (Updated 12/21/24 @ 09:19 by Rebekah James) Hx of discectomy History of wisdom tooth extraction History of vasectomy H/O hand surgery Social History Smoking Status: Never smoker alcohol intake: never substance use type: does not use what type of physical activity do you participate in: none Past Medical/Surgical History Planned Operation Planned Operative Procedure(s): ) Colonoscopy - Open Access Previous Hospitalizations/Surgeries HX Hospitalizations: No Any Problems With Anesthesia: No You/Your Family Experience Fever (Hyperthermia) With Anes: No Cholinesterase deficiency: No Cardiovascular Hx Hypertension: No Respiratory Hx Sleep Apnea: Yes CPAP: Yes BIPAP: No Hx Respiratory Tract Infection/Cold (presently): No Result (for STOP score): Positive Smoking Status: Never smoker Neurological Does patient have nerve stimulator: No Reproduction : No Miscellaneous Recent Exposure to Contagious Disease: No Allergies No Known Allergies Allergy (Verified 12/25/24 12:05) Discharge Is Pt Admitted From a Prison, or a Long-Term: No After D/C, Where Do you Plan to Go: Return Home Vital Signs Vital Signs Vital Signs: 12/25/24 12:06 12/25/24 12:06 Temperature 97.7 F L Temperature Source Temporal Pulse Rate 77 Respiratory Rate 14 Respiratory Pattern Normal Blood Pressure 116/76 Blood Pressure Mean 89 Blood Pressure Source Monitor Blood Pressure Position Sitting Blood Pressure Location Right Arm Pulse Ox 100 Oxygen Delivery Method Room Air Weight Weight: 264 lb 8.875 oz Body Mass Index (BMI) 30.5 Physical Exam Const alert and oriented x3 HEENT normocephalic Eyes PERRL Resp normal respiratory effort and normal air movement Cardio regular rate and regular rhythm GI soft to palpation, non-tender and non-distended Extremity normal to inspection Assessment & Plan Assessment/Plan (1) Screen for colon cancer: PLAN: I explained endoscopy in detail to the patient. I explained the risks including but not limited to stroke or heart attack with anesthesia, perforationof the GI tract, bleeding, infection. I explained that any of these could necessitate further emergency surgery. The patient understands and all questions were answered sufficiently. The patient wishes to proceed with procedure. Sekou Alberto MD Pager: [facility] [address] [place] [address], [address] [place] [address] Office: Surgery Risks - Colonoscopy Risks Include but are not Limited To: Risks include but are not limited to: Bleeding, perforation requiring further surgery, inability to complete colonoscopy requiring barium enema. 12/25/24 1224 <Electronically signed by Sekou Alberto MD> Cosigner Signature (if applicable): CC: Dr. Sekou Alberto MD; Dr. Cyrus Quinn MD~ Signed [facility] Work Phone: Reason for referral (narrative)No reason for referral information availableWSalem [facility] Work Phone: Summary Purpose Family History Relationship Condition Age at Onset Recorded Date/T jack grandfather Malignant neoplasm of colon Unknown brother Depression Unknown father High blood cholesterol Unknown grandmother Malignant neoplasm of skin Unknown Advance Directives Advance Directive Response Recorded Date/ Time Do you have a Healthcare Power of First Crusher? Yes December 21, 2024 9:19am Chief Complaint and Reason for Visit Chief [...] dysfunction of thoracic region Chief Complaint EORDER Reason for Visit Admit Date Screen for colon cancer December 25 11:41am Additional Source Comments (unrecognized sect ion and content) No Status Records FoundNo Status Records Found INFORMATION SOURCE (unrecogn ized section and content) DATE CREATED AUTHOR 01/19/2022 [facility] DATE CREATED AUTHOR AUTHOR'S ORGANIZ ATION 12/23/2024 [facility] Teams (unrecognized sec tion and content) [...] Provi lona, Attending Provider, Referring Provider Active Team Status: Active Member Role/Relationship Status Dates Dr. Cyrus Quinn MD Primary Care Provider Active Team Status: Inactive Member Role/Relationship Status Dates Dr. Cyrus Quinn MD Primary Care Provider Active Start: December 09, 2024 End: December 09, 2024 Dr. Cyrus Quinn MD Attending Provider Active Start: December 09, 2024 End: December 09, 2024 Dr. Cyrus Quinn MD Referring Provider Active Start: December 09, 2024 End: December 09, 2024 Team Status: Inactive Member Role/Relationship Status Dates Dr. Cyrus Quinn MD Primary Care Provider Active Start: December 25, 2024 End: December 25, 2024 Dr. Cyrus Quinn MD Referring Provider Active Start: December 25, 2024 End: December 25, 2024 Dr. Sekou Alberto MD Attending Provider Active Start: December 25, 2024 End: December 25, 2024 Team Status: Active Member Role/Relationship Status Dates Dr. Cyrus Quinn MD Primary Care Provider Active Start: December 25, 2024 Dr. Cyrus Quinn MD Referring Provider Active Start: December 25, 2024 Dr. Sekou Alberto MD Attending Provider Active Start: December 25, 2024 Dr. Sekou Alberto MD Other Provider Active Start: December 25, 2024 FOR RECORDS PERTAINING TO PATIENTS WHO ARE [...] BE BASED ON THE PRIMARY CLINICAL RECORDS. [facility] [employer] [facility]. provides no warranty or guarantee of the accuracy or completeness of information in this document.
--- OUTSIDE RECORDS SUMMARY | 2024-12-25 19:23 | XMS RPT_ITS | CCD ---
Author Organization [facility] CliniSymn Care Team Providers Care Pediatric Dietician Name Role Phone Dr. Cyrus Quinn Primary Care Provider Kai, Dr. Bridges Referring Provider Adrian, Dr. Quintero Attending Provider [phone] Kai GONZALEZ, Dr. Bridges Primary Care Provider Kai GONZALEZ, Dr. Bridges Attending Provider Kai GONZALEZ, Dr. Bridges Referring Provider Cyrus [...] Dolly GONZALEZ, Dr. Sapp Attending Provider [phone] Dolly GONZALEZ, Dr. Sapp Other Provider [phone] Medications Current Medications Medication Drug Class(es) Dates [...] 12-09-2024 Anion gap [Moles/Vol] 11 mmol/L 09-28 [facility] BUN/creatinine ratioOrdered By: Cyrus Quinn on 12-09-2024 Urea nitrogen/Creatinine [Mass ratio] 22.9 mg/mg High - [facility] Basic Metabolic Profile (BMP )on 12-09-2024 BUN/CRE 22.9 RATIO High - [facility] Comment on above: Performed By: #### L 500.4100, L500.2500 #### [facility] [address] [place], [address] Calcium [Mass/Vol] 9.4 mg/dL Normal 7.6-11.0 [facility] Comment on above: Performed By: #### L 500.4100, L500.2500 #### [facility] [address] [place], [address] Chloride [Moles/Vol] 104 mmol/L Normal 98-108 [facility] Comment on above: Performed By: #### L 500.4100, L500.2500 #### [facility] [address] [place], [address] CO2 [Moles/Vol] 24.3 mmol/L Normal 21.0-32.0 [facility] Comment on above: Performed By: #### L 500.4100, L500.2500 #### [facility] [address] [place], [address] Creatinine [Mass/Vol] 0.98 mg/dL Normal 0.70-1.20 [facility] Comment on above: Performed By: #### L 500.4100, L500.2500 #### [facility] [address] [place], [address] GAP 11 Normal 5-15 [facility] Comment on above: Performed By: #### L 500.4100, L500.2500 #### [facility] [address] [place], [address] GFR/1.73 sq M.predicted among non-blacks MDRD (S/P/Bld) [Vol rate/Area] 97 mL/min/{1.73_m2} Normal >60 [facility] Comment on above: Result Comment: mL/m in/1.73m2 CKD-EPI Creatinine Equation (2020) Performed By: #### L 500.4100, L500.2500 #### [facility] [address] [place], [address] Glucose [Mass/Vol] 108 mg/dL High 70-99 [facility] Comment on above: Performed By: #### L 500.4100, L500.2500 #### [facility] [address] [place], [address] Potassium [Moles/Vol] 4.1 mmol/L Normal 3.3-5.1 [facility] Comment on above: Performed By: #### L 500.4100, L500.2500 #### [facility] [address] [place], [address] Sodium [Moles/Vol] 140 mmol/L Normal 133-145 [facility] Comment on above: Performed By: #### L 500.4100, L500.2500 #### [facility] [address] [place], [address] Urea nitrogen [Mass/Vol] 22 mg/dL High 4-19 [facility] Comment on above: Performed By: #### L 500.4100, L500.2500 #### [facility] [address] [place], [address] Calculated very low density lipoprotein (VLDL) cholesterol measurementOrdered By: Cyrus Quinn on 12-09-2024 Calculated very low density lipoprotein (VLDL) cholesterol measurement 12 mg/dL 5-40 [facility] Carbon dioxide, total [Moles /volume] in Central venous bloodOrdered By: Cyrus Quinn on 12-09-2024 CO2 [Moles/Vol] 24.3 mmol/L 21.0-32.0 [facility] Chloride assayOrdered By: Driss Quinn on 12-09-2024 Chloride [Moles/Vol] 104 mmol/L 98-108 [facility] Glomerular filtration rate ( GFR) estimation/1.73 sq m using serum, plasma, or whole bOrdered By: Cyrus Quinn on 12-09-2024 GFR/1.73 sq M.predicted among non-blacks MDRD (S/P/Bld) [Vol rate/Area] 97 mL/min/{1.73_m2} >60 [facility] Comment on above: mL/min/1.73m2 CKD-EP I Creatinine Equation (2020) LDL calc ser/plasOrdered By: Cyrus Quinn on 12-09-2024 Cholesterol in LDL [Mass/Vol] 109 mg/dL [facility] Comment on above: Edvtkukyqf=980-469 m g/dL & Higher Cfsj=415 mg/dL or greaterFriedwald Equation for LDL-C Lipid Profileon 12-09-2024 CHOL:HDL 3.18 Normal [facility] Comment on above: Performed By: #### L 500.4100, L500.2500 #### [facility] [address] [place], [place], [id number] (200) Cholesterol [Mass/Vol] 177 mg/dL Normal <=200 [facility] Comment on above: Result Comment: Chol esterol level, Desirable <200 mg/dL Borderline high cholesterol 200-239 mg/dL High cholesterol >=240 mg/dL Recommendations of the NCEP Adult Treatment Panel for the following risk-cutoff thresholds for the [place] population. Performed By: #### L 500.4100, L500.2500 #### [facility] [address] [place], [place], [address] Cholesterol in HDL [Mass/Vol] 56 mg/dL Normal [facility] Comment on above: Result Comment: Candi onal Cholesterol Education Program (NCEP) guidelines: <40 mg/dL: Low HDL-cholesterol (major risk factor for CHD) >= 60 mg/dL: High HDL-cholesterol (negative risk factor for CHD) HDL-cholesterol is affected by a number of factors, e.g. smoking, exercise, hormones, sex and age. Performed By: #### L 500.4100, L500.2500 #### [facility] [address] [place], [address] Cholesterol in LDL [Mass/Vol] 109 mg/dL Normal [facility] Comment on above: Result Comment: Bord qamhjc=557-027 mg/dL Higher Qzgj=456 mg/dL or greater Friedwald Equation for LDL-C Performed By: #### L 500.4100, L500.2500 #### [facility] [address] [place], [address] Cholesterol in VLDL [Mass/Vol] 12 mg/dL Normal 5-40 [facility] Comment on above: Performed By: #### L 500.4100, L500.2500 #### [facility] [address] [place], [address] Triglyceride [Mass/Vol] 60 mg/dL Normal [facility] Comment on above: Result Comment: The drugs N-Acetylcysteine and Metamizole may falsely depress this assay. Normal range: <150 mg/dL Borderline High: 150-199 mg/dL High: 200-499 mg/dL Very High: >500 mg/dL Performed By: #### L 500.4100, L500.2500 #### [facility] [address] [place], [address] Potassium measurement (mass/ volume)Ordered By: Cyrus Quinn on 12-09-2024 Potassium (Unsp spec) [Mass/Vol] 4.1 mmol/L 3.3-5.1 [facility] Screening total cholesterol/ high density lipoprotein (HDL) cholesterol ratioOrdered By: Cyrus Quinn on 12-09-2024 Cholesterol.total/Ada sterol in HDL [Mass ratio] 3.18 {ratio} [facility] Serum creatinine measurement (mass/volume)Ordered By: Cyrus Quinn on 12-09-2024 Creatinine [Mass/Vol] 0.98 mg/dL 0.70-1.20 [facility] Serum glucose measurement (m ass/volume)Ordered By: Cyrus Quinn on 07-26-2025 Glucose [Mass/Vol] 108 mg/dL High 70-99 [facility] Serum or plasma calcium lottie urement (mass/volume)Ordered By: Cyrus Quinn on 12-09-2024 Calcium [Mass/Vol] 9.4 mg/dL 7.6-11.0 [facility] Serum or plasma cholesterol in HDL measurement (mass/volume)Ordered By: Cyrus Quinn on 12-09-2024 Cholesterol in HDL [Mass/Vol] 56 mg/dL >40 [facility] Comment on above: National Cholesterol Education Program (NCEP) guidelines:<40 mg/dL: Low HDL-cholesterol (major risk factor for CHD)>= 60 mg/dL: High HDL-cholesterol (negative risk factor for CHD)HDL-cholesterol is affected by a number of factors, e.g. smoking, exercise, hormones, sex and age. Serum or plasma cholesterol measurement (mass/volume)Ordered By: Cyrus Quinn on 12-09-2024 Cholesterol [Mass/Vol] 177 mg/dL <201 [facility] Comment on above: Cholesterol level, D esirable <200 mg/dLBorderline high cholesterol 200-239 mg/dLHigh cholesterol >=240 mg/dLRecommendations of the NCEP Adult Treatment Panel for the following risk-cutoff thresholds for the [place] population. Serum or plasma urea nitroge n measurement (mass/volume)Ordered By: Cyrus Quinn on 12-09-2024 Urea nitrogen [Mass/Vol] 22 mg/dL High 4-19 [facility] Sodium levelOrdered By: Cyrus Quinn on 12-09-2024 Sodium [Moles/Vol] 140 mmol/L 133-145 [facility] Triglycerides measurementOrd ered By: Cyrus Quinn on 12-09-2024 Triglyceride [Mass/Vol] 60 mg/dL <199 [facility] Comment on above: The drugs N-Acetylcy steine and Metamizole may falsely depress this assay. Normal range: <150 mg/dLBorderline High: 150-199 mg/dLHigh: 200-499 mg/dLVery High: >500 mg/dL Urgent Care Visit Reporton 0 07-19-2024 Urgent Care Visit Report [facility] [address], [address] [place] [address] OFFICE VISIT Date of Service: 07/19/24 MR#: [id number] Acct: [id number] Name: ROB DWYER Rep #: [id number] : 1980 Provider: ALISE Gill Age/Sex: 44/M Location: [facility] Status: Signed Intake Vital Signs 03/20/22 17:39 [...] is old and did yard work Wednesday. [facility] Medical History (Updated 07/19/24 @ 08:50 by [...] most likely viral in origin and recommended [id number] treatments as needed for symptomatic relief. Will follow-up with PCP if symptoms not improving. 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 Signature: Date (if applicable) CC: Normal Mozier [facility] Urgent Care Visit Reporton 1 06-10-2023 Urgent Care Visit Report [facility] [address], [address] [place] [address] OFFICE VISIT Date of Service: 04/10/24 MR#: [id number] Acct: [id number] Name: ROB DWYER Rep #: [id number] : 1980 Provider: DRISS Villalobos Age/Sex: 44/M Location: [facility] Status: Signed Intake Vital Signs 03/20/22 17:39 04/10/24 09:31 Height 6 ft 6 in BP 124/78 H Blood Pressure Location Lt brachial Position Sitting Respiration 14 Pulse 71 Pulse Source NIBP Temp 98.0 F Temp Source Oral Pulse Oximetry (%) 97 Oxygen Delivery Method room air Intake Visit Reasons: COUGH/CONGESTION/L EYE COMPLAINT Chief Complaint: cough, congestion/ l eye irritation 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 Normal [facility] Basophil percentageOrdered B y: Cyrus Quinn on 07-27-2023 Chloride [Moles/Vol] 108 mmol/L 98-107 [facility] Cholesterol [Mass/Vol] 131 mg/dL <200 [facility] Comment on above: <200 mg/dL Desirable 200-240 mg/dL Borderline >240 mg/dL High Risk Glucose [Mass/Vol] 115 mg/dL 74-106 [facility] Comment on above: Fasting Glucose resu lt from 100 to 125 mg/dL suggests IMPAIRED HOMEOSTASIS per A.D.A. criteria. Potassium [Moles/Vol] 3.9 mmol/L 3.5-5.1 [facility] Sodium [Moles/Vol] 142 mmol/L 136-145 [facility] Triglyceride [Mass/Vol] 54 mg/dL <199 [facility] Comment on above: The drugs N-Acetylcy steine and Metamizole may falsely depress this assay.Serum Triglycerides Reference Interval Normal <150 mg/dL Borderline high 150 - 199 mg/dL High 200 - 499 mg/dL Very High > or = 500 mg/dL Laboratory - Chemistry and C hemistry - challengeOrdered By: Cyrus Quinn on 07-27-2023 Cholesterol in HDL [Mass/Vol] 50 mg/dL >40 [facility] Comment on above: The drugs N-Acetylcy steine and Metamizole may falsely depress this assay. Reference Range HDL <40 mg/dL Low HDL Cholesterol HDL >or= 60 mg/dL High HDL Cholesterol Cholesterol in LDL [Mass/Vol] 70 mg/dL 0-130 [facility] CO2 [Moles/Vol] 29.0 mmol/L 21.0-32.0 [facility] Urea nitrogen/Creatinine [Mass ratio] 19.7 mg/mg 10-20 [facility] No Panel InformationOrdered By: Cyrus Quinn on 07-27-2023 Estimated GFR (MDRD) Amer 115 mL/min >60 [facility] Comment on above: GFR Calc Estimated GFR (MDRD) Non-Af Amer 95 mL/min >60 [facility] Comment on above: Non- GFR Calc VLDL Cholesterol 11 mg/dL 5-40 [facility] Serum or plasma calcium lottie urement (mass/volume)Ordered By: Cyrus Quinn on 07-27-2023 Calcium [Mass/Vol] 8.9 mg/dL 8.5-10.1 [facility] Serum or plasma creatinine m easurement (mass/volume)Ordered By: Cyrus Quinn on 07-27-2023 Creatinine [Mass/Vol] 0.91 mg/dL 0.70-1.30 [facility] Comment on above: The validity of the calculated GFR & GFRAA in patients over 70 years has not been determined. Clinical correlation is essential. Serum or plasma urea nitroge n measurement (mass/volume)Ordered By: Cyrus Quinn on 07-27-2023 Urea nitrogen [Mass/Vol] 18 mg/dL 7-18 [facility] Thin prep Papanicolaou smear with manual screeningOrdered By: Cyrus Quinn on 07-27-2023 Thin prep Papanicolaou smear with manual screening 5 5-15 [facility] Whole blood hemoglobin A1c/t otal hemoglobin ratio (mass fraction)Ordered By: Cyrus Quinn on 07-27-2023 HbA1c (Bld) [Mass fraction] 5.9 % 3.8-5.6 [facility] Comment on above: Normal < 5.7 % Predi abetic 5.7 - 6.4 % Diabetic >or= 6.5 % Please note range changes. Basophil percentageOrdered B y: Cyrus Quinn on 01-12-2023 Bilirubin [Mass/Vol] 0.30 mg/dL 0.20-1.00 [facility] Comment on above: For patients on eltr ombopag therapy, use of Dimension Daggett TBIL is not recommended. Chloride [Moles/Vol] 108 mmol/L 98-107 [facility] Cholesterol [Mass/Vol] 141 mg/dL <200 [facility] Comment on above: <200 mg/dL Desirable 200-240 mg/dL Borderline >240 mg/dL High Risk Glucose [Mass/Vol] 113 mg/dL 74-106 [facility] Comment on above: Fasting Glucose resu lt from 100 to 125 mg/dL suggests IMPAIRED HOMEOSTASIS per A.D.A. criteria. Potassium [Moles/Vol] 3.7 mmol/L 3.5-5.1 [facility] Protein [Mass/Vol] 7.1 g/dL 6.4-8.2 [facility] Sodium [Moles/Vol] 142 mmol/L 136-145 [facility] Triglyceride [Mass/Vol] 60 mg/dL <199 [facility] Comment on above: The drugs N-Acetylcy steine and Metamizole may falsely depress this assay.Serum Triglycerides Reference Interval Normal <150 mg/dL Borderline high 150 - 199 mg/dL High 200 - 499 mg/dL Very High > or = 500 mg/dL Laboratory - Chemistry and C hemistry - challengeOrdered By: Cyrus Quinn on 01-12-2023 ALP [Catalytic activity/Vol] 69 U/L 45-117 [facility] ALT [Catalytic activity/Vol] 47 U/L 16-61 [facility] CO2 [Moles/Vol] 30.0 mmol/L 21.0-32.0 [facility] Globulin (S) [Mass/Vol] 3.3 g/dL 2.2-4.2 [facility] Urea nitrogen/Creatinine [Mass ratio] 20.8 mg/mg 10-20 [facility] No Panel InformationOrdered By: Cyrus Quinn on 01-12-2023 Estimated GFR (MDRD) Amer 103 mL/min >60 [facility] Comment on above: GFR Calc Estimated GFR (MDRD) Non-Af Amer 85 mL/min >60 [facility] Comment on above: Non- GFR Calc Serum or plasma albumin lottie urement (mass/volume)Ordered By: Cyrus Quinn on 01-12-2023 Albumin [Mass/Vol] 3.8 g/dL 3.2-5.0 [facility] Serum or plasma albumin/glob ulin mass ratioOrdered By: Cyrus Quinn on 01-12-2023 Albumin/Globulin [Mass ratio] 1.2 {ratio} 0.9-2.4 [facility] Serum or plasma calcium lottie urement (mass/volume)Ordered By: Cyrus Quinn on 01-12-2023 Calcium [Mass/Vol] 9.0 mg/dL 8.5-10.1 [facility] Serum or plasma cholesterol in HDL measurement (mass/volume)Ordered By: Cyrus Quinn on 01-12-2023 Cholesterol in HDL [Mass/Vol] 44 mg/dL >40 [facility] Comment on above: The drugs N-Acetylcy steine and Metamizole may falsely depress this assay. Reference Range HDL <40 mg/dL Low HDL Cholesterol HDL >or= 60 mg/dL High HDL Cholesterol Serum or plasma cholesterol in VLDL measurement (mass/volume)Ordered By: Cyrus Quinn on 01-12-2023 Cholesterol in VLDL [Mass/Vol] 12 mg/dL 5-40 [facility] Serum or plasma creatinine m easurement (mass/volume)Ordered By: Cyrus Quinn on 01-12-2023 Creatinine [Mass/Vol] 1.01 mg/dL 0.70-1.30 [facility] Comment on above: The validity of the calculated GFR & GFRAA in patients over 70 years has not been determined. Clinical correlation is essential. Serum or plasma low density lipoprotein (LDL) cholesterol measurement (mass/volume)Ordered By: Cyrus Quinn on 01-12-2023 Cholesterol in LDL [Mass/Vol] 85 mg/dL 0-130 [facility] Serum or plasma urea nitroge n measurement (mass/volume)Ordered By: Cyrus Quinn on 01-12-2023 Urea nitrogen [Mass/Vol] 21 mg/dL 7-18 [facility] Thin prep Papanicolaou smear with manual screeningOrdered By: Cyrus Quinn on 01-12-2023 Thin prep Papanicolaou smear with manual screening 20 U/L 15-37 [facility] Thin prep Papanicolaou smear with manual screening 4 5-15 [facility] Basophil percentageon 2021 Bilirubin [Mass/Vol] 0.30 mg/dL 0.20-1.00 [facility] Work Phone: Comment on above: For patients on eltr ombopag therapy, use of Dimension Daggett TBIL is not recommended. Chloride [Moles/Vol] 106 mmol/L 98-107 [facility] Work Phone: Cholesterol [Mass/Vol] 177 mg/dL <200 [facility] Work Phone: Comment on above: <200 mg/dL Desirable 200-240 mg/dL Borderline >240 mg/dL High Risk Glucose [Mass/Vol] 107 mg/dL 74-106 [facility] Work Phone: Comment on above: Fasting Glucose resu lt from 100 to 125 mg/dL suggests IMPAIRED HOMEOSTASIS per A.D.A. criteria. Potassium [Moles/Vol] 3.8 mmol/L 3.5-5.1 [facility] Work Phone: Protein [Mass/Vol] 7.2 g/dL 6.4-8.2 [facility] Work Phone: Sodium [Moles/Vol] 141 mmol/L 136-145 [facility] Work Phone: Triglyceride [Mass/Vol] 80 mg/dL <199 [facility] Work Phone: Comment on above: The drugs N-Acetylcy steine and Metamizole may falsely depress this assay.Serum Triglycerides Reference Interval Normal <150 mg/dL Borderline high 150 - 199 mg/dL High 200 - 499 mg/dL Very High > or = 500 mg/dL Laboratory - Chemistry and C hemistry - challengeon 02-26-2022 ALP [Catalytic activity/Vol] 63 U/L 45-117 [facility] Work Phone: ALT [Catalytic activity/Vol] 50 U/L 16-61 [facility] Work Phone: CO2 [Moles/Vol] 27.0 mmol/L 21.0-32.0 [facility] Work Phone: Globulin (S) [Mass/Vol] 3.5 g/dL 2.2-4.2 [facility] Work Phone: Urea nitrogen/Creatinine [Mass ratio] 18.0 mg/mg 10-20 [facility] Work Phone: No Panel Informationon 02-26 Estimated GFR (MDRD) Amer 111 mL/min >60 [facility] Work Phone: Comment on above: GFR Calc Estimated GFR (MDRD) Non-Af Amer 92 mL/min >60 [facility] Work Phone: Comment on above: Non- GFR Calc Serum or plasma albumin lottie urement (mass/volume)on 02-26-2022 Albumin [Mass/Vol] 3.7 g/dL 3.2-5.0 [facility] Work Phone: Serum or plasma albumin/glob ulin mass ratioon 02-26-2022 Albumin/Globulin [Mass ratio] 1.1 {ratio} 0.9-2.4 [facility] Work Phone: Serum or plasma calcium lottie urement (mass/volume)on 02-26-2022 Calcium [Mass/Vol] 9.0 mg/dL 8.5-10.1 [facility] Work Phone: Serum or plasma cholesterol in HDL measurement (mass/volume)on 02-26-2022 Cholesterol in HDL [Mass/Vol] 49 mg/dL >40 [facility] Work Phone: Comment on above: The drugs N-Acetylcy steine and Metamizole may falsely depress this assay. Reference Range HDL <40 mg/dL Low HDL Cholesterol HDL >or= 60 mg/dL High HDL Cholesterol Serum or plasma cholesterol in VLDL measurement (mass/volume)on 02-26-2022 Cholesterol in VLDL [Mass/Vol] 16 mg/dL 5-40 [facility] Work Phone: Serum or plasma creatinine m easurement (mass/volume)on 02-26-2022 Creatinine [Mass/Vol] 0.95 mg/dL 0.70-1.30 [facility] Work Phone: Comment on above: The validity of the calculated GFR & GFRAA in patients over 70 years has not been determined. Clinical correlation is essential. Serum or plasma low density lipoprotein (LDL) cholesterol measurement (mass/volume)on 02-26-2022 Cholesterol in LDL [Mass/Vol] 112 mg/dL 0-130 [facility] Work Phone: Serum or plasma urea nitroge n measurement (mass/volume)on 02-26-2022 Urea nitrogen [Mass/Vol] 17 mg/dL 7-18 [facility] Work Phone: Thin prep Papanicolaou smear with manual screeningon 02-26-2022 Thin prep Papanicolaou smear with manual screening 13 U/L 15-37 [facility] Work Phone: Thin prep Papanicolaou smear with manual screening 8 5-15 [facility] Work Phone: CNOVon 01-19-2022 CNOV Office Visit (UCWSTR ) ROB DWYER ([id number]) 1980 M Date Time Provider Department 01/19/22 10:15 AM MARIA A PAEZ [facility] During your visit today, we recorded the following information about you: Temperature Pulse Respiration Blood pressure 97.1 degrees 70/minute 21/minute 140/78 Weight 120.6 kg Maria A Paez APRN.ORDER PROCESSOR 01/19/2022 10:25 AM Signed CC: Patient presents [...] agreeable to treatment plan. Maria A Paez APRN.ORDER PROCESSOR Referring Provider: SELF [200] Allergies As of [...] Q10 20 (more content not included)... Normal [facility] CNOVon 07-27-2021 CNOV Office Visit (UCWSTR ) ROB DWYER ([id number]) 1980 M Date Time Provider Department 07/27/21 [...] daily for 10 days. May transfer to [facility] if less expensive. 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 Normal [facility] CNOVon 06-09-2021 CNOV Office Visit (PERVMN ) ROB DWYER ([id number]) 1980 M Date Time Provider Department 06/09/21 12:45 PM CARLA KYLE During your visit today, we recorded the following information about you: Pulse Blood pressure Weight Height 69/minute 124/76 116.3 kg 1.981 m Carla Kyle DO 06/09/2021 3:23 PM Signed [facility] [place] [facility] Department of Cardiovascular Medicine SECTION [...] you been evaluated by a physician? Yes, [facility] Have you had an ultrasound? 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 [facility] Tele[facility] (DECLAN) ROB DWYER ([id number]) 1980 M Date Time Provider Department 05/28/21 CARLA KYLE During your visit today, we recorded the following information about you: Janet Arce [facility] [place]/28/2021 12:38 PM Signed Received faxed outside records from [facility]. Filed in Dr. Kyle's office for 06/09 [...] Status:Closed by JANET RODRIGUEZ on 05/28/21 Normal [facility] Vital Signs Date Time Vital Sign Value Performing Clinician Faci lity 12-25-2024 13:15-0400 Body temperature 98 [degF] Dr. Cyrus Quinn MD Work Phone: [facility] 12-25-2024 13:15-0400 Diastolic blood pressure 70 mm[Hg] Dr. Cyrus Quinn MD Work Phone: [facility] 12-25-2024 13:15-0400 Heart rate 61 /min Dr. Cyrus Quinn MD Work Phone: [facility] 12-25-2024 13:15-0400 Respiratory rate 16 /min Dr. Cyrus Quinn MD Work Phone: [facility] 12-25-2024 13:15-0400 SaO2% (BldA) [Mass fraction] 100 % Dr. Cyrus Quinn MD Work Phone: [facility] 12-25-2024 13:15-0400 Systolic blood pressure 115 mm[Hg] Dr. Cyrus Quinn MD Work Phone: [facility] 12-25-2024 12:06-0400 Body height 198.[address] Cyrus Quinn MD Work Phone: [facility] 12-25-2024 12:06-0400 Body mass index (BMI) [Ratio] 30.5 kg/m2 Dr. Cyrus Quinn MD Work Phone: [facility] 12-25-2024 12:06-0400 Body weight [address] Cyrus Quinn MD Work Phone: [facility] Encounters Encounter Date Encounter Type Care Provider Facility Start: 12-25-2024 Non-patient / Non-visit Dr. Viktoria Alberto MD -[facility] Start: 12-25-2024 End: 12-25-2024 Admission to same day surgery center Dr. Sekou Alberto MD -Endoscopy Work Phone: Start: 12-25-2024 End: 12-25-2024 ambulatory Cyrus Quinn Facility:[facility] Start: 12-14-2024 Encounter for genera l adult medical examination without abnormal findings [facility] Start: 12-09-2024 End: 12-09-[address] Cyrus Quinn MD Work Phone: -Laboratory Start: 12-09-2024 End: 12-09-[address] Cyrus Quinn MD -Laboratory Work Phone: Start: 12-09-2024 End: 12-09-2024 ambulatory Cyrus Quinn Facility:[facility] Start: 07-19-2024 End: 07-19-2024 ambulatory Cyrus Quinn Facility:[facility] Start: 04-10-2024 End: 04-10-2024 ambulatory Cyrus Quinn Facility:[facility] Start: 07-27-2023 End: 07-27-2023 ambulatory [facility] Work Phone: Start: 07-27-2023 End: 07-27-2023 Patient encounter procedure [facility], [place] Work Phone: Start: 01-12-2023 End: 01-12-2023 ambulatory [facility] Work Phone: Start: 01-12-2023 End: 01-12-2023 Patient encounter procedure [facility] Work Phone: Start: 09-11-2022 End: 09-11-2022 ambulatory [facility] Work Phone: Start: 09-11-2022 End: 09-11-2022 Patient encounter procedure [facility] Start: 02-26-2022 End: 02-26-[address] Cyrus Quinn Work Phone: [facility] Work Phone: Start: 02-26-2022 End: 02-26-[address] Cyrus Quinn Work Phone: [facility] Start: 02-24-2022 End: 02-24-[address] Cyrus Quinn Work Phone: [facility] Start: 02-03-2022 End: 02-03-[address] Cyrus Quinn Work Phone: [facility] Start: 01-20-2022 End: 01-20-[address] Cyrus Quinn Work Phone: [facility] Start: 01-12-2022 End: 01-12-[address] Cyrus Quinn Work Phone: [facility] Start: 01-05-2022 End: 01-05-[address] Cyrus Quinn Work Phone: [facility] Start: 12-30-2021 End: 12-30-[address] Cyrus Quinn Work Phone: [facility] Start: 12-23-2021 End: 12-23-[address] Cyrus Quinn Work Phone: [facility] Start: 12-16-2021 End: 12-16-[address] Cyrus Quinn Work Phone: [facility] Start: 12-09-2021 End: 12-09-[address] Cyrus Quinn Work Phone: [facility] Start: 12-03-2021 End: 12-03-[address] Cyrus Quinn Work Phone: [facility] Start: 11-27-2021 End: 11-27-[address] Cyrus Quinn Work Phone: [facility] Procedures Date Procedure Procedure Detail Performing Clinician Start: 12-25-[address] Cyrus granados MD Work Phone: Start: 09-11-2022 Pelvis X-ray Plan of Treatment Date Care Activity Detail Author Start: 12-25-2024 Patient discharge [facility] Payers Date Payer Category Payer Self-pay [id number] 2024 Unknown [id number] Unknown [id number] Unknown [id number] Unknown [facility] [id number] Unknown [id number] Unknown [id number] [id number] Unknown [id number] [id number] Unknown [id number] Social History Date Type Detail Facility Start: 02-24-2022 End: 04-29-2022 Tobacco smoking status NHIS Unknown if ever smoked [facility] Start: 1980 Sex Assigned At Male [facility] Start: 04-29-2022 End: 12-25-2024 Tobacco smoking status NHIS Never smoked tobacco (finding) [facility] Goals Date Patient Goal Desired Activity /State Mental Status Date Assessment Result Facility 12-25-2024 Cognitive function Level Of Consciousness Sedated [facility] Work Phone: Clinical Notes 06-09-2021 to 12-25-2024 Note Date & Type Note Facility 12-25-2024 Consult note [facility] 12-25-2024 Evaluation note Diagnosis Onset Date Resolution Screen for colon cancer acute December 25 11:41am [facility] Work Phone: 1(255) 703-444908-11-2025 Procedure note [facility] Medical Records Department [address] [place] [address] Colonoscopy Report MR#: [id number] Acct: [id number] Name: ROB DWYER Rep #:[id number] : [...] screening purposes. Procedure Code(s): --- Professional --- 09114, Colonoscopy, flexible; diagnostic, including collection of specimen(s) by brushing or washing, when performed (separate procedure) Diagnosis Code(s): --- Professional --- Z12.11, Encounter for screening for malignant neoplasm of colon CPT copyright 2021 [employer]. All rights reserved. The codes documented in this report are preliminary and upon global compensation director review may be revised to meet current compliance requirements. Sekou Alberto MD 12/25/2024 12:59:48 PM This report has been signed electronically. Number of Addenda: 0 Note Initiated On: 12/25/2024 12:37 PM 12/25/24 1300 Date _ Sekou Moeller Signature: Date (if indicated) CC: Dr. Sekou Alberto MD; Dr. Cyrus Quinn MD ~ Date Dictated: 12/25/24 1237 Date Transcribed: Mold Yard Supervisor: AC Signed [facility]08-11-2025 Procedure note [facility] Medical Records Department [address] [place] [address] Provation Physician Letter MR#: [id number] Acct: [id number] Name: ROB DWYER Rep #:[id number] : 1980 44 From: Sekou prater MD PCP: Dr. Cyrus Quinn MD Status:REG S DC 12/25/2024 Cyrus Quinn MD [address] [place] [address] Re : Colonoscopy procedure for Rob Dwyer [...] ~ Date Dictated: 12/25/24 1237 Date Transcribed: Mold Yard Supervisor: AC Signed [facility]08-11-2025 Consult note [facility] Medical Records Department [address] [place] [address] Pre-Anesthesia Evaluation 12/25/24 1223 MR#: [id number] Acct: [id number] Name: ROB DWYER Rep #:[id number] : 1980 44 From: Abril Toro CRNA PCP: Dr. Cyrus Quinn MD Status:REG S DC Y Race: C Location: [place] [address] ASA Classification* ASA Classification ASA Classification: 2 [...] Open Access Anesthesia History Anesthesia History - house visitor: Anesthesia History - house visitor Hx Hospitalization No 12/21/24 09:19 Any Problems [...] Any additional information?: No PONV PONV - house visitor: PONV - house visitor Female No 12/21/24 09:19 HX of Motion [...] 12/25/24 12:06 Respiratory Assessment Respiratory Assessment - house visitor: Respiratory Tract Infection Hx - house visitor Hx Respiratory Tract Infection No 12/21/24 09:19 Any additional information?: No STOP Sleep Apnea STOP Sleep Apnea - house visitor: STOP Sleep Apnea - house visitor Hx Hypertension No 12/21/24 09:19 Hx Sleep [...] Tobacco Use History Tobacco Use History - house visitor: Tobacco Use History - house visitor Tobacco Use Smoking Status Never smoker 12/21/24 09:19 Hx Tobacco Use No 12/21/24 09:19 Years Smoking Packs Smoked per Day Smoking Cessation Date was within the last 15 years Hx Smoking Cessation Date Hx Smoking Cessation Counseling Any additional information?: No Hematologic Medial History Hematologic Hx - house visitor: 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 12/25/24 1228 a [employer]> Date _ Abril Toro [employer] Cosigner Signature: Date CC: ~ Signed [facility]08-11-2025 History and physical note [facility] Medical Records Department [address] [place] [address] History & Physical Exam 12/25/24 1224 MR#: [id number] Acct: [id number] Name: ROB DWYER Rep #:[id number] : 1980 44 From: Sekou prater MD PCP: Dr. Cyrus Quinn MD Status:[facility] Location: [place] [address] HPI - General HPI Narrative ROB DWYER, is a 44 M who presents for screening colonoscopy. He has never had a colonoscopy in the past. He denies abdominal pain or blood in the stool. No family history of colon cancer. [facility] Medical History (Updated 12/25/24 @ 12:24 by [...] 12:05) Discharge Is Pt Admitted From a Longterm, or a Alf: No After D/C, Where Do you Plan [...] proceed with procedure. Sekou Alberto MD Pager: [facility] [address] [place] [address], [address] [place] [address] Office: Surgery Risks - Colonoscopy Risks Include but are not Limited To: Risks include but are not limited to: Bleeding, perforation requiring further surgery, inability to complete colonoscopy requiring barium enema. 12/25/24 1224 Cosigner Signature (if applicable): CC: Dr. Sekou Alberto MD; Dr. Cyrus Quinn MD~ Signed [facility]09-05-2022 NoteHNO ID: [id number] Author: Maria A Paez APRN.ORDER PROCESSOR Service: ? Author Type: Nurse Practitioner Type: [...] agreeable to treatment plan. [facility]ae[facility] NoteHNO ID: [id number] Author: Britany Rico APRN.ORDER PROCESSOR Service: ? Author Type: Nurse Practitioner Type: [...] daily for 10 days. May transfer to [facility] if less expensive. FAMILY HISTORY Problem Relation [...] TABLET Agrees to plan Declines kamila Rico APRN.[facility]01-24-2022 NoteHNO ID: [id number] Author: Carla Kyle, DO Service: ? Author Type: Physician Type: Progress Notes Filed: 06/09/2021 3:23 PM Note Text: [facility] [place] [facility] Department of Cardiovascular Medicine SECTION [...] you been evaluated by a physician? Yes, [facility] vein [facility] Have you had an ultrasound? 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 Medical Records Department [address] [place] [address] Pre-Anesthesia Evaluation 12/25/24 1223 MR#: [id number] Acct: [id number] Name: ROB DWYER Rep #:[id number] : 1980 44 From: Abril Toro CRNA PCP: Dr. Cyrus Quinn MD Status:REG S DC Y Race: C Location: [place] [address] ASA Classification* ASA Classification ASA Classification: 2 [...] Open Access Anesthesia History Anesthesia History - house visitor: Anesthesia History - house visitor Hx Hospitalization No 12/21/24 09:19 Any Problems [...] Any additional information?: No PONV PONV - house visitor: PONV - house visitor Female No 12/21/24 09:19 HX of Motion [...] 12/25/24 12:06 Respiratory Assessment Respiratory Assessment - house visitor: Respiratory Tract Infection Hx - house visitor Hx Respiratory Tract Infection No 12/21/24 09:19 Any additional information?: No STOP Sleep Apnea STOP Sleep Apnea - house visitor: STOP Sleep Apnea - house visitor Hx Hypertension No 12/21/24 09:19 Hx Sleep [...] Tobacco Use History Tobacco Use History - house visitor: Tobacco Use History - house visitor Tobacco Use Smoking Status Never smoker 12/21/24 09:19 Hx Tobacco Use No 12/21/24 09:19 Years Smoking Packs Smoked per Day Smoking Cessation Date was within the last 15 years Hx Smoking Cessation Date Hx Smoking Cessation Counseling Any additional information?: No Hematologic Medial History Hematologic Hx - house visitor: 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 Medical Records Department [address] [place] [address] Anesthesia Postop Eval I 12/25/24 1305 MR#: [id number] Acct: [id number] Name: ROB DWYER Rep #:[id number] : 1980 44 From: Kathleen carlton CRNA PCP: Dr. Cyrus Quinn MD Status:REG S DC Y Race: C Location: [place] [address] Anesthesia: Postop Eval I Current Vital Signs [...] Loi Fatimaigner Signature: Date CC: ~ Signed [facility] Work Phone: Evaluation note* Diagnosis Onset Date [...] and somatic dysfunction of thoracic region acute [facility] Work Phone: Evaluation noteNo assessment information available [facility] Work Phone: History and physical note Author Sekou Alberto [facility] Note Date/Time December 25, 2024 12 :24pm [facility] Medical Records Department [address] [place] [address] History & Physical Exam 08/11/25 1224 MR#: [id number] Acct: [id number] Name: ROB DWYER Rep #:[id number] : 1980 44 From: Sekou prater MD PCP: Dr. Cyrus Quinn MD Status:REG S [place] Location: [place] [address] HPI - General HPI Narrative ROB DWYER, is a 44 M who presents for screening colonoscopy. He has never had a colonoscopy in the past. He denies abdominal pain or blood in the stool. No family history of colon cancer. [facility] Medical History (Updated 12/25/24 @ 12:24 by [...] 12:05) Discharge Is Pt Admitted From a Longterm, or a Alf: No After D/C, Where Do you Plan [...] proceed with procedure. Sekou Alberto MD Pager: [facility] [address] [place] [address], [address] [place] [address] Office: Surgery Risks - Colonoscopy Risks Include but are not Limited To: Risks include but are not limited to: Bleeding, perforation requiring further surgery, inability to complete colonoscopy requiring barium enema. 12/25/24 1224 <Electronically signed by Sekou Alberto MD> Cosigner Signature (if applicable): CC: Dr. Sekou Alberto MD; Dr. Cyrus Quinn MD~ Signed [facility] Work Phone: Reason for referral (narrative)No reason for referral information availableWHen[facility] Work Phone: Summary Purpose Family History Relationship Condition Age at Onset Recorded Date/T jack grandfather Malignant neoplasm of colon Unknown brother Depression Unknown father High blood cholesterol Unknown grandmother Malignant neoplasm of skin Unknown Advance Directives Advance Directive Response Recorded Date/ Time Do you have a Healthcare Power of Litigation Secretary? Yes December 21, 2024 9:19am Chief Complaint [...] section and content) DATE CREATED AUTHOR 01/19/2022 [facility] DATE CREATED AUTHOR AUTHOR'S ORGANIZ ATION 12/23/2024 [facility] Care Teams (unrecognized sec tion and content) [...] BE BASED ON THE PRIMARY CLINICAL RECORDS. [facility] [facility]. provides no warranty or guarantee of the accuracy or completeness of information in this document.
== END 2024-12-25 13:41 | disposition home or self-care (01) ==
LOC: EN 11:42 → AC 11:43
PROVIDERS: PCP Family Medicine; Referring Provider Family Medicine; Visit Provider Surgery
PROC: 0DJD8ZZ Inspection of Lower Intestinal Tract, Via Natural or Artificial Opening Endoscopic (ICD-10-PCS; CPT 45378; principal; 2024-12-25 12:40)
DX: Z12.11 Encounter for screening for malignant neoplasm of colon (principal); E78.00 Pure hypercholesterolemia, unspecified; Z99.89 Dependence on other enabling machines and devices; G47.30 Sleep apnea, unspecified; Z98.52 Vasectomy status
CPT/HCPCS: 45378

== ENCOUNTER → 2025-01-22 | Outpatient (CLI) | payer OTHER, SELFPAY ==
--- NOTE | 2025-01-22 14:24 | RAD_ITS ---
PROCEDURE: KNEE 4 OR MORE VIEWS 01/22/2025 REASON FOR EXAM: KNEE PAIN TECHNIQUE: Procedure Code: RADKN Modality: DX Procedure: KNEE 4 OR MORE VIEWS Laterality: Right COMPARISON: None. RAD/Knee 4 or More Views IMPRESSION: No right knee joint effusion is seen. Minimal degenerative changes are seen, without apparent joint narrowing. No fracture or dislocation is seen. If clinical concern persists, short-term follow-up imaging may be obtained to r ule out a currently occult fracture. Reading Location: [place] [address]
== END | disposition home or self-care (01) ==
LOC: MTRAD 14:22
PROVIDERS: PCP Family Medicine; Referring Provider Family Medicine; Visit Provider Family Medicine
DX: M25.561 Pain in right knee (principal)
CPT/HCPCS: 73564